=== PATIENT | male | born 1945 | race Caucasian/White ===

== ENCOUNTER 2017-02-12 12:53 | Inpatient (IN) | payer OTHER ==
[2017-02-12] MEDS ORDERED: Albuterol/Ipratropium NEB.SOL* Albuterol 2.5 MG/Ipratropium 0.5 MG 3 ML INH ONE (13:07)
[2017-02-12] MEDS ORDERED: NS 0.9% 1000 ML* 1,000 ML IV SCH (13:15)
[2017-02-12 13:28] LABS: Hematocrit 37 % (42-52); Hemoglobin 12.2 g/dl (14.0-18.0); Mean Corpuscular HGB Conc 33 g/dl (31-36); Mean Corpuscular Hemoglobin 28 pg (27-31); Mean Corpuscular Volume 85 fL (80-94); Mean Platelet Volume 8 um3 (7.4-10.4); Red Blood Count 4.35 10^6/ul (4.0-5.4); Red Cell Distribution Width 15 % (10.5-15); White Blood Count 19.8 10^3/ul (3.5-10.8)
[2017-02-12 13:30] LABS: Add Diff/Slide Review? Slide Review Added; Comments Flag Yes
[2017-02-12 13:42] LABS: ALT 26 U/L (7-52); AST 20 U/L (13-39); Albumin 3.3 g/dL (3.2-5.2); Alkaline Phosphatase 93 U/L (34-104); Anion Gap 10 mmol/L (2-11); BUN/Creatinine Ratio 31.7 (8-20); Blood Urea Nitrogen 59 mg/dL (6-24); C Reactive Protein 459.29 mg/L (< 5.00); CO2 Carbon Dioxide 25 mmol/L (22-32); Calcium 9.5 mg/dL (8.6-10.3); Chloride 97 mmol/L (101-111); Creatine Kinase 107 U/L (10-223); EGFR African American 46.3 (>60); Globulin 4.3 g/dL (2-4); Glucose 163 mg/dL (70-100); Lipase < 10 U/L (11.0-82.0); Magnesium 2.9 mg/dL (1.9-2.7); Potassium 4.5 mmol/L (3.5-5.0); Sodium 132 mmol/L (133-145); Total Protein 7.6 g/dL (6.4-8.9)
[2017-02-12] MEDS ORDERED: Azithromycin IV(*) 500 MG in NS 0.9% 250 ML* 250 ML IVPB ONE (13:43)
[2017-02-12] MEDS ORDERED: cefTRIAXone(*) 1 GM in NS 0.9% 50 ML* 50 ML IVPB ONE (13:43)
[2017-02-12 13:46] LABS: Troponin I 0.34 ng/mL (<0.04)
[2017-02-12] MEDS ORDERED: Aspirin Low Dose CHEW TAB* 81 MG PO ONE (13:46)
[2017-02-12] MEDS ORDERED: NS 0.9% 250 ML* 250 ML ONE (13:48)
[2017-02-12] MEDS ORDERED: Iodixanol* (CONTRAST) 320 MG/ML 100 ML SDV IV ONE (13:52)
[2017-02-12 14:25] LABS: TSH (Thyroid Stimulating Horm) 0.69 mcIU/mL (0.34-5.60)
[2017-02-12 14:31] LABS: Urine Bacteria Absent (Absent); Urine Bilirubin Negative (Negative); Urine Glucose Negative (Negative); Urine Nitrite Negative (Negative)
[2017-02-12] MEDS ORDERED: Albuterol/Ipratropium NEB.SOL* Albuterol 2.5 MG/Ipratropium 0.5 MG 3 ML INH PRN (14:47)
[2017-02-12] MEDS ORDERED: Acetaminophen TAB* 325 MG PO PRN (14:47)
[2017-02-12] MEDS ORDERED: Al Hydrox/Mg Hydrox/Simet LIQ* 30 ML UDC PO PRN (14:47)
--- NOTE | 2017-02-12 14:49 | RAD ---
INDICATION: Chest pain. Short of breath. Evaluate for pulmonary embolus. COMPARISON: Screening CT examination of the chest October 07, 2016; external chest x-ray February 12, 2017 TECHNIQUE: Axial source images were obtained from the thoracic inlet to the hemidiaphragms following administration of [address] angiographic technique was utilized. Coronal and sagittal reconstructed images were acquired. CHEST FINDINGS: Neck/thyroid: The visualized neck to include the thyroid appear normal. Chest wall: There are no acute abnormalities of the bony thorax or chest wall. There is no supraclavicular, infraclavicular, or axillary lymphadenopathy. Lungs : There is now significant left-sided atelectasis with volume loss and mild mediastinal shift to left. These findings are all new. The right lung is clear aside from mild gravity dependent atelectasis. Cardiomediastinal structures: There is no CT evidence of acute pulmonary embolic disease. The heart is normal in size. There is no pericardial effusion. There is no evidence of aortic aneurysm or dissection. There is is a mildly prominent right peritracheal lymph node measuring 1.1 cm in short axis. There are additional lymph nodes but none is enlarged by size criteria. The esophagus appears normal. Pleura : There is significant left subpleural fluid with multiple areas of loculation both posterolaterally and anteromedially extending to near the apex. Other: None. IMPRESSION: 1. INTERVAL DEVELOPMENT OF SIGNIFICANT CONSOLIDATION/ATELECTASIS LEFT LOWER LOBE. 2. NEW LOCULATED PLEURAL FLUID LEFT CHEST. 3. REFERRAL FOR BRONCHOSCOPY MAY BE INDICATED. A CHEST TUBE MAY BE REQUIRED TO AID IN LUNG REEXPANSION 4. NO CT EVIDENCE OF ACUTE PULMONARY EMBOLIC DISEASE.
[2017-02-12] MEDS: cefTRIAXone VIAL(*) 1,000 MG in NS 0.9% 50 ML* 50 ML IVPB SCH (15:10)
[2017-02-12] MEDS ORDERED: Dextrose 50% Syringe 50 ML* 25 GM/50 ML SYRINGE IV PUSH PRN (15:28)
[2017-02-12] MEDS: NS 0.9% 1000 ML* 1,000 ML IV ONE ×2 (15:31→15:56)
[2017-02-12] MEDS ORDERED: Perflutren Lipid Microsphere* 3 ML VIAL ONE (16:24)
--- NOTE | 2017-02-12 16:55 | ED ---
Deacon Peterson Rebecca, scribed for Donny Hamilton MD on 02/12/17 at 1318 . Shortness of Breath - HPI Summary HPI Summary: Pt is a 72 y/o M BIBA from his PCPs office who presents to ED c/o SOB characterized as dyspnea at rest. Pt reports he has not been feeling well for the last 2 weeks. Sx aggravated and alleviated by nothing, unchanged by respiratory Tx administered by EMS. Additionally c/o productive cough with the mucous being yellow. Denies fever, chills, edema, and abd pain. Recently returned from long travel. Does not use O2 at home and is not on blood thinners. Pt was sent to [facility] ED by his PCP after a CXR was done, showing PNA, per EMS. SHx current smoker. No PMHx CHF, AK. - History of Current Complaint Chief Complaint: EDShortnessOfBreath Time Seen by Provider: 02/12/17 12:54 Hx Obtained From: Patient Onset/Duration: Still Present Dyspnea At: Rest Aggrevating Factors: Nothing Alleviating Factors: Nothing Associated Signs & Symptoms: Cough (Productive) - Allergy/Home Medications Allergies/Adverse Reactions: Allergies Allergy/AdvReac Type Severity Reaction Status Date / Time Sulfa Antibiotics Allergy Unknown Unknown Verified 02/12/17 15:34 Reaction Details Home Medications: Home Medications Aspirin TAB* [Aspirin 325 MG TAB*] 325 mg PO DAILY 02/12/17 [History Confirmed 02/12/17] Atorvastatin* [Lipitor*] 10 mg PO DAILY 02/12/17 [History Confirmed 02/12/17] Cholecalciferol [Vitamin D3] 10,000 unit PO DAILY 02/12/17 [History Confirmed ] Lisinopril TAB* [Prinivil TAB*] 10 mg PO DAILY 02/12/17 [History Confirmed 02/12] Magnesium Oxide TAB* [MagOx 400 TAB*] 800 mg PO DAILY 02/12/17 [History Confirmed 02/12/17] Morphine Sulfate [Morphine Sulfate ER] 15 mg PO TID PRN MDD 30 mg 02/12/17 [ History Confirmed 02/12/17] Percy-3 Fatty Acids (Nf) [Fish Oil (NF)] 1,000 mg PO BID 02/12/17 [History Confirmed 02/12/17] Pramipexole TAB* [Mirapex TAB*] 0.125 mg PO BID 02/12/17 [History Confirmed ] metFORMIN* [Glucophage 500 MG TAB *] 500 mg PO BID 02/12/17 [History Confirmed 02/12/17] oxyCODONE TAB* [Roxycodone TAB 5 mg*] 15 mg PO Q8HR PRN MDD 45 mg 02/12/17 [ History Confirmed 02/12/17] PMH/Surg Hx/FS Hx/Imm Hx Endocrine/Hematology History: Reports: Hx Diabetes - TYPE II DIABETES Cardiovascular History: Denies: Hx Congestive Heart Failure, Hx Myocardial Infarction Respiratory History: Reports: Hx Sleep Apnea Musculoskeletal History: Reports: Hx Arthritis - KNEES Sensory History: Reports: Hx Cataracts, Hx Contacts or Glasses - GLASSES Opthamlomology History: Reports: Hx Cataracts, Hx Contacts or Glasses - GLASSES Psychiatric History: Reports: Hx Depression - Surgical History Surgery Procedure, Year, and Place: REPAIR RIGHT ANKLE FX-CMC. TONSILS REMOVED A CHILD Hx Anesthesia Reactions: No Infectious Disease History: Denies: Traveled Outside the [place] in Last 30 Days - Family History Known Family History: Positive: Other - [place] - Social History Alcohol Use: Daily Substance Use Type: Reports: None Smoking Status (MU): Heavy Every Day Tobacco Smoker Review of Systems Negative: Fever, Chills Positive: Shortness Of Breath - dyspnea at rest, Cough - productive Negative: Abdominal Pain Negative: Edema All Other Systems Reviewed And Are Negative: Yes Physical Exam - Summary Physical Exam Summary: General: Moderately ill-appearing, mild respiratory distress Skin: warm, color reflects adequate perfusion, dry Head: normal Eyes: EOMI, NAVEED ENT: normal Neck: supple, nontender Respiratory: breath sounds present, bilateral rhonchi Cardiovascular: RRR Abdomen: soft, nontender Bowel: present Musculoskeletal: strength/ROM intact, bilateral pedal edema Neurological: normal, sensory/motor intact, A&O x3 Psychological: affect/mood appropriate Triage Information Reviewed: Yes Vital Signs On Initial Exam: Initial Vitals Temp Pulse Resp BP Pulse Ox 97.9 F 81 18 175/90 92 02/12/17 12:58 02/12/17 12:58 02/12/17 12:58 02/12/17 12:58 02/12/17 12:58 Vital Signs Reviewed: Yes - [place] Coma Scale Coma Scale Total: 15 Diagnostics - Vital Signs Vital Signs Temp Pulse Resp BP Pulse Ox 02/12/17 12:58 97.9 F 81 18 175/90 92 - Laboratory Lab Results: Lab Results 02/12/17 02/12/17 02/12/17 Range/Units 13:10 13:10 13:10 WBC 19.8 H (3.5-10.8) 10^3/ul RBC 4.35 (4.0-5.4) 10^6/ul Hgb 12.2 L (14.0-18.0) g/dl Hct 37 L (42-52) % MCV 85 (80-94) fL MCH 28 (27-31) pg MCHC 33 (31-36) g/dl RDW 15 (10.5-15) % Plt Count 531 H (150-450) 10^3/ul MPV 8 (7.4-10.4) um3 Neut % (Auto) 86.2 H (38-83) % Lymph % (Auto) 5.1 L (25-47) % [place] % (Auto) 7.3 (1-9) % Eos % (Auto) 0.3 (0-6) % Baso % (Auto) 1.1 (0-2) % Absolute Neuts (auto) 17.1 H (1.5-7.7) 10^3/ul Absolute Lymphs (auto) 1.0 (1.0-4.8) 10^3/ul Absolute Monos (auto) 1.4 H (0-0.8) 10^3/ul Absolute Eos (auto) 0.1 (0-0.6) 10^3/ul Absolute Basos (auto) 0.2 (0-0.2) 10^3/ul Absolute Nucleated RBC 0.01 10^3/ul Nucleated RBC % 0 INR (Anticoag Therapy) 1.19 H (0.89-1.11) APTT 26.8 (26.0-36.3) seconds D-Dimer, Quantitative > 1050 H (Less Than 230) ng/mL Sodium 132 L (133-145) mmol/L Potassium 4.5 (3.5-5.0) mmol/L Chloride 97 L (101-111) mmol/L Carbon Dioxide 25 (22-32) mmol/L Anion Gap 10 (2-11) mmol/L BUN 59 H (6-24) mg/dL Creatinine 1.86 H (0.67-1.17) mg/dL Est GFR ( Amer) 46.3 (>60) Est GFR (Non-Af Amer) 36.0 (>60) BUN/Creatinine Ratio 31.7 H (8-20) Glucose 163 H (70-100) mg/dL Lactic Acid (0.5-2.0) mmol/L Calcium 9.5 (8.6-10.3) mg/dL Magnesium 2.9 H (1.9-2.7) mg/dL Total Bilirubin 0.50 (0.2-1.0) mg/dL AST 20 (13-39) U/L ALT 26 (7-52) U/L Alkaline Phosphatase 93 (34-104) U/L Total Creatine Kinase 107 (10-223) U/L CK-MB (CK-2) 8.5 H (0.6-6.3) ng/mL Troponin I 0.34 H* (<0.04) ng/mL C-Reactive Protein 459.29 H (< 5.00) mg/L B-Natriuretic Peptide ( - 100) pg/mL Total Protein 7.6 (6.4-8.9) g/dL Albumin 3.3 (3.2-5.2) g/dL Globulin 4.3 H (2-4) g/dL Albumin/Globulin Ratio 0.8 L (1-3) Lipase < 10 L (11.0-82.0) U/L TSH 0.69 (0.34-5.60) mcIU/mL Urine Color Urine Appearance Urine pH (5-9) Ur Specific Luther (1.010-1.030) Urine Protein (Negative) Urine Ketones (Negative) Urine Blood (Negative) Urine Nitrate (Negative) Urine Bilirubin (Negative) Urine Urobilinogen (Negative) Ur Leukocyte Esterase (Negative) Urine WBC (Auto) (Absent) Urine RBC (Auto) (Absent) Ur Squamous Epith Cells (Absent) Urine Bacteria (Absent) Urine Glucose (Negative) 02/12/17 02/12/17 02/12/17 Range/Units 13:10 13:10 14:00 WBC (3.5-10.8) 10^3/ul RBC (4.0-5.4) 10^6/ul Hgb (14.0-18.0) g/dl Hct (42-52) % MCV (80-94) fL MCH (27-31) pg MCHC (31-36) g/dl RDW (10.5-15) % Plt Count (150-450) 10^3/ul MPV (7.4-10.4) um3 Neut % (Auto) (38-83) % Lymph % (Auto) (25-47) % [place] % (Auto) (1-9) % Eos % (Auto) (0-6) % Baso % (Auto) (0-2) % Absolute Neuts (auto) (1.5-7.7) 10^3/ul Absolute Lymphs (auto) (1.0-4.8) 10^3/ul Absolute Monos (auto) (0-0.8) 10^3/ul Absolute Eos (auto) (0-0.6) 10^3/ul Absolute Basos (auto) (0-0.2) 10^3/ul Absolute Nucleated RBC 10^3/ul Nucleated RBC % INR (Anticoag Therapy) (0.89-1.11) APTT (26.0-36.3) seconds D-Dimer, Quantitative (Less Than 230) ng/mL Sodium (133-145) mmol/L Potassium (3.5-5.0) mmol/L Chloride (101-111) mmol/L Carbon Dioxide (22-32) mmol/L Anion Gap (2-11) mmol/L BUN (6-24) mg/dL Creatinine (0.67-1.17) mg/dL Est GFR ( Amer) (>60) Est GFR (Non-Af Amer) (>60) BUN/Creatinine Ratio (8-20) Glucose (70-100) mg/dL Lactic Acid 1.2 (0.5-2.0) mmol/L Calcium (8.6-10.3) mg/dL Magnesium (1.9-2.7) mg/dL Total Bilirubin (0.2-1.0) mg/dL AST (13-39) U/L ALT (7-52) U/L Alkaline Phosphatase (34-104) U/L Total Creatine Kinase (10-223) U/L CK-MB (CK-2) (0.6-6.3) ng/mL Troponin I (<0.04) ng/mL C-Reactive Protein (< 5.00) mg/L B-Natriuretic Peptide 412 H ( - 100) pg/mL Total Protein (6.4-8.9) g/dL Albumin (3.2-5.2) g/dL Globulin (2-4) g/dL Albumin/Globulin Ratio (1-3) Lipase (11.0-82.0) U/L TSH (0.34-5.60) mcIU/mL Urine Color Yellow Urine Appearance Clear Urine pH 5.0 (5-9) Ur Specific Luther 1.017 (1.010-1.030) Urine Protein 1+(30 mg/dl) H (Negative) Urine Ketones Negative (Negative) Urine Blood Negative (Negative) Urine Nitrate Negative (Negative) Urine Bilirubin Negative (Negative) Urine Urobilinogen Negative (Negative) Ur Leukocyte Esterase Negative (Negative) Urine WBC (Auto) Trace(0-5/hpf) (Absent) Urine RBC (Auto) Trace(0-2/hpf) (Absent) Ur Squamous Epith Cells Present H (Absent) Urine Bacteria Absent (Absent) Urine Glucose Negative (Negative) Result Diagrams: 02/12/17 13:10 02/12/17 13:10 Lab Statement: Any lab studies that have been ordered have been reviewed, and results considered in the medical decision making process. - CT Chest/Thorax CTA CT Interpretation: Positive (See Comments) - 1. INTERVAL DEVELOPMENT OF SIGNIFICANT CONSOLIDATION/ATELECTASIS LEFT LOWER LOBE. 2. NEW LOCULATED PLEURAL FLUID LEFT CHEST. 3. REFERRAL FOR BRONCHOSCOPY MAY BE INDICATED. A CHEST TUBE MAY BE REQUIRED TO AID IN LUNG REEXPANSION 4. NO CT EVIDENCE OF ACUTE PULMONARY EMBOLIC DISEASE. ED physician reviewed this radiology report and agrees. CT Interpretation Completed By: Radiologist - EKG 1324 Cardiac Rate: NL - 80 bpm EKG Rhythm: Sinus Rhythm Ectopy: None EKG Interpretation: Non-specific IVCD with LAD Re-Evaluation - Re-Evaluation First Eval Re-Evaluation Time: 13:48 Comment: Discussed plan to admit the pt. Course/Dx - Course Assessment/Plan: Pt is a 72 y/o M BIBA from his PCPs office who presents to ED c /o SOB characterized as dyspnea at rest. Pt reports he has not been feeling well for the last 2 weeks. Sx unchanged by respiratory Tx administered by EMS. Additionally c/o productive cough with the mucous being yellow. Denies fever, chills, edema, and abd pain. Recently returned from long travel. Does not use O2 at home and is not on blood thinners. Pt was sent to [facility] ED by his PCP after a CXR was done, showing PNA, per EMS. SHx current smoker. No PMHx CHF, AK. D- Dimer > 1050, CRP of 459.29, Troponin of 0.34, WBC of 19.8 H. Chest/thorax CTA reveals "1. INTERVAL DEVELOPMENT OF SIGNIFICANT CONSOLIDATION/ATELECTASIS LEFT LOWER LOBE. 2. NEW LOCULATED PLEURAL FLUID LEFT CHEST. 3. REFERRAL FOR BRONCHOSCOPY MAY BE INDICATED. A CHEST TUBE MAY BE REQUIRED TO AID IN. LUNG REEXPANSION. 4. NO CT EVIDENCE OF ACUTE PULMONARY EMBOLIC DISEASE." EKG reveals sinus rhythm with non-specific IVCD with LAD. In the ED course, the pt received ASA, Rocephin, Zithromax, Duoneb and fluids. Discussed care of pt with Dr. Iliana Faith, hospitalist, who accepts the pt for admission. Elevated BP noted and advised to f/u with PCP. ADMIT HOSPITALIST TO ICU - Diagnoses Provider Diagnoses: Pneumonia, Elevated troponin, Hypoxia - Physician Notifications Discussed Care of Patient With: Iliana Faith Time Discussed With Above Provider: 13:35 Instructed by Provider To: Other - Accepted the pt for admission. - Critical Care Time Critical Care Time: 30-74 min Discharge - Discharge Plan Condition: Guarded Disposition: ADMITTED TO [facility] documentation as recorded by the Deacon arthur Rebecca accurately reflects the service I personally performed and the decisions made by me, Donny Hamilton MD.
[2017-02-12] MEDS ORDERED: Lidocaine 1% INJ* 10 MG/ML 30 ML SDV ONE (17:19)
[2017-02-12] MEDS: oxyCODONE/Acetamin 5/325 MG* TAB PO PRN ×2 (18:14→23:19)
[2017-02-12] MEDS: Insulin LISPRO* 1 UNITS UNIT SUBCUT SCH ×2 (18:28→21:48)
--- NOTE | 2017-02-12 18:45 | RAD ---
HISTORY: Status post chest tube placement COMPARISONS: February 12, 2017 at 12:45 PM VIEWS:1: Single frontal portable view of the chest at 6:25 PM FINDINGS: LINES AND TUBES: There is been interval placement of left-sided chest tube. CARDIOMEDIASTINAL SILHOUETTE: The cardiomediastinal silhouette is stable. PLEURA: There is a moderate left pleural effusion, slightly decreased compared to the previous examination. LUNG PARENCHYMA: There is patchy alveolar opacification of the left mid and lower lung pascal ABDOMEN: The upper abdomen is clear. There is no subphrenic gas. BONES AND SOFT TISSUES: No bone or soft tissue abnormalities are noted. IMPRESSION: 1. LEFT PLEURAL EFFUSION WITH LEFT MID AND LOWER LUNG ATELECTASIS VERSUS CONSOLIDATION. 2. LEFT-SIDED CHEST TUBE
[2017-02-12] MEDS: Docusate CAP* 100 MG PO SCH (21:04)
[2017-02-12] MEDS: oxyCODONE TAB* 5 MG TAB PO PRN (21:04)
[2017-02-12] MEDS: Pramipexole TAB* 0.125 MG PO SCH (21:04)
--- NOTE | 2017-02-12 21:26 | HP ---
CC: Dr. Perdomo; Dr. Haines, Dr. Cordova; Dr. Crocker * HISTORY AND PHYSICAL: DATE OF ADMISSION: 02/12/17 PRIMARY CARE PROVIDER: Dr. Perdomo. CHIEF COMPLAINT: Shortness of breath, cough, and weakness. HISTORY OF PRESENT ILLNESS: Hosea Vasquez is a 72-year-old male with history of diabetes, hypertension, hyperlipidemia, obesity, who stated that he had been traveling to [place] and [place]. He flew in and out of [place] within the past several days. He stated that for the past 5 days, he has been having cough productive of yellow sputum and pain in the left axillary region that was pleuritic. When he was evaluated today in the ER, he was noted to be hypoxemic with oxygen saturation of 88% on room air. He had significant loculated left- sided pleural effusion. He is going to be admitted to the intensive care unit with a diagnosis of most likely empyema. PAST MEDICAL HISTORY: 1. Diabetes, type 2. 2. Obesity. 3. Hypertension. 4. Dyslipidemia. 5. Gastroesophageal reflux disease. 6. Chronic pain. 7. Obstructive sleep apnea. MEDICATIONS: At home, include: 1. Vitamin D3 10,000 units daily. 2. Lipitor 10 mg daily. 3. [place]-3 fatty acids 1000 mg b.i.d. 4. Oxycodone 15 mg on a p.r.n. basis up to 4 times a day. 5. Mag-Ox 800 mg daily. 6. Mirapex 0.125 mg b.i.d. 7. Lisinopril 10 mg daily. 8. Aspirin 325 mg daily. 9. Metformin 500 mg b.i.d. ALLERGIES: SULFA. FAMILY HISTORY: Father at the age of 59 secondary to accident. Mother due to colon cancer in her 60s. 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 He has history of smoking at least 50 pack year. He drinks alcohol rarely. His surrogate decision maker is his , Jacklyn. REVIEW OF SYSTEMS: Please see history of present illness. The patient denies any substernal chest pain or pressure. He localizes his pain in the left axillary region that is worse with change of position or deep breathing. He stated that his cough had been ongoing for 5 days. He also had intermittent fevers, but he did not measure his temperature per se. He has been constipated. His last bowel movement was 4 days ago. His appetite has been poor. All the remaining 14 systems were reviewed with the patient and were otherwise negative. PHYSICAL EXAMINATION GENERAL: The patient is a very pleasant 72-year-old male with a BMI of 48. The patient is in no acute distress. He is alert, awake, and oriented x3. VITAL SIGNS: Blood pressure of 156/72, heart rate of 79 and regular, respiratory rate 19, oxygen saturation % on 5 L oxygen via nasal cannula, temperature 97.9. HEENT: Head: Atraumatic, normocephalic. Eyes: Pupils equal, round, and reactive to light and accommodation. Oropharynx clear. Mucosa moist. NECK: Supple. No JVD, no bruits bilaterally. RESPIRATORY: Bibasilar rhonchi on evaluation with decreased breath sounds in the left axillary region. CARDIOVASCULAR: Regular rate and rhythm. No murmur. ABDOMEN: Very protuberant, tympanic to percussion, soft and nontender. Bowel sounds present in all 4 quadrants. EXTREMITIES: There is +1 pitting pedal edema bilaterally. Pulses +2 bilaterally. There is no clubbing or cyanosis. NEUROLOGIC: Speech clear. Cranial nerves II through XII grossly intact. Motor strength is 5/5 bilaterally. PSYCHIATRIC: The patient is pleasant, cooperative with evaluation. Oriented x3 with no evidence of anxiety or depression. SKIN: On evaluation of the skin, no ecchymotic areas or rashes noted. DIAGNOSTIC STUDIES/LAB DATA: Show a white blood cell count of 19.8, hemoglobin of 12.2, hematocrit of 37, and platelets of 531. INR of 1.19, PTT of 26.8. D-dimer above 1000. Sodium was 138, potassium of 4.5, chloride 97, carbon dioxide 95, BUN 59, creatinine 1.86. Liver function tests were unremarkable. The patient's troponin was 0.34, repeat troponin is 0.31. C- reactive protein is 459. Brain natriuretic peptide was 412. TSH of 0.69. Urinalysis grossly unremarkable apart from trace of protein. The patient's EKG showed intraventricular conduction delay with left anterior hemiblock and nonspecific ST changes in V1 to V6 with downsloping STs and reverse T waves. Comparing from an EKG from 2011, the T-wave inversion and downsloping STs are new. CT angiogram of the chest, impression: "Interval development of significant consolidation and atelectasis at the left lower lobe. New loculated pleural effusion, fluid left chest. Referral for bronchoscopy may be indicated. A chest tube may be required to aid in lung expansion. No CT evidence of acute pulmonary embolic disease." ASSESSMENT AND PLAN: 1. The patient likely has empyema in the left chest. He clearly has acute hypoxemic respiratory failure and acute renal failure due to the sepsis due to pneumonia. The patient is going to be continued with ceftriaxone and azithromycin. Urine legionella antigen and pneumococcal antigens are going to be obtained as well as sputum cultures. I have asked the pulmonology specialist , Dr. Crocker, to see the patient in consultation. I also asked Dr. Cordova from Surgery to aid in placement of chest tube. 2. In regards to acute renal failure, likely due to severe sepsis. The patient is going to be placed on intravenous hydration especially that he received intravenous contrast in the hospital for CT angiogram to rule out PE. I will follow up his creatinine in the morning. I will also stop his KRISTIN inhibitor. 3. For his diabetes, the patient's oral hypoglycemics are going to be held. The patient is going to be placed on insulin sliding scale. 4. In regards to hypertension, lisinopril is going to be held. The patient is actually mildly hypertensive. I will place him on low-dose beta cecy with p.r.n. parameters. 5. The patient has EKG changes and elevated troponins. Despite that, he complains of no chest pain that would suggest acute coronary syndrome. His troponins are actually lower now than at admission. It is possible that it is most likely demand ischemia. I will continue him on aspirin as well as atorvastatin. 6. For DVT prophylaxis, the patient is going to be placed on heparin subcutaneously. 7. In regards to the patient's code status, the patient's code status is full and his surrogate is his , Jacklyn. 8. The patient is going to be admitted to the intensive care unit. Overall, he appears very ill with sepsis, elevated C-reactive protein of over 400, as well as demand ischemia, and acute hypoxemic respiratory failure, and acute renal failure. We will follow with him closely. TIME SPENT: Approximately 66 minutes was spent on admission of this patient. More than half the time was spent [id number] with the patient. [id number]/[facility] #: [id number]
[2017-02-12] MEDS: Heparin VIAL(*) 5000 UNITS/ML VIAL (FIVE THOUSAND) SUBCUT SCH (22:08)
[2017-02-13] MEDS: Ondansetron INJ* 2 MG/ML VIAL IV PRN ×7 (00:06→23:22)
[2017-02-13] MEDS: oxyCODONE/Acetamin 5/325 MG* TAB PO PRN ×2 (05:02→10:16)
[2017-02-13] MEDS: Heparin VIAL(*) 5000 UNITS/ML VIAL (FIVE THOUSAND) SUBCUT SCH ×3 (06:30→22:53)
[2017-02-13] MEDS: Albuterol/Ipratropium NEB.SOL* Albuterol 2.5 MG/Ipratropium 0.5 MG 3 ML INH SCH ×4 (07:33→19:57)
--- NOTE | 2017-02-13 07:36 | ECHO ---
Patient: ROBBIE MITCHELL [facility] Rec#: [id number] : 1945 Date: 02/12/2017 Age: 72y Height: 180.34 cm / 71.0 in Weight: 156.04 kg / 343.9 lbs Sex: M BSA: 2.66 Room#: ICU-2 Admit Date#: 02/12/2017 Type: Inpatient Referring: Iliana Faith MD Reading: Edgar Oneill MD Product Safety Associate: Kamla Garcia RDCS Transthoracic Echocardiogram Indication: SOB BP: 156/72 HR: 80 Rhythm: NSR Findings History: MISAEL with CPAP, DMII, arthritis. Technical Comments: The study is technically difficult. The study is technically limited due to poor acoustic windows. The study is technically limited due to patient body habitus. Completed at 1717. Left Ventricle: The left ventricular chamber size is normal. There is normal left ventricular systolic function. The estimated ejection fraction is 55-60%. Left Atrium: The left atrium is mildly dilated. Right Ventricle: The right ventricle is not well visualized. Right Atrium: The right atrium is not well visualized. Aortic Valve: The aortic valve is trileaflet. The aortic valve leaflets are mildly thickened. There is a trace of aortic regurgitation. There is no evidence of aortic stenosis. Mitral Valve: The mitral valve leaflets are mildly thickened. There is a trace of mitral regurgitation. There is no evidence of mitral stenosis. Tricuspid Valve: The tricuspid valve structure is not well visualized. Unable to estimate the right ventricular systolic pressure. There is no tricuspid stenosis. Pulmonic Valve: The pulmonic valve structure is not well visualized. There is a trace pulmonic regurgitation. There is no pulmonic stenosis. Pericardium: There is no significant pericardial effusion. A pericardial fat pad is visualized. A left pleural effusion is present. Aorta: There is mild dilatation of the ascending aorta. The aortic arch is not well visualized. There is no dilation of the aortic root. Pulmonary Artery: The main pulmonary artery is not well visualized. Venous: The inferior vena cava is dilated. There is a greater than 50% respiratory change in the inferior vena cava dimension. Contrast: Definity was used to optimize study. 6 mL of diluted Definity was utilized. Intravenous contrast was used to enhance endocardial border definition. Conclusions The study is technically limited due to poor acoustic windows. The study is technically limited due to patient body habitus. Poor quality images for reliable assessment. LV function analysis aided by contrast. There is normal left ventricular systolic function. The estimated ejection fraction is 55-60%. No accurate assessment of right sided structures can be made due to poor quality imaging The left atrium is mildly dilated. There is a trace of aortic regurgitation. There is a trace of mitral regurgitation. There is a trace pulmonic regurgitation. There is mild dilatation of the ascending aorta. No reports of prior studies are offered for comparison Measurements Name Value Normal Range RVIDd (AP) 2D 4 cm (0.9 - 2.6) RVDdMajor (2D) 6 cm (2.2 - 4.4) RAd ISD 4CH 5.4 cm (3.4 - 4.9) RA (A4C)W 5.5 cm (2.9 - 4.6) IVSd (2D) 1.3 cm (0.6 - 1) LVPWd (2D) 1.3 cm (0.6 - 1) LVIDd (2D) 4.1 cm (3.6 - 5.4) LVIDs (2D) 3.4 cm - LV FS (2D) 18 % (25 - 45) Aortic Annulus 2.4 cm (1.4 - 2.6) Ao root diameter (2D) 3.1 cm (2.1 - 3.5) Ascending Ao 3.7 cm (2.1 - 3.4) LA dimension (AP) 2D 4.4 cm (2.3 - 3.8) LAd ISD 4CH 5.9 cm (2.9 - 5.3) LA ISD 4CH W 4.4 cm (2.5 - 4.5) Name Value Normal Range LA ESV SP 4CH (A/L) 63 ml - LA ESV SP 2CH (A/L) 103 ml - LA ESV BP (A/L) 87 ml - LA ESV BP (A/L) index 32.7 ml/m2 - LA ESV SP 4CH (MOD) 58 ml - LA ESV SP 2CH (MOD) 100 ml - Name Value Normal Range MV E-wave Vmax 0.68 m/sec - MV deceleration time 173.6 msec - MV A-wave Vmax 0.57 m/sec - MV E:A ratio 1.19 ratio - LV septal e' Vmax 0.08 m/sec - LV lateral e' Vmax 0.1 m/sec - LV E:e' septal ratio 8.5 ratio - LV E:e' lateral ratio 6.8 ratio - Name Value Normal Range AV Vmax 1.3 m/sec - AV VTI 24.83 cm - AV peak gradient 6.87 mmHg - AV mean gradient 4.16 mmHg - LVOT Vmax 1.1 m/sec - LVOT VTI 19.1 cm - LVOT peak gradient 4.68 mmHg - LVOT mean gradient 2.5 mmHg - Name Value Normal Range RAP 15 mmHg - IVC diameter 3.7 cm - Name Value Normal Range PV Vmax 0.81 m/sec - PV peak gradient 2.63 mmHg -
[2017-02-13 07:40] LABS: Body Fluid Appearance Bloody
[2017-02-13 07:49] LABS: Body Fluid WBC 595 /mcL
[2017-02-13 08:05] LABS: Body Fluid Total Cells Counted 100
[2017-02-13] MEDS: Insulin LISPRO* 1 UNITS UNIT SUBCUT SCH ×4 (08:23→21:41)
[2017-02-13] MEDS: oxyCODONE TAB* 5 MG TAB PO PRN (08:24)
[2017-02-13] MEDS: Magnesium Oxide TAB* 400 MG PO SCH (08:24)
[2017-02-13] MEDS: Aspirin TAB* 325 MG PO SCH (08:24)
[2017-02-13] MEDS: Atorvastatin* 10 MG TAB PO SCH (08:24)
[2017-02-13] MEDS: Docusate CAP* 100 MG PO SCH ×2 (08:26→21:41)
[2017-02-13] MEDS: Pramipexole TAB* 0.125 MG PO SCH ×2 (08:26→21:55)
--- NOTE | 2017-02-13 08:33 | RAD ---
INDICATION: Increased expiratory wheeze, diaphoresis. COMPARISON: Comparison is made with prior chest x-ray studies from February 12, 2017. TECHNIQUE: A portable view of the chest was obtained. FINDINGS: The heart appears mildly enlarged. The patient is status post placement of a chest tube on the left side and drainage of a large loculated pleural effusion. There is some residual fluid in density present laterally within the left hemithorax which is slightly decreased from the prior exam. The right lung appears clear. IMPRESSION: LOCULATED LEFT PLEURAL EFFUSION SLIGHTLY DECREASED FROM THE PRIOR EXAM, LEFT CHEST TUBE IN PLACE.
--- NOTE | 2017-02-13 08:37 | CONS ---
PULMONARY CONSULTATION REPORT: DATE OF CONSULT: 02/13/17 CONSULTATION REQUESTED BY: Iliana Faith MD REASON FOR CONSULT: Evaluation of loculated left pleural effusion. HISTORY OF PRESENT ILLNESS: The patient is a 72-year-old male, retired, former smoker with [id number] smoking history and occasional alcohol intake. The patient was brought into the emergency room for evaluation of worsening shortness of breath, cough, and generalized weakness. The patient has been traveling recently to [place] and [place]. He flew in and out of [place] within the past several days. He started having cough productive of yellow phlegm 5 days prior to the presentation. Symptoms have been gradually worsening. He also had pleuritic chest pain in the left axillary region. The patient also reported generalized weakness. The patient was noted to be hypoxemic with O2 sats at 88% on room air while in the emergency room. The patient had chest x-ray, which showed evidence of left pleural effusion and atelectasis. The patient subsequently underwent CT scan which was personally reviewed by me - patient noted to have large loculated left pleural effusion with mediastinal shift to the left and left lung atelectasis. The patient also noted to have prominent right paratracheal lymph node. Patient also with evidence of hyperinflation of right lung. The patient had low dose CT scan in September 2016, which was also personally reviewed by me - patient with evidence of hyperinflation with no suspicious nodules or masses. No endobronchial lesions were noted. No pleural effusion noted at that time. Patient subsequently was admitted to the intensive care unit, had chest tube placed. The patient has been having good output through chest tube which is serosanguineous this morning. The patient is currently on O2 supplementation at 5 L per minute. The patient had 144 mL output through the chest tube. The patient was seen and examined at bedside this morning. The patient reported mild discomfort on the left chest. The patient denies fevers or chills , significant dyspnea. Continues to have cough productive of yellow phlegm. He was diaphoretic when I saw him and also c/o nausea. He was complaining of during the night. He also c/o indigestion, heart burn, received Maalox. Obtained EKG, blood sugar, gave nebulizer treatment. PAST MEDICAL HISTORY: 1. Diabetes. 2. Obesity. 3. Obstructive sleep apnea. 4. Hypertension. 5. Dyslipidemia. 6. Gastroesophageal reflux disease. 7. Chronic pain. 8. COPD. MEDICATIONS: 1. Vitamin D3. 2. Lipitor. 3. Dunlo-3 fatty acids. 4. Oxycodone. 5. Mag-ox. 6. Mirapex. 7. Lisinopril. 8. Aspirin. 9. Metformin. ALLERGIES: SULFA. FAMILY HISTORY: Father at 59 from accident. Mother due to colon cancer in her 60s. 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 Occasional alcohol intake. REVIEW OF SYSTEMS: All 14 systems reviewed and as per HPI. PHYSICAL EXAM: The patient in bed, in no apparent distress, obese male. Vital Signs: Temperature 97.3, pulse 64 beats per minute, respiratory rate 17 per minute, O2 sat 95% on 5 L, blood pressure 154/69. HEENT: Pupils equal, reactive to light. Mucous membranes moist. Neck: Supple. No JVD. Respiratory: Coarse breath sounds bilaterally, decreased at the left base, scattered wheeze present. Cardiovascular: S1, S2 present. Regular. Abdomen: Soft. Bowel sounds present. Nontender, nondistended. Extremities: Normal range of motion. No cyanosis or clubbing. Neurologic: No focal deficits. Skin: No rash or ecchymosis. DIAGNOSTIC STUDIES/LAB DATA: WBC count elevated at 19.8, hemoglobin 12.2, hematocrit 37, platelet count 531,000. Sodium 132, potassium 4.5, chloride 97, bicarb 25, BUN 59, creatinine 1.6, lactic acid 1.2, CRP elevated at 459, BNP 412, troponins elevated at 0.34. TSH within normal limits. Negative legionella and strep pneumo antigen. Pleural fluid cultures showed 2+ gram-positive cocci. Cultures pending otherwise. CT of the chest as described above in HPI. EKG showed evidence of sinus rhythm with no acute ST-T wave changes. IMPRESSION/RECOMMENDATIONS: 72-year-old male, former smoker, admitted with loculated left pleural effusion, productive cough, shortness of breath and generalized weakness concerning for possible empyema. The patient had chest tube placement yesterday by Surgery. The patient with 250 cc of output through the chest tube. Will repeat chest x-ray this morning. The patient might be candidate for thrombolytics if the patient did not have enough output through the chest tube. Will decide after rpt CT chest. EKG unchanged from admission, prolonged QT, will need to avoid drugs that could affect QT interval. Pt with significant wheeze on auscultation, receiving bronchodilators. Will repeat blood cultures, Body fluid cx and cytology pending Continue with ceftriaxone and azithromycin. Continue with bronchodilators. Chest tube care. Thank you for allowing me to participate in the care of your patient. Will follow up with you. [id number]/[facility] #: [id number] SARAH
[2017-02-13 08:38] LABS: BUN/Creatinine Ratio 34.8 (8-20); Calcium 9.2 mg/dL (8.6-10.3); EGFR African American 80.6 (>60); EGFR Non-African American 62.7 (>60); Potassium 4.6 mmol/L (3.5-5.0)
[2017-02-13 08:39] LABS: Comments Flag Yes; Hematocrit 40 % (42-52); Hemoglobin 13.2 g/dl (14.0-18.0); Mean Corpuscular HGB Conc 33 g/dl (31-36); Mean Corpuscular Hemoglobin 29 pg (27-31); Mean Corpuscular Volume 87 fL (80-94); Red Blood Count 4.58 10^6/ul (4.0-5.4); Red Cell Distribution Width 15 % (10.5-15)
[2017-02-13 08:40] LABS: Add Diff/Slide Review? Manual Diff Added
[2017-02-13] MEDS ORDERED: Atorvastatin* 40 MG TAB PO SCH (09:00)
[2017-02-13 09:54] LABS: Eosinophils % 1 % (0-6); Immature Granulocytes 1 % (0-9); Myelocytes % 1 % (0-1); Neutrophil % 89 % (38-83)
[2017-02-13 09:55] LABS: RBC Morphology Normal (Normal)
[2017-02-13 09:57] LABS: Mean Platelet Volume 8 um3 (7.4-10.4); White Blood Count 23.5 10^3/ul (3.5-10.8)
[2017-02-13] MEDS: fentaNYL* 50 MCG/ML 2 ML VIAL (100 MCG VIAL) IV SLOW PU PRN ×5 (11:26→21:37)
[2017-02-13] MEDS: Al Hydrox/Mg Hydrox/Simet LIQ* 30 ML UDC PO PRN ×3 (12:15→23:26)
--- NOTE | 2017-02-13 12:18 | PN ---
Critical Care Services: 72 yo male admitted yesterday with large. loculated left pleural effusion and atelectasis of underlying lung given presumptive Dx of CAP with parapneumonic effusion. Chest tube placed and drained about 250 mls of bloody fluid overnight. Complaining of nausea and heartburn today. Vital Signs: Temp Pulse Resp BP SpO2 FiO2 96.1 F 65 15 157/77 94 Physical Exam: Gen:Apprehensive Lungs:coarse rhonchi left lung. Occasional wheeze in both lungs. Abdomen: Distended but nontender. Bowel sounds +. Extremities:Cool and diaphoretic. Fluid Balance (Past 24 Hours): 02/13/17 06:59 Intake Total 1020 Output Total 1474 Balance -454 Weight 351 lb Intake: IV Fluids 250 Oral 770 Output: Chest Tube #1 224 Urine 1250 Labs: 02/12/17 02/12/17 15:02 18:00 Troponin I 0.31 H* Fluid Source Pleural fluid Fluid Volume 3 Fluid Color Red Fluid Appearance Bloody Fluid WBC 595 Fluid RBC 64846 Fluid Tot Cell Count 100 Fluid Neutrophils 97 Fluid Lymphocytes 2 Fluid Monocytes 1 Fluid Nucleated RBCs 2 Fluid Other Cells 14 Fluid Cell Count Rvw By Fluid Comment 02/12/17 02/13/17 21:23 08:02 Sodium 134 Potassium 4.6 Chloride 99 L Carbon Dioxide 28 Anion Gap 7 BUN 40 H Creatinine 1.15 Est GFR ( Amer) 80.6 Est GFR (Non-Af Amer) 62.7 BUN/Creatinine Ratio 34.8 H Glucose 179 H POC Glucose (mg/dL) Calcium 9.2 Troponin I 0.25 H 02/13/17 08:02 WBC 23.5 RBC 4.58 Hgb 13.2 L Hct 40 L MCV 87 MCH 29 MCHC 33 RDW 15 Plt Count 400 MPV 8 Immature Gran % (Auto) 1 Neut % (Auto) 89.2 H Lymph % (Auto) 4.8 L Vigo % (Auto) 5.6 Eos % (Auto) 0.3 Baso % (Auto) 0.1 Absolute Neuts (auto) 20.9 H Absolute Lymphs (auto) 1.1 Absolute Monos (auto) 1.3 H Absolute Eos (auto) 0.1 Absolute Basos (auto) 0 Absolute Nucleated RBC 0.04 Neutrophils % 89 H Lymphocytes % 4 L Monocytes % 5 Eosinophils % 1 Myelocytes % 1 Nucleated RBC % 0.2 Normal RBC Morphology Normal Sodium Potassium Chloride Carbon Dioxide Anion Gap BUN Creatinine Est GFR ( Amer) Est GFR (Non-Af Amer) BUN/Creatinine Ratio Glucose POC Glucose (mg/dL) Calcium Troponin I Fluid Source Fluid Volume Fluid Color Fluid Appearance Fluid WBC Fluid RBC Fluid Tot Cell Count Fluid Neutrophils Fluid Lymphocytes Fluid Monocytes Fluid Nucleated RBCs Fluid Other Cells Fluid Cell Count Rvw By Fluid Comment Studies: CXR: some clearing of effusion on left. EKG: NSR without acute ST or T wave changes. Pleural fluid is exudative by cell counts. Gram stain shows no organisms. Cytology pending. Nutrition: Oral diet Impression: Large, loculated pleural effusion - DDx is complicated parapneumonic effusion vs neoplastic effusion (patient is a heavy smoker). Plan: 1. Continue chest tube drainage. 2. In light of worsening leukocytosis, I have consulted infectious disease for recs about empiric antibiotic coverage 2. Bronchoscopy if no evidence of infection. Prognosis very guarded in this case. Critical Care Time: 45 minutes (not including time with and daughter).
[2017-02-13] MEDS: Famotidine IV* 10 MG/ML 2 ML (20 mg) IV SCH (14:08)
[2017-02-13] MEDS ORDERED: Azithromycin IV(*) 500 MG in NS 0.9% 250 ML* 250 ML IVPB SCH (15:00)
[2017-02-13] MEDS: cefTRIAXone VIAL(*) 1,000 MG in NS 0.9% 50 ML* 50 ML IVPB SCH (15:08)
[2017-02-13] MEDS: Clindamycin 600 MG IVPREMIX(* 600 MG/50 ML SDV IV SCH (18:09)
--- NOTE | 2017-02-13 22:53 | CONS ---
CONSULTATION REPORT: DATE OF CONSULTATION: 02/13/17 REQUESTING PHYSICIAN: Dr. Ricks. CONSULTING SERVICE: Infectious Disease. REASON FOR CONSULTATION: Empyema. IMPRESSION: 1. Left chest empyema, often gram positive including strep and anaerobic strep from mouth kisha, oc casional gram negative or staph. He has had a sputum Gram stain from the pleural fluid that showed 4+ polys, no organisms. The culture is pending. He is hemodynamically stable and afebrile. 2. Morbid obesity. 3. Diabetes. 4. Allergy to SULFA. RECOMMENDATIONS: 1. Continue ceftriaxone, but we will increase to 2 g a day and add clindamycin 600 mg IV every 8 ho urs. His culture is pending. If it is Staph aureus, it should grow in the specimen. If it is stre p, it may not. 2. Chest tube management per Surgery and Dr. Crocker and Dr. Ricks. If not making progress and there are significant undrained collections that persist given the multiloculations, he may need a VATS procedure. HISTORY OF PRESENT ILLNESS: This is a 72-year-old man with obesity and diabetes, admitted with ____ __ and cough. He had progression of productive cough over a few days before coming to the hospital. He did have occasional chills. No rigors or fever. His appetite was decreased. He had some left axillary and chest pain, and came to the ER on 02/12/17. A CT of the chest showed atelectasis of t he left lower lobe and loculated pleural fluid in the left chest, right paratracheal lymph node. I r eviewed the CT scan, there is extensive loculation and a large left chest pleural effusion. He had a chest tube placed that has drained a few 100 cc's of serous fluid. White count was 19 yesterday, it is 23 today. C-reactive protein is 460 on admission. He has never had an infection like this in the past and no history of tuberculosis. PAST MEDICAL HISTORY: 1. Morbid obesity. 2. Insulin-dependent diabetes. 3. Hypertension. 4. Hyperlipidemia. 5. Gastroesophageal reflux disease. 6. Chronic pain. 7. Obstructive sleep apnea. MEDICATIONS: 1. Albuterol. 2. Aspirin. 3. Lipitor. 4. Heparin subcutaneous injection. 5. Famotidine. 6. Ceftriaxone 1 g daily. 7. Azithromycin 500 mg daily. ALLERGIES: SULFA, he is told by his mom not to take it, does not know if he ever had a reaction. FAMILY HISTORY: No tuberculosis. Father at age 59 due to accident. Mother due to colon cancer in her 60s. SOCIAL HISTORY: Lives in [place]. Recent travel to [place] and [place]. REVIEW OF SYSTEMS: All negative to a full review of systems except as noted above. PHYSICAL EXAM: Vital Signs: Temperature 36, heart rate is 60, respiratory rate 14, blood pressure 170/80, and oxygen saturation 95% on 5 L. In general, he is awake, appears uncomfortable, not diaph oretic, not in distress. HEENT: There is no conjunctival hemorrhage. Oropharynx is without lesion s. Neurologic: He is awake, oriented, follows commands. Moves all his extremities. Neck is suppl e without nuchal rigidity. Lymph Nodes: There is no cervical, supraclavicular, inguinal, axillary, or epitrochlear lymphadenopathy. Heart has regular rate and rhythm without murmurs, rubs, or pino ps. Lungs have significant decreased breath sounds in the left lung field. There is no wheeze or r aleshia. Chest: There is a left chest tube without crepitus or erythema. Abdomen is soft, nontender. There are decreased bowel sounds, though they are present. There is no rebound. Skin: There is no rash or splinter hemorrhages. Musculoskeletal: There is no spine tenderness to palpation. No jude nt synovitis. LABORATORY DATA: Creatinine 1.1. Troponin 0.12, down from 0.3 on admission. White blood cell count 23, hemoglobin 13, platelets 400,000. Urinalysis, no blood or nitrites. Pleural fluid analysis sh owed 600 white cells, 97% neutrophils. Blood culture is negative 24 hours. Pneumococcal antigen and Legionella antigen is negative. Please see impressions and recommendations outlined above, which I have discussed with Dr. Ricks. Thanks for asking me to see Mr. Vasquez in consultation. [id number]/[facility] #: [id number]
[2017-02-14] MEDS: Albuterol/Ipratropium NEB.SOL* Albuterol 2.5 MG/Ipratropium 0.5 MG 3 ML INH SCH ×6 (00:27→19:48)
[2017-02-14] MEDS: fentaNYL* 50 MCG/ML 2 ML VIAL (100 MCG VIAL) IV SLOW PU PRN ×6 (00:59→20:39)
[2017-02-14] MEDS: Clindamycin 600 MG IVPREMIX(* 600 MG/50 ML SDV IV SCH ×3 (01:02→17:15)
--- NOTE | 2017-02-14 02:56 | OP ---
CC: Dr. Crocker * DATE OF OPERATION: 02/12/17 - ROOM #351 DATE OF : 47 SURGEON: Royer Cordova MD ANESTHESIA: 1% lidocaine plain, local. PRE-OP DIAGNOSIS: Loculated left pleural effusion. POST-OP DIAGNOSIS: Loculated left pleural effusion. OPERATIVE PROCEDURE: Left tube thoracostomy. ESTIMATED BLOOD LOSS: 10 mL. SPECIMEN: Pleural fluid. DRAIN: 28-Iranian chest tube. COMPLICATIONS: None. INDICATION: This 72-year-old gentleman with a history of smoking with recent cough and progressive shortness of breath, which led to emergency room evaluation and findings of a loculated left pleural effusion on CT scan. Hospitalist admitted the patient and requested chest tube placement. The nature of the procedure, indication, risks, benefits and alternatives were discussed with the patient and as well as the option of treatment. The patient had an opportunity to ask questions and all questions were answered. Risks were explained including not to limited to bleeding, infection, pain, scarring, tube malfunction, or dislodgement and line injury. The patient also understands that if the tube thoracostomy is not successful, additional procedures including surgery may be needed. He did agree to proceed. DESCRIPTION OF PROCEDURE: The patient was positioned semi-Crouch on the ICU bed. The left chest was prepped and draped in usual sterile fashion. A time-out was formed. Local anesthetic was infiltrated at the 6th or 7th interspace and then a 2 inch incision was created. Due to the patient's obesity, a large Deisi clamp was used to enter the pleural cavity at which point serosanguineous clear fluid was returned. A finger was placed within the wound and subsequently , a 28-Iranian chest tube placed posteriorly and superiorly. The tube had been cut with additional side holes, the last at 8 cm. The tube was secured to the chest wall with the Velcro tape and 0 silk sutures at 2 points. The tube was connected to Pleur-evac. There was approximately 300 to 400 mL fluid that drained into the patient's bed prior to the tube being placed. Xeroform dressings and 4 x 4 gauze with tape were applied. There was no evidence of air leak and the patient tolerated the procedure well. [id number]/[facility] #: [id number] [facility]
[2017-02-14] MEDS: Ondansetron INJ* 2 MG/ML VIAL IV PRN ×5 (03:30→17:14)
[2017-02-14] MEDS: NS 0.9% 1000 ML* 1,000 ML IV SCH ×3 (04:16→23:20)
[2017-02-14] MEDS: Heparin VIAL(*) 5000 UNITS/ML VIAL (FIVE THOUSAND) SUBCUT SCH ×3 (05:48→21:36)
[2017-02-14 06:30] LABS: Hematocrit 34 % (42-52); Mean Corpuscular HGB Conc 33 g/dl (31-36); Mean Corpuscular Hemoglobin 28 pg (27-31); Mean Corpuscular Volume 86 fL (80-94); Mean Platelet Volume 7 um3 (7.4-10.4); Red Blood Count 3.95 10^6/ul (4.0-5.4); Red Cell Distribution Width 15 % (10.5-15)
[2017-02-14] MEDS: Insulin LISPRO* 1 UNITS UNIT SUBCUT SCH ×4 (07:42→21:35)
--- NOTE | 2017-02-14 08:04 | RAD ---
HISTORY: Pneumonia, empyema COMPARISONS: February 13, 2017 VIEWS:1: Single frontal portable view of the chest at 6:20 AM FINDINGS: LINES AND TUBES: A right-sided PICC line is noted with the tip overlying the cavoatrial junction. A left-sided chest tube is noted. CARDIOMEDIASTINAL SILHOUETTE: The cardiomediastinal silhouette is stable. PLEURA: There is small left pleural effusion, somewhat decreased from the previous examination. LUNG PARENCHYMA: There is persistent patchy alveolar opacification of the left mid and lower lung pascal ABDOMEN: The upper abdomen is clear. There is no subphrenic gas. BONES AND SOFT TISSUES: No bone or soft tissue abnormalities are noted. IMPRESSION: 1. LINES AND TUBES ABOVE. 2. SMALL LEFT PLEURAL EFFUSION. 3. PERSISTENT ATELECTASIS VERSUS CONSOLIDATION OF THE LEFT MID AND LOWER LUNG
--- NOTE | 2017-02-14 09:01 | RAD ---
HISTORY: Follow-up loculated pleural effusion COMPARISONS: February 12, 2017 TECHNIQUE: Multiple contiguous axial CT scans of the chest were obtained without intravenous contrast. Coronal and sagittal multiplanar reformations are also submitted for review. FINDINGS: The study is limited by the lack of intravenous contrast. This limits evaluation of the solid organs and vasculature. NECK AND THYROID: The lower neck and thyroid are unremarkable. CHEST WALL: There is no lower cervical, axillary, or supraclavicular lymphadenopathy by size criteria. HEART AND PERICARDIUM: The heart is unremarkable. AORTA AND PULMONARY VASCULATURE: There is calcification of the thoracic aorta. The pulmonary vasculature is unremarkable. MEDIASTINUM: There is no mediastinal lymphadenopathy by size criteria. CHIRAG: There is no hilar lymphadenopathy by size criteria. AIRWAY AND ESOPHAGUS: The airway is unremarkable, without endobronchial filling defect. The esophagus is grossly normal. LUNG PARENCHYMA: There is compressive atelectasis of the left lower lobe PLEURA: Again noted is a loculated pleural effusion, including along the mediastinal pleura. This is decreased in size compared to the February 12, 2017 examination. There has been interval placement of left-sided chest tube. There is trace right pleural effusion. UPPER ABDOMEN: The upper abdomen is unremarkable. BONES AND SOFT TISSUES: Degenerative changes are noted of the spine OTHER: A right-sided PICC line is noted. The tip is at the cavoatrial junction. IMPRESSION: 1. PERSISTENT BUT DECREASING LOCULATED LEFT PLEURAL EFFUSION. 2. PERSISTENT BUT DECREASING LEFT BASILAR COMPRESSIVE ATELECTASIS
[2017-02-14] MEDS: Magnesium Oxide TAB* 400 MG PO SCH (09:55)
[2017-02-14] MEDS: Docusate CAP* 100 MG PO SCH ×2 (09:55→21:06)
[2017-02-14] MEDS: Atorvastatin* 10 MG TAB PO SCH (09:55)
[2017-02-14] MEDS: Pramipexole TAB* 0.125 MG PO SCH ×2 (09:55→21:06)
[2017-02-14] MEDS: Aspirin TAB* 325 MG PO SCH (09:55)
--- NOTE | 2017-02-14 10:14 | PN ---
Progress Note - Progress Note Date of Service: 02/14/17 SOAP: Subjective: Complaining of generalized pain No SOB Still with productive cough Objective: Temp Pulse Resp BP Pulse Ox 97.1 F 68 18 196/80 97 02/14/17 07:42 02/14/17 09:32 02/14/17 09:32 02/14/17 09:03 02/14/17 09:32 Intake & Output 02/12/17 02/13/17 02/14/17 02/15/17 06:59 06:59 06:59 06:59 Intake Total 1170 1837.1 Output Total 1474 315 Balance -304 1522.1 Weight 351 lb 8 oz 352 lb 11.834 oz Intake: IV Fluids 400 72.1 NS 72.1 IVPB 225 NS 225 Oral 770 1540 Output: Chest Tube #1 224 15 Urine 1250 300 PEX: Comfortable Left chest tube in good position Decreased breath sounds at left base Pleurovac with minimal yellow serous fluid drainage-no air leak CT and CXR reviewed--decrease in amount of left chest fluid with continues atelectasis and probable loculated posterior fluid, remote from chest tube position. Pleural fluid cultures with no growth so far. Assessment: Left pleural effusion s/p left chest tube insertion--minimal output, etiology not clear. CT as above Plan: Continue IV anbx and chest tube drainage Pulmonary toilet Will defer to Dr. Le if lytic therapy indicated, also reviewed with Dr. Ricks and he felt best to continue present care. ?? separate image guided drainage of posterior collection--chest tube does not appear to be in this location.
[2017-02-14] MEDS ORDERED: cloNIDine TAB* 0.1 MG PO SCH (11:00)
[2017-02-14] MEDS ORDERED: Promethazine INJ(RESTRICTED)* 25 MG/ML 1 ML VIAL IM PRN (11:20)
[2017-02-14] MEDS ORDERED: cloNIDine 0.1 MG PATCH* 0.1 MG/24 HR 7 DAY PATCH TRANSDERM SCH (12:00)
[2017-02-14] MEDS: Famotidine IV* 10 MG/ML 2 ML (20 mg) IV SCH (14:11)
[2017-02-14] MEDS ORDERED: LORazepam INJ* 2 MG/ML 1 ML VIAL IV PUSH PRN (14:15)
[2017-02-14 15:11] LABS: BUN/Creatinine Ratio 33.8 (8-20); Calcium 7.4 mg/dL (8.6-10.3); EGFR African American 147.8 (>60); Potassium 3.8 mmol/L (3.5-5.0)
[2017-02-14] MEDS: LORazepam INJ* 2 MG/ML 1 ML VIAL IV PUSH PRN ×2 (17:14→21:36)
[2017-02-14 17:57] LABS: Total Protein, BF 4.7 g/dL
--- NOTE | 2017-02-14 18:24 | PN ---
Critical Care Services: Patient continues with nausea and vomiting refractory to usual antiemetic Rx. However, diaphoresis has subsided. Chest tube drained only 100 cc overnight, and repeat CT scan shows posterior collection of fluid beyond reach of chest tube. Left lung partially re-expanded. Vital Signs: Temp Pulse Resp BP SpO2 FiO2 98.4 F 69 26 181/79 98 Physical Exam: Gen:Anxious Lungs: mild wheezing (expiratory) bilaterally. Chest tube in left hemithorax. Cardiac: No murmurs. Abdomen: Extremities: No cyanosis or edema. No diaphoresis Fluid Balance (Past 24 Hours): 02/14/17 06:59 Intake Total 1837.1 Output Total 315 Balance +1522.1 Weight 352 lb Intake: IV Fluids 72.1 NS 72.1 IVPB 225 NS 225 Oral 1540 Output: Chest Tube #1 15 Urine 300 Emesis Other: Date of Last Bowel Movement # Voids Labs: Laboratory Results - last 24 hr 02/14/17 02/14/17 05:45 07:22 WBC 14.0 H RBC 3.95 L Hgb 11.0 L Hct 34 L MCV 86 MCH 28 MCHC 33 RDW 15 Plt Count 438 POC Glucose (mg/dL) 242 H 02/14/17 02/14/17 14:40 16:43 Sodium 137 Potassium 3.8 Chloride 107 Carbon Dioxide 26 BUN 23 Creatinine 0.68 Glucose 148 POC Glucose (mg/dL) 181 Studies: CT of chest: results as mentioned above. Nutrition: Oral diet Impression: 1. Loculated parapneumonic effusion - no pathogen isolated, and no signs of progressive sepsis. Also, not much fluid has been drained over past 24 hrs. 2. Probable opioid withdrawal as a cause of nausea, vomiting, and diaphoresis. Plan: 1. Consider lytic Rx vs second chest tube for further drainage of the loculated effusion. 2. ? D/C current chest tube 3. Use low dose opioids to alleviate opioid withdrawal. Critical Care Time: 45 minutes.
[2017-02-14] MEDS ORDERED: cloNIDine 0.2 MG PATCH* 0.2 MG/24 HR 7 DAY PATCH TRANSDERM SCH (23:00)
[2017-02-15] MEDS: Albuterol/Ipratropium NEB.SOL* Albuterol 2.5 MG/Ipratropium 0.5 MG 3 ML INH SCH ×6 (00:17→20:17)
[2017-02-15] MEDS: LORazepam INJ* 2 MG/ML 1 ML VIAL IV PUSH PRN ×4 (00:36→20:56)
[2017-02-15] MEDS: Clindamycin 600 MG IVPREMIX(* 600 MG/50 ML SDV IV SCH ×3 (01:39→18:46)
[2017-02-15] MEDS: fentaNYL* 50 MCG/ML 2 ML VIAL (100 MCG VIAL) IV SLOW PU PRN ×5 (02:03→23:39)
[2017-02-15] MEDS: Ondansetron INJ* 2 MG/ML VIAL IV PRN ×4 (03:16→19:04)
[2017-02-15] MEDS: Heparin VIAL(*) 5000 UNITS/ML VIAL (FIVE THOUSAND) SUBCUT SCH ×3 (05:34→22:19)
[2017-02-15 05:55] LABS: Hematocrit 34 % (42-52); Mean Corpuscular HGB Conc 33 g/dl (31-36); Mean Corpuscular Hemoglobin 28 pg (27-31); Mean Corpuscular Volume 86 fL (80-94); Mean Platelet Volume 7 um3 (7.4-10.4); Red Cell Distribution Width 15 % (10.5-15); White Blood Count 13.2 10^3/ul (3.5-10.8)
[2017-02-15 06:14] LABS: BUN/Creatinine Ratio 30.9 (8-20); Calcium 8.5 mg/dL (8.6-10.3); EGFR African American 120.8 (>60); EGFR Non-African American 93.9 (>60); Potassium 4.4 mmol/L (3.5-5.0)
[2017-02-15] MEDS: NS 0.9% 1000 ML* 1,000 ML IV SCH (08:13)
[2017-02-15] MEDS: Insulin LISPRO* 1 UNITS UNIT SUBCUT SCH ×4 (08:51→20:57)
[2017-02-15] MEDS: Atorvastatin* 10 MG TAB PO SCH (09:20)
[2017-02-15] MEDS: Magnesium Oxide TAB* 400 MG PO SCH (09:20)
[2017-02-15] MEDS: Pramipexole TAB* 0.125 MG PO SCH ×2 (09:20→20:56)
[2017-02-15] MEDS: Docusate CAP* 100 MG PO SCH ×2 (09:20→20:56)
[2017-02-15] MEDS: Aspirin TAB* 325 MG PO SCH (09:20)
[2017-02-15] MEDS ORDERED: CMC:Methylnaltrexone SQ (NF) 12 MG/0.6 ML VIAL SUBCUT ONE (09:30)
--- NOTE | 2017-02-15 09:41 | PN ---
Critical Care Services: Had an uneventful evening but still complains of nausea - did have one episode of vomiting around 3:00AM - otherwise doing OK - chest tube only drained 85cc over last 48 hrs, and all cultures (pleural fluid, blood, sputum) are negative. No BM since admission. Vital Signs: Temp Pulse Resp BP SpO2 FiO2 98.6 F 74 26 182/90 91 Physical Exam: Gen: Seems uncomfortable, although denies pain. Lungs:Coarse rhonchi. No crackles or wheezes. Abdomen: ? abdominal distention. No bowel sounds. No tenderness Extremities: No cyanosis. 1+edema LEs Fluid Balance (Past 24 Hours): 02/15/17 06:59 Intake Total 3704 Output Total ? Balance ? Weight 349 lb Intake: IV Fluids 2717 NS 2717 IVPB 287 NS 287 Oral 700 Output: Chest Tube #1 70 Urine 200 Emesis 400 Other: Date of Last Bowel 02/09/17 Movement # Voids 0 NOTE: Patient had 2 episodes of urinary incontinence and urine volume was not measurable. Labs: 02/15/17 05:40 Sodium 136 Potassium 4.4 Chloride 103 Carbon Dioxide 28 Anion Gap 5 BUN 25 H Creatinine 0.81 Glucose 162 H Calcium 8.5 L 02/15/17 02/15/17 05:40 08:27 WBC 13.2 Hgb 11.0 L Hct 34 L RDW 15 Plt Count 425 POC Glucose (mg/dL) 163 H NOTE: Leukocytosis is resolving. Studies: None today Nutrition: Oral diet (intake poor). Impression: 1. Chest tube draininge minimal, but there remains a significant pleural effusion (loculated). Options at this point are a) intrapleural thrombolytic agent, b) second chest tube, or c) remove chest tube and do nothing further ( since fluid is not infected) 2. No evidence for a treatable infection in the chest. 2. Patient may have opioid-associated bowel hypomotility (or ileus) as a cause of intractable nausea and vomiting. Patient is also 'histrionic", and this is certainly adding to his symptomatology. Plan: 1. Discuss options regarding the pleural effusion with surgery. 2. Bronchoscopy will be important in this case. 3. I will try methylnaltrexone (a GI-specific opioid antagonist) to promote bowel motility. 4. Will also cut back on opoiod administration.
[2017-02-15] MEDS: Al Hydrox/Mg Hydrox/Simet LIQ* 30 ML UDC PO PRN ×2 (10:12→23:44)
--- NOTE | 2017-02-15 10:58 | PN ---
Progress Note - Progress Note Date of Service: 02/15/17 SOAP: Subjective: No SOB Without complaint Objective: Temp Pulse Resp BP Pulse Ox 98.6 F 80 25 182/95 93 02/15/17 08:00 02/15/17 10:30 02/15/17 10:30 02/15/17 10:30 02/15/17 10:30 Chest tube output about 100cc/24 hours No leak Assessment: Left pleural effusion s/p chest tube insertion Cultures of fluid negative so far. Plan: Continue chest tube Will discuss with Pulm/Thoracic regarding lytics? Percutaneous drainage ? Tube removal? tomorrow Discussed with Dr. Ricks and pt's daughter.
[2017-02-15] MEDS: Famotidine IV* 10 MG/ML 2 ML (20 mg) IV SCH (15:59)
[2017-02-16] MEDS: Albuterol/Ipratropium NEB.SOL* Albuterol 2.5 MG/Ipratropium 0.5 MG 3 ML INH SCH ×5 (00:18→20:22)
[2017-02-16] MEDS: Clindamycin 600 MG IVPREMIX(* 600 MG/50 ML SDV IV SCH ×3 (00:38→17:11)
[2017-02-16] MEDS: fentaNYL* 50 MCG/ML 2 ML VIAL (100 MCG VIAL) IV SLOW PU PRN ×3 (04:22→12:33)
[2017-02-16] MEDS: NS 0.9% 1000 ML* 1,000 ML IV SCH ×2 (04:24→14:31)
[2017-02-16] MEDS: Al Hydrox/Mg Hydrox/Simet LIQ* 30 ML UDC PO PRN (04:57)
[2017-02-16] MEDS: LORazepam INJ* 2 MG/ML 1 ML VIAL IV PUSH PRN ×2 (05:12→08:37)
[2017-02-16] MEDS: Heparin VIAL(*) 5000 UNITS/ML VIAL (FIVE THOUSAND) SUBCUT SCH ×3 (05:12→22:31)
[2017-02-16 05:13] LABS: Hematocrit 34 % (42-52); Mean Corpuscular HGB Conc 33 g/dl (31-36); Mean Corpuscular Hemoglobin 28 pg (27-31); Mean Corpuscular Volume 85 fL (80-94); Mean Platelet Volume 7 um3 (7.4-10.4); Red Blood Count 3.93 10^6/ul (4.0-5.4); Red Cell Distribution Width 15 % (10.5-15)
[2017-02-16] MEDS: Ondansetron INJ* 2 MG/ML VIAL IV PRN (08:35)
[2017-02-16] MEDS: Insulin LISPRO* 1 UNITS UNIT SUBCUT SCH ×4 (08:39→22:28)
[2017-02-16] MEDS: Magnesium Oxide TAB* 400 MG PO SCH (08:40)
[2017-02-16] MEDS: Atorvastatin* 10 MG TAB PO SCH (08:41)
[2017-02-16] MEDS: Aspirin TAB* 325 MG PO SCH (08:41)
[2017-02-16] MEDS: Docusate CAP* 100 MG PO SCH (08:41)
[2017-02-16] MEDS: Pramipexole TAB* 0.125 MG PO SCH ×2 (08:43→22:30)
[2017-02-16] MEDS: Famotidine IV* 10 MG/ML 2 ML (20 mg) IV SCH (14:31)
--- NOTE | 2017-02-16 15:17 | PN ---
Progress Note - Progress Note Date of Service: 02/16/17 Note: C/O weakness, denies pain. Appetite decreased. No nausea.
--- NOTE | 2017-02-16 15:23 | PN ---
Subjective Date of Service: 02/16/17 Interval History: C/O weakness, denies pain. Appetite decreased. No nausea. Objective Active Medications: Al Hydrox/Mg Hydrox/Simethicone (Maalox Plus*) 30 ml PO Q4H PRN PRN Reason: HEARTBURN Last Admin: 02/16/17 04:57 Dose: 30 ml Albuterol/Ipratropium (Duoneb (Albuterol 2.5 Mg/Ipratropium 0.5 Mg)) 1 neb INH Q6H PRN PRN Reason: sob/wheexing Albuterol/Ipratropium (Duoneb (Albuterol 2.5 Mg/Ipratropium 0.5 Mg)) 1 neb INH [id number] AWAKE [facility] Last Admin: 02/16/17 13:12 Dose: 1 neb Aspirin (Aspirin Tab*) 325 mg PO DAILY [facility] Last Admin: 02/16/17 08:41 Dose: 325 mg Atorvastatin Calcium (Lipitor*) 10 mg PO DAILY [facility] Last Admin: 02/16/17 08:41 Dose: 10 mg Clonidine HCl ([id number]-Rer-1 0.1 Mg Patch*) 0.1 mg TRANSDERM Q7D [facility] Dextrose (D50w Syringe 50 Ml*) 12.5 gm IV PUSH .FOR FS < 60 - SS PRN PRN Reason: FS < 60 Fentanyl Citrate (Fentanyl*) 25 mcg IV SLOW PU Q4H PRN PRN Reason: PAIN Last Admin: 02/16/17 12:33 Dose: 25 mcg Heparin Sodium (Porcine) (Heparin Vial(*)) 5,000 units SUBCUT Q8HR [facility] Last Admin: 02/16/17 14:31 Dose: 5,000 units Heparin Sodium (Porcine) (Heparin Flush Picc/Ml/Cvc(*)) 0 ml FLUSH 0600,1800 [facility] Last Admin: 02/16/17 04:31 Dose: 1 ml Ceftriaxone Sodium 2 gm/ (Sodium Chloride) 100 mls @ 200 mls/hr IVPB Q24H [facility] Last Admin: 02/15/17 20:57 Dose: 200 mls/hr Clindamycin HCl/Dextrose (Cleocin 600 Mg Ivpremix(*) Sdv) 600 mg in 50 mls @ 100 mls/hr IV Q8H [facility] Last Admin: 02/16/17 08:43 Dose: 100 mls/hr Sodium Chloride (Ns 0.9% 1000 Ml*) 1,000 mls @ 40 mls/hr IV PER RATE [facility] Insulin Human Lispro (Humalog*) 0 units SUBCUT ACHS [facility] PRN Reason: Protocol Last Admin: 02/16/17 12:33 Dose: 2 units Lisinopril (Prinivil Tab*) 10 mg PO DAILY [facility] Magnesium Oxide (Magox 400 Tab*) 800 mg PO DAILY [facility] Last Admin: 02/16/17 08:40 Dose: 800 mg Ondansetron HCl (Zofran Inj*) 4 mg IV Q2H PRN PRN Reason: NAUSEA Last Admin: 02/16/17 08:35 Dose: 4 mg Pramipexole Dihydrochloride (Mirapex Tab*) 0.125 mg PO BID [facility] Last Admin: 02/16/17 08:43 Dose: 0.125 mg Promethazine HCl (Phenergan Inj(Restricted)*) 25 mg IM Q6H PRN PRN Reason: NAUSEA/VOMITING Last Admin: 02/14/17 11:41 Dose: 25 mg Vital Signs 02/15/17 02/15/17 02/15/17 16:40 18:46 20:00 Temperature Pulse Rate 68 73 Respiratory 16 22 Rate Blood Pressure (mmHg) O2 Sat by Pulse 94 98 Oximetry 02/15/17 02/15/17 02/15/17 20:15 20:45 20:56 Temperature 98.4 F Pulse Rate 76 Respiratory 20 20 18 Rate Blood Pressure 170/73 (mmHg) O2 Sat by Pulse 95 Oximetry 02/15/17 02/15/17 02/15/17 21:56 23:22 23:39 Temperature 98.3 F Pulse Rate 74 Respiratory 20 20 22 Rate Blood Pressure 160/68 (mmHg) O2 Sat by Pulse 92 Oximetry 02/16/17 02/16/17 02/16/17 00:39 03:26 04:22 Temperature 97.6 F Pulse Rate 77 Respiratory 20 26 18 Rate Blood Pressure 157/69 (mmHg) O2 Sat by Pulse 97 Oximetry 02/16/17 02/16/17 02/16/17 04:25 05:12 05:22 Temperature Pulse Rate 70 Respiratory 20 24 18 Rate Blood Pressure (mmHg) O2 Sat by Pulse 97 Oximetry 02/16/17 02/16/17 02/16/17 06:12 07:27 07:37 Temperature 99.1 F Pulse Rate 80 72 Respiratory 22 16 16 Rate Blood Pressure 198/68 (mmHg) O2 Sat by Pulse 97 95 Oximetry 02/16/17 02/16/17 02/16/17 08:00 08:32 08:37 Temperature Pulse Rate Respiratory 22 22 22 Rate Blood Pressure (mmHg) O2 Sat by Pulse Oximetry 02/16/17 02/16/17 02/16/17 09:30 12:33 13:27 Temperature Pulse Rate 75 Respiratory 20 20 17 Rate Blood Pressure (mmHg) O2 Sat by Pulse 97 Oximetry 02/16/17 13:31 Temperature Pulse Rate Respiratory 20 Rate Blood Pressure (mmHg) O2 Sat by Pulse Oximetry Oxygen Devices in Use Now: CPAP/BiPAP Appearance: Alert, supine in bed, his own nasal CPAP in place. Appears weak. Neutral affect. Looks comfortable. Neck: NL Appearance and Movements; NL JVP, No Thyroid Enlargement, Masses Respiratory: Symmetrical Chest Expansion and Respiratory Effort, Clear to Auscultation, Clear to Percussion Cardiovascular: NL Sounds; No Murmurs; No JVD, RRR, No Edema, - Extremities: No Edema, No Clubbing, Cyanosis, - Skin: No Rash or Ulcers, No Nodules or Sclerosis, - Neurological: Alert and Oriented x 3, NL Sensation - Somewhat lethargic. No tremor. Oriented. Result Diagrams: 02/16/17 04:37 02/15/17 05:40 Additional Lab and Data: Lab Results 02/12/17 02/12/17 02/12/17 Range/Units 13:10 13:10 13:10 WBC 19.8 H (3.5-10.8) 10^3/ul RBC 4.35 (4.0-5.4) 10^6/ul Hgb 12.2 L (14.0-18.0) g/dl Hct 37 L (42-52) % MCV 85 (80-94) fL MCH 28 (27-31) pg MCHC 33 (31-36) g/dl RDW 15 (10.5-15) % Plt Count 531 H (150-450) 10^3/ul MPV 8 (7.4-10.4) um3 Neut % (Auto) 86.2 H (38-83) % Lymph % (Auto) 5.1 L (25-47) % [place] % (Auto) 7.3 (1-9) % Eos % (Auto) 0.3 (0-6) % Baso % (Auto) 1.1 (0-2) % Absolute Neuts (auto) 17.1 H (1.5-7.7) 10^3/ul Absolute Lymphs (auto) 1.0 (1.0-4.8) 10^3/ul Absolute Monos (auto) 1.4 H (0-0.8) 10^3/ul Absolute Eos (auto) 0.1 (0-0.6) 10^3/ul Absolute Basos (auto) 0.2 (0-0.2) 10^3/ul Absolute Nucleated RBC 0.01 10^3/ul Nucleated RBC % 0 INR (Anticoag Therapy) 1.19 H (0.89-1.11) APTT 26.8 (26.0-36.3) seconds D-Dimer, Quantitative > 1050 H (Less Than 230) ng/mL Sodium 132 L (133-145) mmol/L Potassium 4.5 (3.5-5.0) mmol/L Chloride 97 L (101-111) mmol/L Carbon Dioxide 25 (22-32) mmol/L Anion Gap 10 (2-11) mmol/L BUN 59 H (6-24) mg/dL Creatinine 1.86 H (0.67-1.17) mg/dL Est GFR ( Amer) 46.3 (>60) Est GFR (Non-Af Amer) 36.0 (>60) BUN/Creatinine Ratio 31.7 H (8-20) Glucose 163 H (70-100) mg/dL Lactic Acid (0.5-2.0) mmol/L Calcium 9.5 (8.6-10.3) mg/dL Magnesium 2.9 H (1.9-2.7) mg/dL Total Bilirubin 0.50 (0.2-1.0) mg/dL AST 20 (13-39) U/L ALT 26 (7-52) U/L Alkaline Phosphatase 93 (34-104) U/L Total Creatine Kinase 107 (10-223) U/L CK-MB (CK-2) 8.5 H (0.6-6.3) ng/mL Troponin I 0.34 H* (<0.04) ng/mL C-Reactive Protein 459.29 H (< 5.00) mg/L B-Natriuretic Peptide ( - 100) pg/mL Total Protein 7.6 (6.4-8.9) g/dL Albumin 3.3 (3.2-5.2) g/dL Globulin 4.3 H (2-4) g/dL Albumin/Globulin Ratio 0.8 L (1-3) Lipase < 10 L (11.0-82.0) U/L TSH 0.69 (0.34-5.60) mcIU/mL Urine Color Urine Appearance Urine pH (5-9) Ur Specific [place] (1.010-1.030) Urine Protein (Negative) Urine Ketones (Negative) Urine Blood (Negative) Urine Nitrate (Negative) Urine Bilirubin (Negative) Urine Urobilinogen (Negative) Ur Leukocyte Esterase (Negative) Urine WBC (Auto) (Absent) Urine RBC (Auto) (Absent) Ur Squamous Epith Cells (Absent) Urine Bacteria (Absent) Urine Glucose (Negative) 02/12/17 02/12/17 02/12/17 Range/Units 13:10 13:10 14:00 WBC (3.5-10.8) 10^3/ul RBC (4.0-5.4) 10^6/ul Hgb (14.0-18.0) g/dl Hct (42-52) % MCV (80-94) fL MCH (27-31) pg MCHC (31-36) g/dl RDW (10.5-15) % Plt Count (150-450) 10^3/ul MPV (7.4-10.4) um3 Neut % (Auto) (38-83) % Lymph % (Auto) (25-47) % [place] % (Auto) (1-9) % Eos % (Auto) (0-6) % Baso % (Auto) (0-2) % Absolute Neuts (auto) (1.5-7.7) 10^3/ul Absolute Lymphs (auto) (1.0-4.8) 10^3/ul Absolute Monos (auto) (0-0.8) 10^3/ul Absolute Eos (auto) (0-0.6) 10^3/ul Absolute Basos (auto) (0-0.2) 10^3/ul Absolute Nucleated RBC 10^3/ul Nucleated RBC % INR (Anticoag Therapy) (0.89-1.11) APTT (26.0-36.3) seconds D-Dimer, Quantitative (Less Than 230) ng/mL Sodium (133-145) mmol/L Potassium (3.5-5.0) mmol/L Chloride (101-111) mmol/L Carbon Dioxide (22-32) mmol/L Anion Gap (2-11) mmol/L BUN (6-24) mg/dL Creatinine (0.67-1.17) mg/dL Est GFR ( Amer) (>60) Est GFR (Non-Af Amer) (>60) BUN/Creatinine Ratio (8-20) Glucose (70-100) mg/dL Lactic Acid 1.2 (0.5-2.0) mmol/L Calcium (8.6-10.3) mg/dL Magnesium (1.9-2.7) mg/dL Total Bilirubin (0.2-1.0) mg/dL AST (13-39) U/L ALT (7-52) U/L Alkaline Phosphatase (34-104) U/L Total Creatine Kinase (10-223) U/L CK-MB (CK-2) (0.6-6.3) ng/mL Troponin I (<0.04) ng/mL C-Reactive Protein (< 5.00) mg/L B-Natriuretic Peptide 412 H ( - 100) pg/mL Total Protein (6.4-8.9) g/dL Albumin (3.2-5.2) g/dL Globulin (2-4) g/dL Albumin/Globulin Ratio (1-3) Lipase (11.0-82.0) U/L TSH (0.34-5.60) mcIU/mL Urine Color Yellow Urine Appearance Clear Urine pH 5.0 (5-9) Ur Specific [place] 1.017 (1.010-1.030) Urine Protein 1+(30 mg/dl) H (Negative) Urine Ketones Negative (Negative) Urine Blood Negative (Negative) Urine Nitrate Negative (Negative) Urine Bilirubin Negative (Negative) Urine Urobilinogen Negative (Negative) Ur Leukocyte Esterase Negative (Negative) Urine WBC (Auto) Trace(0-5/hpf) (Absent) Urine RBC (Auto) Trace(0-2/hpf) (Absent) Ur Squamous Epith Cells Present H (Absent) Urine Bacteria Absent (Absent) Urine Glucose Negative (Negative) Microbiology and Other Data: Microbiology 02/12/17 14:44 Aerobic Blood Culture - Preliminary Blood Venous No Growth Day 4 Anaerobic Blood Culture - Preliminary No Growth Day 4 Blood Culture - Final 02/12/17 18:00 Gram Stain - Final Pleural Fluid Body Fluid Culture - Preliminary No Growth Day 3 02/13/17 08:11 Aerobic Blood Culture - Preliminary Blood Venous No Growth Day 3 Anaerobic Blood Culture - Preliminary No Growth Day 3 Blood Culture - Final 02/13/17 08:02 Aerobic Blood Culture - Preliminary Blood Venous No Growth Day 3 Anaerobic Blood Culture - Preliminary No Growth Day 3 Blood Culture - Final 02/12/17 20:13 Gram Stain - Final Sputum Sputum Culture - Final Normal Tita 02/12/17 15:30 Nasal Screen MRSA (PCR)(AMAYA) - Final Nasal Mrsa Negative 02/12/17 16:59 Legionella Urinary Antigen - Final Urine Negative Legionella Streptococcus pneumoniae Ag Screen - Final Negative S. pneumo Antigen Assess/Plan/Problems-Billing Assessment: - Patient Problems (1) Pleural effusion Current Visit: Yes Status: Acute Code(s): J90 - PLEURAL EFFUSION, NOT ELSEWHERE CLASSIFIED SNOMED Code(s): 64413833 Comment: Neg cytology, only 595 WBC's. Note CRP >400. C&S neg. Continue ceftriaxone and clindamycin. ID and pulmonology consults pending. Message left for Dr. Cordova to call me back regarding management of pleural effusion. (2) Diabetes Current Visit: Yes Status: Acute Code(s): E11.9 - TYPE 2 DIABETES MELLITUS WITHOUT COMPLICATIONS SNOMED Code(s): 90425617 Comment: Continue to hold metformin. FS mostly under 200 with small amounts of Lispro coverage. Add Lantus 15 U daily, increase coverage schedule. (3) HTN (hypertension) Current Visit: Yes Status: Acute Code(s): I10 - ESSENTIAL (PRIMARY) HYPERTENSION SNOMED Code(s): 41042101 Comment: Resume lisinopril, taper off clonidine patch. The latter could be sedating. (4) Morbid obesity Current Visit: Yes Status: Acute Code(s): E66.01 - MORBID (SEVERE) OBESITY DUE TO EXCESS CALORIES SNOMED Code(s): 144529424 Comment: BMI 48.7 (5) Chronic pain Current Visit: Yes Status: Acute Code(s): G89.29 - OTHER CHRONIC PAIN SNOMED Code(s): 33598413 Comment: Both patient and family expressed concern about over-use of opiates for his chronic pain. oxycodone/APAP 5/325 1 q 4 hr PRN ordered.
[2017-02-16] MEDS: Lisinopril TAB* 10 MG PO SCH (15:25)
[2017-02-16] MEDS ORDERED: cloNIDine 0.1 MG PATCH* 0.1 MG/24 HR 7 DAY PATCH TRANSDERM SCH (16:00)
--- NOTE | 2017-02-16 16:16 | PN ---
Progress Note - Progress Note Date of Service: 02/16/17 - pulm f/u note Note: Pt seen and examined at bedside. Pt reports episodes of nausea and feeling very tired and exhausted. He felt anxious last night and requested his son to stay with him. FiO2 requirements have improved. Active Medications Generic Name Dose Route Start Last Admin Trade Name Freq PRN Reason Stop Dose Admin Al Hydrox/Mg Hydrox/Simethicone 30 ml 02/13/17 12:07 02/16/17 04:57 Maalox Plus* PO 30 ml Q4H PRN Administration HEARTBURN Albuterol/Ipratropium 1 neb 02/12/17 14:47 Duoneb (Albuterol 2.5 Mg/Ipratropium 0.5 Mg) INH Q6H PRN sob/wheexing Albuterol/Ipratropium 1 neb 02/16/17 13:00 02/16/17 13:12 Duoneb (Albuterol 2.5 Mg/Ipratropium 0.5 Mg) INH 1 neb [id number] AWAKE [facility] Administration Aspirin 325 mg 02/13/17 09:00 02/16/17 08:41 Aspirin Tab* PO 325 mg DAILY [facility] Administration Atorvastatin Calcium 10 mg 02/13/17 09:00 02/16/17 08:41 Lipitor* PO 10 mg DAILY [facility] Administration Clonidine HCl 0.1 mg 02/16/17 16:00 [id number] 0.1 Mg Patch* TRANSDERM Q7D [facility] Dextrose 12.5 gm 02/12/17 15:28 D50w Syringe 50 Ml* IV PUSH .FOR FS < 60 - SS PRN FS < 60 Heparin Sodium (Porcine) 5,000 units 02/12/17 22:00 02/16/17 14:31 Heparin Vial(*) SUBCUT 5,000 units Q8HR [facility] Administration Heparin Sodium (Porcine) 0 ml 02/13/17 18:00 02/16/17 04:31 Heparin Flush Picc/Ml/Cvc(*) FLUSH 1 ml 0600,1800 [facility] Administration Ceftriaxone Sodium 2 gm/ 100 mls @ 200 mls/hr 02/13/17 21:00 02/15/17 20:57 Sodium Chloride IVPB 200 mls/hr Q24H [facility] Administration Clindamycin HCl/Dextrose 600 mg in 50 mls @ 100 mls/hr 02/13/17 17:00 08:43 Cleocin 600 Mg Ivpremix(*) Sdv IV 100 mls/hr Q8H [facility] Administration Sodium Chloride 1,000 mls @ 40 mls/hr 02/16/17 15:10 Ns 0.9% 1000 Ml* IV PER RATE [facility] Insulin Glargine 15 units 02/16/17 16:00 Lantus(*) SUBCUT Q24H [facility] Insulin Human Lispro 0 units 02/16/17 15:22 Humalog* SUBCUT ACHS [facility] Protocol Lisinopril 10 mg 02/16/17 15:00 02/16/17 15:25 Prinivil Tab* PO 10 mg DAILY [facility] Administration Magnesium Oxide 800 mg 02/13/17 09:00 02/16/17 08:40 Magox 400 Tab* PO 800 mg DAILY [facility] Administration Ondansetron HCl 4 mg 02/13/17 10:51 02/16/17 08:35 Zofran Inj* IV 4 mg Q2H PRN Administration NAUSEA Oxycodone/Acetaminophen 1 tab 02/16/17 15:19 Percocet 5/325 Tab* PO Q4H PRN PAIN Pramipexole Dihydrochloride 0.125 mg 02/12/17 21:00 02/16/17 08:43 Mirapex Tab* PO 0.125 mg BID [facility] Administration Promethazine HCl 25 mg 02/14/17 11:20 02/14/17 11:41 Phenergan Inj(Restricted)* IM 25 mg Q6H PRN Administration NAUSEA/VOMITING Vital Signs Temp Pulse Resp BP Pulse Ox 99.1 F 75 20 198/68 97 02/16/17 07:37 02/16/17 13:27 02/16/17 13:31 02/16/17 07:37 02/16/17 13:27 O/E: Morbidly obese male in NAD, sitting up in recliner HEENT: PERRLA, No JVD, MP-4 Lungs: Diminished air entry at bases, wheeze + b/l CVS: S1, S2+ Abd: Obese, BS+ Ext: Trace edema Neuro: No focal defecits Laboratory Results - last 24 hr 02/15/17 02/15/17 02/16/17 17:42 20:45 04:37 WBC 14.0 H RBC 3.93 L Hgb 11.0 L Hct 34 L MCV 85 MCH 28 MCHC 33 RDW 15 Plt Count 392 MPV 7 L POC Glucose (mg/dL) 171 H 198 H 02/16/17 02/16/17 07:37 12:05 WBC RBC Hgb Hct MCV MCH MCHC RDW Plt Count MPV POC Glucose (mg/dL) [address] chest 02/14/17- Improvement in left effusion, no significant mediastinal shift , less atlectasis of left lung I/R: 72 y o morbidly obese m, former smoker with loculated lt effusion, leucocytosis, elevated CRP concerning for infectious etiology Pleural fluid cx negative, exudative effusion as per available criteria Cytology negative for malignancy, acute and chronic inflammation present On broad spectrum abx Rpt CT chest slight improvement in effusion still has loculated fluid VATS guided fibrinolysis would be helpful Awaiting sx f/u Will try tPA and darnase while awaiting definitive management Ordered 10mg tPA and 5 mg darnase to be administered into chest tube, chest tube clamped for 1 hr and open to drain to gravity Will start tomorrow, will discuss with Dr Olson who is back tomorrow D/W Dr Kelly
[2017-02-16] MEDS: oxyCODONE/Acetamin 5/325 MG* TAB PO PRN ×2 (16:49→22:29)
[2017-02-16] MEDS: Insulin GLARGINE(*) 1 UNITS UNIT SUBCUT SCH (17:11)
[2017-02-17] MEDS: Clindamycin 600 MG IVPREMIX(* 600 MG/50 ML SDV IV SCH ×3 (01:07→16:32)
[2017-02-17] MEDS: Albuterol/Ipratropium NEB.SOL* Albuterol 2.5 MG/Ipratropium 0.5 MG 3 ML INH SCH ×4 (01:28→19:55)
[2017-02-17] MEDS: oxyCODONE/Acetamin 5/325 MG* TAB PO PRN ×5 (03:00→23:11)
[2017-02-17] MEDS: Heparin VIAL(*) 5000 UNITS/ML VIAL (FIVE THOUSAND) SUBCUT SCH ×3 (06:03→21:05)
[2017-02-17] MEDS: NS 0.9% 1000 ML* 1,000 ML IV SCH (06:22)
[2017-02-17 06:44] LABS: Hematocrit 35 % (42-52); Hemoglobin 11.6 g/dl (14.0-18.0); Mean Corpuscular HGB Conc 33 g/dl (31-36); Mean Corpuscular Hemoglobin 28 pg (27-31); Mean Corpuscular Volume 86 fL (80-94); Mean Platelet Volume 7 um3 (7.4-10.4); Red Blood Count 4.13 10^6/ul (4.0-5.4); Red Cell Distribution Width 15 % (10.5-15); White Blood Count 17.1 10^3/ul (3.5-10.8)
[2017-02-17] MEDS: Lisinopril TAB* 10 MG PO SCH (08:14)
[2017-02-17] MEDS: Pramipexole TAB* 0.125 MG PO SCH ×2 (08:14→21:04)
[2017-02-17] MEDS: Magnesium Oxide TAB* 400 MG PO SCH (08:14)
[2017-02-17] MEDS: Aspirin TAB* 325 MG PO SCH (08:14)
[2017-02-17] MEDS: Atorvastatin* 10 MG TAB PO SCH (08:14)
--- NOTE | 2017-02-17 09:20 | PN ---
Progress Note - Progress Note Date of Service: 02/17/17 SOAP: Subjective:Loculated left pleural effusion reports increased coughing,feels weak [] Objective:morbidly obese male sitting in recliner lungs:decreased bs at bases,wheezes throughout Chest tube at 490ml,clear yellow drainage Vital Signs - 24 hr 02/16/17 02/16/17 02/16/17 09:30 12:33 13:27 Temperature Pulse Rate 75 Respiratory 20 20 17 Rate Blood Pressure (mmHg) O2 Sat by Pulse 97 Oximetry 02/16/17 02/16/17 02/16/17 13:31 15:51 16:49 Temperature 98.6 F Pulse Rate 76 Respiratory 20 22 20 Rate Blood Pressure 168/82 (mmHg) O2 Sat by Pulse 97 Oximetry 02/16/17 02/16/17 02/16/17 18:49 20:08 20:37 Temperature 98.4 F Pulse Rate 67 Respiratory 18 25 25 Rate Blood Pressure 159/60 (mmHg) O2 Sat by Pulse 97 Oximetry 02/16/17 02/16/17 02/16/17 21:00 22:29 23:40 Temperature 98.3 F Pulse Rate 73 Respiratory 24 24 20 Rate Blood Pressure 167/68 (mmHg) O2 Sat by Pulse 100 Oximetry 02/17/17 02/17/17 02/17/17 00:29 03:00 03:19 Temperature 98.4 F Pulse Rate 69 Respiratory 22 24 18 Rate Blood Pressure 158/66 (mmHg) O2 Sat by Pulse 95 Oximetry 02/17/17 02/17/17 02/17/17 05:00 08:00 08:15 Temperature Pulse Rate Respiratory 20 16 18 Rate Blood Pressure (mmHg) O2 Sat by Pulse Oximetry 02/17/17 02/17/17 08:20 08:32 Temperature 98.6 F Pulse Rate 70 71 Respiratory 20 16 Rate Blood Pressure 179/80 (mmHg) O2 Sat by Pulse 93 94 Oximetry [] Assessment:CT chest reviewed by Dr Olson this morning,agrees with fibrinolytics via chest tube bid for 2 days [] Plan:I met with ,his son Corona and his daughter and explained the instillation of the fibrinolytics bid for the next two days starting today and then repeat CT of chest morning to assess if VATS needed;they are in agreement with the plan. []
[2017-02-17] MEDS: Insulin LISPRO* 1 UNITS UNIT SUBCUT SCH ×4 (09:22→21:05)
[2017-02-17] MEDS: Alteplase (CATHFLO)* 10 MG in NS 0.9% 50 ML* 40 ML INTRAPLEUR SCH ×3 (10:30→23:01)
[2017-02-17] MEDS: DORNASE ALFA 1 mg/ml(NF) 5 MG in NS 0.9% 50 ML* 45 ML INTRAPLEUR SCH ×3 (10:30→23:01)
--- NOTE | 2017-02-17 11:44 | PN ---
Progress Note - Progress Note Date of Service: 02/17/17 Note: Surgery Progress: Dornase/Alteplase injected per chest tube per protocol w/ patient in lateral decubitus position. Well tolerated. Will leave clamped for 2 hrs and plan repeat this pm.
[2017-02-17] MEDS: Lisinopril TAB* 10 MG PO ONE ×2 (12:03→12:36)
--- NOTE | 2017-02-17 12:41 | PN ---
Subjective Date of Service: 02/17/17 Interval History: Feels a little better today. Some whole-body pain. Appetite fair. Occ cough. No new c/o. Objective Active Medications: Al Hydrox/Mg Hydrox/Simethicone (Maalox Plus*) 30 ml PO Q4H PRN PRN Reason: HEARTBURN Last Admin: 02/16/17 04:57 Dose: 30 ml Albuterol/Ipratropium (Duoneb (Albuterol 2.5 Mg/Ipratropium 0.5 Mg)) 1 neb INH Q6H PRN PRN Reason: sob/wheexing Albuterol/Ipratropium (Duoneb (Albuterol 2.5 Mg/Ipratropium 0.5 Mg)) 1 neb INH [id number] AWAKE [facility] Last Admin: 02/17/17 08:23 Dose: 1 neb Aspirin (Aspirin Tab*) 325 mg PO DAILY [facility] Last Admin: 02/17/17 08:14 Dose: 325 mg Atorvastatin Calcium (Lipitor*) 10 mg PO DAILY [facility] Last Admin: 02/17/17 08:14 Dose: 10 mg Clonidine HCl (Fkvdluod-Fmt-2 0.1 Mg Patch*) 0.1 mg TRANSDERM Q7D [facility] Last Admin: 02/16/17 16:49 Dose: 1 patch Dextrose (D50w Syringe 50 Ml*) 12.5 gm IV PUSH .FOR FS < 60 - SS PRN PRN Reason: FS < 60 Heparin Sodium (Porcine) (Heparin Vial(*)) 5,000 units SUBCUT Q8HR [facility] Last Admin: 02/17/17 06:03 Dose: 5,000 units Heparin Sodium (Porcine) (Heparin Flush Picc/Ml/Cvc(*)) 0 ml FLUSH 0600,1800 [facility] Last Admin: 02/17/17 08:45 Dose: Not Given Ceftriaxone Sodium 2 gm/ (Sodium Chloride) 100 mls @ 200 mls/hr IVPB Q24H [facility] Last Admin: 02/16/17 22:18 Dose: 200 mls/hr Clindamycin HCl/Dextrose (Cleocin 600 Mg Ivpremix(*) Sdv) 600 mg in 50 mls @ 100 mls/hr IV Q8H [facility] Last Admin: 02/17/17 08:17 Dose: 100 mls/hr Sodium Chloride (Ns 0.9% 1000 Ml*) 1,000 mls @ 40 mls/hr IV PER RATE [facility] Last Admin: 02/17/17 06:22 Dose: 40 mls/hr Dornase Samson 5 mg/ Sodium (Chloride) 50 mls @ 0 mls/hr INTRAPLEUR BID [facility] PRN Reason: As Directed Stop: 02/19/17 21:01 Last Admin: 02/17/17 10:30 Dose: 999 mls/hr Alteplase, Recombinant 10 mg/ (Sodium Chloride) 50 mls @ 0 mls/hr INTRAPLEUR BID [facility] PRN Reason: As Directed Stop: 02/19/17 21:01 Last Admin: 02/17/17 10:30 Dose: 999 mls/hr Insulin Glargine (Lantus(*)) 15 units SUBCUT Q24H [facility] Last Admin: 02/16/17 17:11 Dose: 15 ml Insulin Human Lispro (Humalog*) 0 units SUBCUT ACHS [facility] PRN Reason: Protocol Last Admin: 02/17/17 12:02 Dose: 3 ml Lisinopril (Prinivil Tab*) 20 mg PO DAILY [facility] Magnesium Oxide (Magox 400 Tab*) 800 mg PO DAILY [facility] Last Admin: 02/17/17 08:14 Dose: 800 mg Ondansetron HCl (Zofran Inj*) 4 mg IV Q2H PRN PRN Reason: NAUSEA Last Admin: 02/16/17 08:35 Dose: 4 mg Oxycodone/Acetaminophen (Percocet 5/325 Tab*) 1 tab PO Q4H PRN PRN Reason: PAIN Last Admin: 02/17/17 08:15 Dose: 1 tab Pramipexole Dihydrochloride (Mirapex Tab*) 0.125 mg PO BID [facility] Last Admin: 02/17/17 08:14 Dose: 0.125 mg Promethazine HCl (Phenergan Inj(Restricted)*) 25 mg IM Q6H PRN PRN Reason: NAUSEA/VOMITING Last Admin: 02/14/17 11:41 Dose: 25 mg Vital Signs 02/16/17 02/16/17 02/16/17 13:27 13:31 15:51 Temperature 98.6 F Pulse Rate 75 76 Respiratory 17 20 22 Rate Blood Pressure 168/82 (mmHg) O2 Sat by Pulse 97 97 Oximetry 02/16/17 02/16/17 02/16/17 16:49 18:49 20:08 Temperature 98.4 F Pulse Rate 67 Respiratory 20 18 25 Rate Blood Pressure 159/60 (mmHg) O2 Sat by Pulse 97 Oximetry 02/16/17 02/16/17 02/16/17 20:37 21:00 22:29 Temperature Pulse Rate Respiratory 25 24 24 Rate Blood Pressure (mmHg) O2 Sat by Pulse Oximetry 02/16/17 02/17/17 02/17/17 23:40 00:29 03:00 Temperature 98.3 F Pulse Rate 73 Respiratory 20 22 24 Rate Blood Pressure 167/68 (mmHg) O2 Sat by Pulse 100 Oximetry 02/17/17 02/17/17 02/17/17 03:19 05:00 08:00 Temperature 98.4 F Pulse Rate 69 Respiratory 18 20 16 Rate Blood Pressure 158/66 (mmHg) O2 Sat by Pulse 95 Oximetry 02/17/17 02/17/17 02/17/17 08:15 08:20 08:32 Temperature 98.6 F Pulse Rate 70 71 Respiratory 18 20 16 Rate Blood Pressure 179/80 (mmHg) O2 Sat by Pulse 93 94 Oximetry 02/17/17 02/17/17 10:15 11:07 Temperature 98.9 F Pulse Rate 71 Respiratory 16 18 Rate Blood Pressure 193/75 (mmHg) O2 Sat by Pulse 94 Oximetry Oxygen Devices in Use Now: Nasal Cannula Appearance: Alert, in a chair. Looks tired, otherwise comfortable. Eyes: No Scleral Icterus Neck: NL Appearance and Movements; NL JVP, No Thyroid Enlargement, Masses Respiratory: Symmetrical Chest Expansion and Respiratory Effort, - - diminished BS L base Cardiovascular: NL Sounds; No Murmurs; No JVD, RRR, No Edema, - Extremities: No Clubbing, Cyanosis, - - Tr edema BL Skin: No Rash or Ulcers, No Nodules or Sclerosis, - Neurological: Alert and Oriented x 3, NL Sensation Result Diagrams: 02/17/17 06:03 02/15/17 05:40 Additional Lab and Data: Lab Results 02/12/17 02/12/17 02/12/17 Range/Units 13:10 13:10 13:10 WBC 19.8 H (3.5-10.8) 10^3/ul RBC 4.35 (4.0-5.4) 10^6/ul Hgb 12.2 L (14.0-18.0) g/dl Hct 37 L (42-52) % MCV 85 (80-94) fL MCH 28 (27-31) pg MCHC 33 (31-36) g/dl RDW 15 (10.5-15) % Plt Count 531 H (150-450) 10^3/ul MPV 8 (7.4-10.4) um3 Neut % (Auto) 86.2 H (38-83) % Lymph % (Auto) 5.1 L (25-47) % [place] % (Auto) 7.3 (1-9) % Eos % (Auto) 0.3 (0-6) % Baso % (Auto) 1.1 (0-2) % Absolute Neuts (auto) 17.1 H (1.5-7.7) 10^3/ul Absolute Lymphs (auto) 1.0 (1.0-4.8) 10^3/ul Absolute Monos (auto) 1.4 H (0-0.8) 10^3/ul Absolute Eos (auto) 0.1 (0-0.6) 10^3/ul Absolute Basos (auto) 0.2 (0-0.2) 10^3/ul Absolute Nucleated RBC 0.01 10^3/ul Nucleated RBC % 0 INR (Anticoag Therapy) 1.19 H (0.89-1.11) APTT 26.8 (26.0-36.3) seconds D-Dimer, Quantitative > 1050 H (Less Than 230) ng/mL Sodium 132 L (133-145) mmol/L Potassium 4.5 (3.5-5.0) mmol/L Chloride 97 L (101-111) mmol/L Carbon Dioxide 25 (22-32) mmol/L Anion Gap 10 (2-11) mmol/L BUN 59 H (6-24) mg/dL Creatinine 1.86 H (0.67-1.17) mg/dL Est GFR ( Amer) 46.3 (>60) Est GFR (Non-Af Amer) 36.0 (>60) BUN/Creatinine Ratio 31.7 H (8-20) Glucose 163 H (70-100) mg/dL Lactic Acid (0.5-2.0) mmol/L Calcium 9.5 (8.6-10.3) mg/dL Magnesium 2.9 H (1.9-2.7) mg/dL Total Bilirubin 0.50 (0.2-1.0) mg/dL AST 20 (13-39) U/L ALT 26 (7-52) U/L Alkaline Phosphatase 93 (34-104) U/L Total Creatine Kinase 107 (10-223) U/L CK-MB (CK-2) 8.5 H (0.6-6.3) ng/mL Troponin I 0.34 H* (<0.04) ng/mL C-Reactive Protein 459.29 H (< 5.00) mg/L B-Natriuretic Peptide ( - 100) pg/mL Total Protein 7.6 (6.4-8.9) g/dL Albumin 3.3 (3.2-5.2) g/dL Globulin 4.3 H (2-4) g/dL Albumin/Globulin Ratio 0.8 L (1-3) Lipase < 10 L (11.0-82.0) U/L TSH 0.69 (0.34-5.60) mcIU/mL Urine Color Urine Appearance Urine pH (5-9) Ur Specific [place] (1.010-1.030) Urine Protein (Negative) Urine Ketones (Negative) Urine Blood (Negative) Urine Nitrate (Negative) Urine Bilirubin (Negative) Urine Urobilinogen (Negative) Ur Leukocyte Esterase (Negative) Urine WBC (Auto) (Absent) Urine RBC (Auto) (Absent) Ur Squamous Epith Cells (Absent) Urine Bacteria (Absent) Urine Glucose (Negative) 02/12/17 02/12/17 02/12/17 Range/Units 13:10 13:10 14:00 WBC (3.5-10.8) 10^3/ul RBC (4.0-5.4) 10^6/ul Hgb (14.0-18.0) g/dl Hct (42-52) % MCV (80-94) fL MCH (27-31) pg MCHC (31-36) g/dl RDW (10.5-15) % Plt Count (150-450) 10^3/ul MPV (7.4-10.4) um3 Neut % (Auto) (38-83) % Lymph % (Auto) (25-47) % [place] % (Auto) (1-9) % Eos % (Auto) (0-6) % Baso % (Auto) (0-2) % Absolute Neuts (auto) (1.5-7.7) 10^3/ul Absolute Lymphs (auto) (1.0-4.8) 10^3/ul Absolute Monos (auto) (0-0.8) 10^3/ul Absolute Eos (auto) (0-0.6) 10^3/ul Absolute Basos (auto) (0-0.2) 10^3/ul Absolute Nucleated RBC 10^3/ul Nucleated RBC % INR (Anticoag Therapy) (0.89-1.11) APTT (26.0-36.3) seconds D-Dimer, Quantitative (Less Than 230) ng/mL Sodium (133-145) mmol/L Potassium (3.5-5.0) mmol/L Chloride (101-111) mmol/L Carbon Dioxide (22-32) mmol/L Anion Gap (2-11) mmol/L BUN (6-24) mg/dL Creatinine (0.67-1.17) mg/dL Est GFR ( Amer) (>60) Est GFR (Non-Af Amer) (>60) BUN/Creatinine Ratio (8-20) Glucose (70-100) mg/dL Lactic Acid 1.2 (0.5-2.0) mmol/L Calcium (8.6-10.3) mg/dL Magnesium (1.9-2.7) mg/dL Total Bilirubin (0.2-1.0) mg/dL AST (13-39) U/L ALT (7-52) U/L Alkaline Phosphatase (34-104) U/L Total Creatine Kinase (10-223) U/L CK-MB (CK-2) (0.6-6.3) ng/mL Troponin I (<0.04) ng/mL C-Reactive Protein (< 5.00) mg/L B-Natriuretic Peptide 412 H ( - 100) pg/mL Total Protein (6.4-8.9) g/dL Albumin (3.2-5.2) g/dL Globulin (2-4) g/dL Albumin/Globulin Ratio (1-3) Lipase (11.0-82.0) U/L TSH (0.34-5.60) mcIU/mL Urine Color Yellow Urine Appearance Clear Urine pH 5.0 (5-9) Ur Specific [place] 1.017 (1.010-1.030) Urine Protein 1+(30 mg/dl) H (Negative) Urine Ketones Negative (Negative) Urine Blood Negative (Negative) Urine Nitrate Negative (Negative) Urine Bilirubin Negative (Negative) Urine Urobilinogen Negative (Negative) Ur Leukocyte Esterase Negative (Negative) Urine WBC (Auto) Trace(0-5/hpf) (Absent) Urine RBC (Auto) Trace(0-2/hpf) (Absent) Ur Squamous Epith Cells Present H (Absent) Urine Bacteria Absent (Absent) Urine Glucose Negative (Negative) Microbiology and Other Data: Microbiology 02/12/17 14:44 Aerobic Blood Culture - Preliminary Blood Venous No Growth Day 4 Anaerobic Blood Culture - Preliminary No Growth Day 4 Blood Culture - Final 02/12/17 18:00 Gram Stain - Final Pleural Fluid Body Fluid Culture - Preliminary No Growth Day 3 02/13/17 08:11 Aerobic Blood Culture - Preliminary Blood Venous No Growth Day 3 Anaerobic Blood Culture - Preliminary No Growth Day 3 Blood Culture - Final 02/13/17 08:02 Aerobic Blood Culture - Preliminary Blood Venous No Growth Day 3 Anaerobic Blood Culture - Preliminary No Growth Day 3 Blood Culture - Final 02/12/17 20:13 Gram Stain - Final Sputum Sputum Culture - Final Normal Tita 02/12/17 15:30 Nasal Screen MRSA (PCR)(AMAYA) - Final Nasal Mrsa Negative 02/12/17 16:59 Legionella Urinary Antigen - Final Urine Negative Legionella Streptococcus pneumoniae Ag Screen - Final Negative S. pneumo Antigen Assess/Plan/Problems-Billing Assessment: - Patient Problems (1) Pleural effusion Current Visit: Yes Status: Acute Code(s): J90 - PLEURAL EFFUSION, NOT ELSEWHERE CLASSIFIED SNOMED Code(s): 40217204 Comment: Neg cytology, only 595 WBC's. Note CRP >400. C&S neg. Continue ceftriaxone and clindamycin. ID and pulmonology consults appreciated. Dornase injected in CT by HAKEEM Mitchell, plan is to give bid x [address] scan . (2) Diabetes Current Visit: Yes Status: Acute Code(s): E11.9 - TYPE 2 DIABETES MELLITUS WITHOUT COMPLICATIONS SNOMED Code(s): 01012263 Comment: Continue to hold metformin. FS max 165 last 6 checks on 02/17. Continue of Lispro coverage and Lantus 15 U daily. (3) HTN (hypertension) Current Visit: Yes Status: Acute Code(s): I10 - ESSENTIAL (PRIMARY) HYPERTENSION SNOMED Code(s): 30548739 Comment: Increase lisinopril to 20 mg daily, conside d/c clonidine 02/18. The latter could be sedating. (4) Morbid obesity Current Visit: Yes Status: Acute Code(s): E66.01 - MORBID (SEVERE) OBESITY DUE TO EXCESS CALORIES SNOMED Code(s): 886651684 Comment: BMI 48.7 (5) Chronic pain Current Visit: Yes Status: Acute Code(s): G89.29 - OTHER CHRONIC PAIN SNOMED Code(s): 99520184 Comment: Both patient and family expressed concern about over-use of opiates for his chronic pain. He seems less sedated 02/17. Continue oxycodone/APAP 1 q 4 hr PRN.
--- NOTE | 2017-02-17 13:52 | PN ---
Progress Note - Progress Note Date of Service: 02/17/17 SOAP: Subjective: CC: empyema HPI: 72 year old man with left chest empyema and chest tube placement now had lytics instilled. No fever, rash, or diarrhea. Breathing is better, ongoing cough. Objective: [] Vital Signs Temp 37.2 C 02/17/17 11:07 Pulse 67 02/17/17 13:21 Resp 16 02/17/17 13:21 BP 193/75 02/17/17 11:07 Pulse Ox 95 02/17/17 13:21 Intake & Output 02/16/17 02/17/17 02/17/17 18:59 06:59 18:59 Intake Total 1653 1951 240 Output Total 55 455 500 Balance 1598 1496 -260 Intake: IV Fluids 616 ABX - CLINDAMYCIN 55 NS 561 IVPB 1363 ABX - CEFTRIAXONE 52 NS 1311 Oral 290 1335 240 Output: Chest Tube #1 55 5 Urine 450 500 Other: Estimated Void Medium Large Estimated Stool Amount Large # Voids 2 1 Gen:awake, no distress HEENT:PERRL, MMM Heart:RRR no murmur Lungs:Decr BS at bases; left chest tube Abd:+BS NTND soft Skin: No rash Laboratory Results - last 24 hr 02/16/17 02/16/17 02/17/17 16:54 22:01 06:03 WBC 17.1 H RBC 4.13 Hgb 11.6 L Hct 35 L MCV 86 MCH 28 MCHC 33 RDW 15 Plt Count 397 MPV 7 L POC Glucose (mg/dL) 161 H 130 H 02/17/17 02/17/17 08:23 11:42 WBC RBC Hgb Hct MCV MCH MCHC RDW Plt Count MPV POC Glucose (mg/dL) 139 H 159 H Assessment: 1. Left chest empyema, likely polymicrobial including oral kisha. Loculations persist on most recent CT. Lytics per pulm and surgery. 2. morbid obesity 3. T2DM Plan: 1. Ceftriaxone 2 gm daily, clinda 600 mg IV Q8hrs; will plan on 4 weeks IV antibiotics after chest tube out; longer if residual loculation. 35 minutes face to face time >50% in counseling with patient and discussing [facility] antibiotic plans, all questions answered.
[2017-02-17] MEDS: Insulin GLARGINE(*) 1 UNITS UNIT SUBCUT SCH (16:33)
--- NOTE | 2017-02-17 17:40 | PN ---
Progress Note - Progress Note Date of Service: 02/17/17 - Pulm f/u Note: Pt seen and examined at bedside. Reports improvement in breathing. Active Medications Generic Name Dose Route Start Last Admin Trade Name Freq PRN Reason Stop Dose Admin Al Hydrox/Mg Hydrox/Simethicone 30 ml 02/13/17 12:07 02/16/17 04:57 Maalox Plus* PO 30 ml Q4H PRN Administration HEARTBURN Albuterol/Ipratropium 1 neb 02/12/17 14:47 Duoneb (Albuterol 2.5 Mg/Ipratropium 0.5 Mg) INH Q6H PRN sob/wheexing Albuterol/Ipratropium 1 neb 02/16/17 13:00 02/17/17 13:18 Duoneb (Albuterol 2.5 Mg/Ipratropium 0.5 Mg) INH 1 neb [id number] AWAKE SOHAN Administration Aspirin 325 mg 02/13/17 09:00 02/17/17 08:14 Aspirin Tab* PO 325 mg DAILY SOHAN Administration Atorvastatin Calcium 10 mg 02/13/17 09:00 02/17/17 08:14 Lipitor* PO 10 mg DAILY SOHAN Administration Clonidine HCl 0.1 mg 02/16/17 16:00 02/16/17 16:49 Nbxbptop-Crt-2 0.1 Mg Patch* TRANSDERM 1 patch Q7D SOHAN Administration Dextrose 12.5 gm 02/12/17 15:28 D50w Syringe 50 Ml* IV PUSH .FOR FS < 60 - SS PRN FS < 60 Heparin Sodium (Porcine) 5,000 units 02/12/17 22:00 02/17/17 14:06 Heparin Vial(*) SUBCUT 5,000 units Q8HR SOHAN Administration Heparin Sodium (Porcine) 0 ml 02/13/17 18:00 02/17/17 16:45 Heparin Flush Picc/Ml/Cvc(*) FLUSH 1 ml 0600,1800 SOHAN Administration Ceftriaxone Sodium 2 gm/ 100 mls @ 200 mls/hr 02/13/17 21:00 02/16/17 22:18 Sodium Chloride IVPB 200 mls/hr Q24H SOHAN Administration Clindamycin HCl/Dextrose 600 mg in 50 mls @ 100 mls/hr 02/13/17 17:00 16:32 Cleocin 600 Mg Ivpremix(*) Sdv IV 100 mls/hr Q8H SOHAN Administration Sodium Chloride 1,000 mls @ 40 mls/hr 02/16/17 15:10 02/17/17 06:22 Ns 0.9% 1000 Ml* IV 40 mls/hr PER RATE SOHAN Administration Dornase Samson 5 mg/ Sodium 50 mls @ 0 mls/hr 02/17/17 09:00 02/17/17 17:25 Chloride INTRAPLEUR 02/19/17 21:01 999 mls/hr BID SOHAN Administration As Directed Alteplase, Recombinant 10 mg/ 50 mls @ 0 mls/hr 02/17/17 09:00 02/17/17 17:25 Sodium Chloride INTRAPLEUR 02/19/17 21:01 999 mls/hr BID SOHAN Administration As Directed Insulin Glargine 15 units 02/16/17 16:00 02/17/17 16:33 Lantus(*) SUBCUT 15 units Q24H SOHAN Administration Insulin Human Lispro 0 units 02/16/17 15:22 02/17/17 16:44 Humalog* SUBCUT 2 unit ACHS SOHAN Administration Protocol Lisinopril 20 mg 02/18/17 09:00 Prinivil Tab* PO DAILY SOHAN Magnesium Oxide 800 mg 02/13/17 09:00 02/17/17 08:14 Magox 400 Tab* PO 800 mg DAILY SOHAN Administration Ondansetron HCl 4 mg 02/13/17 10:51 02/16/17 08:35 Zofran Inj* IV 4 mg Q2H PRN Administration NAUSEA Oxycodone/Acetaminophen 1 tab 02/16/17 15:19 02/17/17 14:07 Percocet 5/325 Tab* PO 1 tab Q4H PRN Administration PAIN Pramipexole Dihydrochloride 0.125 mg 02/12/17 21:00 02/17/17 08:14 Mirapex Tab* PO 0.125 mg BID SOHAN Administration Promethazine HCl 25 mg 02/14/17 11:20 02/14/17 11:41 Phenergan Inj(Restricted)* IM 25 mg Q6H PRN Administration NAUSEA/VOMITING Vital Signs Temp Pulse Resp BP Pulse Ox 98.9 F 67 18 193/75 95 02/17/17 11:07 02/17/17 13:21 02/17/17 16:07 02/17/17 11:07 02/17/17 13:21 O/E: Morbidly obese male in NAD, sitting up in recliner, at bedside HEENT: PERRLA, No JVD, MP-4 Lungs: Diminished air entry at bases, wheeze + b/l, slightly improved CVS: S1, S2+, regular Abd: Obese, BS+ Ext: Trace edema Neuro: No focal defecits Laboratory Results - last 24 hr 02/16/17 02/17/17 02/17/17 22:01 06:03 08:23 WBC 17.1 H RBC 4.13 Hgb 11.6 L Hct 35 L MCV 86 MCH 28 MCHC 33 RDW 15 Plt Count 397 MPV 7 L POC Glucose (mg/dL) 130 H 139 H 02/17/17 02/17/17 11:42 16:35 WBC RBC Hgb Hct MCV MCH MCHC RDW Plt Count MPV POC Glucose (mg/dL) [address] chest 02/14/17- Improvement in left effusion, no significant mediastinal shift , less atlectasis of left lung I/R: 72 y o morbidly obese m, former smoker with loculated lt effusion, leucocytosis, elevated CRP concerning for infectious etiology Pleural fluid cx negative, exudative effusion as per available criteria Cytology negative for malignancy, acute and chronic inflammation present On broad spectrum abx Rpt CT chest slight improvement in effusion still has loculated fluid Receiving tPA and darnase while awaiting definitive management Ordered 10mg tPA and 5 mg darnase to be administered into chest tube, chest tube clamped for 1 hr and open to drain to gravity VATS guided fibrinolysis if above fails D/W Dr Kelly , pt and his
--- NOTE | 2017-02-17 17:53 | PN ---
Progress Note - Progress Note Date of Service: 02/17/17 Note: Surgery Progress: 2nd dose of Dornase/Alteplase instilled via chest tube. Tolerated well. Will repeat BID 02/18.
[2017-02-18] MEDS: Albuterol/Ipratropium NEB.SOL* Albuterol 2.5 MG/Ipratropium 0.5 MG 3 ML INH SCH ×4 (01:37→20:00)
[2017-02-18] MEDS: Clindamycin 600 MG IVPREMIX(* 600 MG/50 ML SDV IV SCH ×3 (01:46→16:46)
[2017-02-18] MEDS: oxyCODONE/Acetamin 5/325 MG* TAB PO PRN ×4 (04:31→21:26)
[2017-02-18] MEDS: Heparin VIAL(*) 5000 UNITS/ML VIAL (FIVE THOUSAND) SUBCUT SCH ×3 (06:17→21:37)
[2017-02-18] MEDS: Insulin LISPRO* 1 UNITS UNIT SUBCUT SCH ×4 (08:10→21:36)
[2017-02-18] MEDS: Pramipexole TAB* 0.125 MG PO SCH ×2 (08:39→21:27)
[2017-02-18] MEDS: Aspirin TAB* 325 MG PO SCH (08:39)
[2017-02-18] MEDS: Magnesium Oxide TAB* 400 MG PO SCH (08:39)
[2017-02-18] MEDS: Lisinopril TAB* 10 MG PO SCH (08:39)
[2017-02-18] MEDS: Atorvastatin* 10 MG TAB PO SCH (08:40)
--- NOTE | 2017-02-18 10:21 | PN ---
Progress Note - Progress Note Date of Service: 02/18/17 SOAP: Subjective:loculated left pleural effusion,empyema less dyspneic,coughing more,back pain relieved with Oxycodone,tolerated fibrinolytics [] Objective:lungs:diminished bs bases,wheezes;Chest tube with serous drainage,new pleurevac,level at 120ml at present [] Assessment:L empyema [] Plan:Altaplase/Dornase instilled via Chest tube at 10am,clamped until noon and then repeat this afternoon plan discussed with patient and his son []
[2017-02-18] MEDS: DORNASE ALFA 1 mg/ml(NF) 5 MG in NS 0.9% 50 ML* 45 ML INTRAPLEUR SCH ×3 (10:27→21:12)
[2017-02-18] MEDS: Alteplase (CATHFLO)* 10 MG in NS 0.9% 50 ML* 40 ML INTRAPLEUR SCH ×3 (10:27→21:11)
[2017-02-18] MEDS ORDERED: Lisinopril TAB* 10 MG PO ONE (10:45)
[2017-02-18] MEDS: NS 0.9% 1000 ML* 1,000 ML IV SCH ×2 (11:18→21:30)
--- NOTE | 2017-02-18 12:24 | RAD ---
Indication: Follow-up LEFT pleural effusion. Comparison: February 14, 2017 CT. February 14, 2017 chest radiograph. Technique: Upright AP 1120 hours Report: LEFT peripheral chest tube in place with the cephalad margin of the level of the posterior segment of the fifth rib. Moderate dependent LEFT pleural effusion with interval decrease in size compared with the February 14, 2017 exam and partial resolution of LEFT lung atelectasis. The RIGHT lung and pleural space are grossly clear. Upper normal heart size. Unremarkable central pulmonary vasculature and mediastinal contours accounting for portable AP technique. IMPRESSION: Interval decrease in volume of LEFT pleural effusion with proportional resolution of atelectasis.
[2017-02-18] MEDS ORDERED: Insulin GLARGINE(*) 1 UNITS UNIT SUBCUT SCH (15:14)
--- NOTE | 2017-02-18 15:19 | PN ---
Progress Note - Progress Note Date of Service: 02/18/17 SOAP: Subjective: CC: empyema HPI: 72 year old man with left chest empyema and chest tube placement now had lytics instilled. No fever, rash, or diarrhea. Feels a little better, ongoing cough. Objective: [] Temp Pulse Resp BP Pulse Ox 37.0 C 72 18 153/57 94 02/18/17 11:08 02/18/17 11:08 02/18/17 12:39 02/18/17 11:08 02/18/17 11:08 Gen:awake, no distress HEENT:PERRL, MMM Heart:RRR no murmur Lungs:Decr BS at bases; left chest tube Abd:+BS NTND soft Skin: No rash Laboratory Results - last 24 hr 02/17/17 02/17/17 02/18/17 16:35 20:55 07:38 POC Glucose (mg/dL) 131 H 206 H 147 H 02/18/17 11:35 POC Glucose (mg/dL) 228 H Assessment: 1. Left chest empyema, likely polymicrobial including oral kisha. Loculations persist on most recent CT. Lytics per pulm and surgery. 2. morbid obesity 3. T2DM Plan: 1. Ceftriaxone 2 gm daily, clinda 600 mg IV Q8hrs; will plan on 4 weeks IV antibiotics after chest tube out; fu CXR pending. 35 minutes face to face time >50% in counseling with patient and son discussing antibiotic and discharge plans.
--- NOTE | 2017-02-18 15:37 | PN ---
Subjective Date of Service: 02/18/17 Interval History: C/O constipation. Also admits to ome yellow sputum. Objective Active Medications: Al Hydrox/Mg Hydrox/Simethicone (Maalox Plus*) 30 ml PO Q4H PRN PRN Reason: HEARTBURN Last Admin: 02/16/17 04:57 Dose: 30 ml Albuterol/Ipratropium (Duoneb (Albuterol 2.5 Mg/Ipratropium 0.5 Mg)) 1 neb INH Q6H PRN PRN Reason: sob/wheexing Albuterol/Ipratropium (Duoneb (Albuterol 2.5 Mg/Ipratropium 0.5 Mg)) 1 neb INH [id number] AWAKE [facility] Last Admin: 02/18/17 07:56 Dose: 1 neb Aspirin (Aspirin Tab*) 325 mg PO DAILY [facility] Last Admin: 02/18/17 08:39 Dose: 325 mg Atorvastatin Calcium (Lipitor*) 10 mg PO DAILY [facility] Last Admin: 02/18/17 08:40 Dose: 10 mg Clonidine HCl (Tceufmoo-Yro-7 0.1 Mg Patch*) 0.1 mg TRANSDERM Q7D [facility] Last Admin: 02/16/17 16:49 Dose: 1 patch Dextrose (D50w Syringe 50 Ml*) 12.5 gm IV PUSH .FOR FS < 60 - SS PRN PRN Reason: FS < 60 Heparin Sodium (Porcine) (Heparin Vial(*)) 5,000 units SUBCUT Q8HR [facility] Last Admin: 02/18/17 13:54 Dose: 5,000 units Heparin Sodium (Porcine) (Heparin Flush Picc/Ml/Cvc(*)) 0 ml FLUSH 0600,1800 [facility] Last Admin: 02/18/17 06:17 Dose: 1 ml Ceftriaxone Sodium 2 gm/ (Sodium Chloride) 100 mls @ 200 mls/hr IVPB Q24H [facility] Last Admin: 02/17/17 21:04 Dose: 200 mls/hr Clindamycin HCl/Dextrose (Cleocin 600 Mg Ivpremix(*) Sdv) 600 mg in 50 mls @ 100 mls/hr IV Q8H [facility] Last Admin: 02/18/17 08:40 Dose: 100 mls/hr Sodium Chloride (Ns 0.9% 1000 Ml*) 1,000 mls @ 40 mls/hr IV PER RATE [facility] Last Admin: 02/18/17 11:18 Dose: 40 mls/hr Dornase Samson 5 mg/ Sodium (Chloride) 50 mls @ 0 mls/hr INTRAPLEUR BID [facility] PRN Reason: As Directed Stop: 02/19/17 21:01 Last Admin: 02/18/17 10:27 Dose: 999 mls/hr Alteplase, Recombinant 10 mg/ (Sodium Chloride) 50 mls @ 0 mls/hr INTRAPLEUR BID [facility] PRN Reason: As Directed Stop: 02/19/17 21:01 Last Admin: 02/18/17 10:27 Dose: 999 mls/hr Insulin Glargine (Lantus(*)) 18 units SUBCUT Q24H [facility] Insulin Human Lispro (Humalog*) 0 units SUBCUT ACHS [facility] PRN Reason: Protocol Last Admin: 02/18/17 12:01 Dose: 6 unit Lisinopril (Prinivil Tab*) 20 mg PO DAILY [facility] Last Admin: 02/18/17 08:39 Dose: 20 mg Magnesium Oxide (Magox 400 Tab*) 800 mg PO DAILY [facility] Last Admin: 02/18/17 08:39 Dose: 800 mg Ondansetron HCl (Zofran Inj*) 4 mg IV Q2H PRN PRN Reason: NAUSEA Last Admin: 02/16/17 08:35 Dose: 4 mg Oxycodone/Acetaminophen (Percocet 5/325 Tab*) 1 tab PO Q4H PRN PRN Reason: PAIN Last Admin: 02/18/17 12:39 Dose: 1 tab Pramipexole Dihydrochloride (Mirapex Tab*) 0.125 mg PO BID [facility] Last Admin: 02/18/17 08:39 Dose: 0.125 mg Promethazine HCl (Phenergan Inj(Restricted)*) 25 mg IM Q6H PRN PRN Reason: NAUSEA/VOMITING Last Admin: 02/14/17 11:41 Dose: 25 mg Vital Signs 02/17/17 02/17/17 02/17/17 15:34 16:07 18:48 Temperature 98.2 F Pulse Rate 70 Respiratory 18 18 18 Rate Blood Pressure 142/64 (mmHg) O2 Sat by Pulse 93 Oximetry 02/17/17 02/17/17 02/17/17 19:16 19:20 19:56 Temperature 99.2 F Pulse Rate 76 76 Respiratory 18 16 18 Rate Blood Pressure 169/76 (mmHg) O2 Sat by Pulse 93 94 Oximetry 02/17/17 02/17/17 02/17/17 20:48 23:11 23:12 Temperature 97.9 F Pulse Rate 79 Respiratory 16 15 16 Rate Blood Pressure 154/75 (mmHg) O2 Sat by Pulse 93 Oximetry 02/18/17 02/18/17 02/18/17 01:11 01:36 03:32 Temperature 97.8 F Pulse Rate 79 72 Respiratory 14 16 16 Rate Blood Pressure 151/65 (mmHg) O2 Sat by Pulse 93 98 Oximetry 02/18/17 02/18/17 02/18/17 04:31 06:18 07:31 Temperature 98.1 F Pulse Rate 69 Respiratory 15 15 18 Rate Blood Pressure 132/81 (mmHg) O2 Sat by Pulse 94 Oximetry 02/18/17 02/18/17 02/18/17 08:00 08:38 10:38 Temperature Pulse Rate 90 Respiratory 18 18 18 Rate Blood Pressure (mmHg) O2 Sat by Pulse Oximetry 02/18/17 02/18/17 11:08 12:39 Temperature 98.6 F Pulse Rate 72 Respiratory 18 18 Rate Blood Pressure 153/57 (mmHg) O2 Sat by Pulse 94 Oximetry Oxygen Devices in Use Now: Nasal Cannula Appearance: Alert, in a chair. In good spirits. Looks comfortable. Neck: NL Appearance and Movements; NL JVP, No Thyroid Enlargement, Masses Respiratory: Symmetrical Chest Expansion and Respiratory Effort - Diminished BS L base. Cardiovascular: NL Sounds; No Murmurs; No JVD, RRR, No Edema, - Extremities: No Clubbing, Cyanosis, - - Tr edema BL Skin: No Rash or Ulcers, No Nodules or Sclerosis, - Neurological: Alert and Oriented x 3, NL Sensation Result Diagrams: 02/17/17 06:03 02/15/17 05:40 Additional Lab and Data: Lab Results 02/12/17 02/12/17 02/12/17 Range/Units 13:10 13:10 13:10 WBC 19.8 H (3.5-10.8) 10^3/ul RBC 4.35 (4.0-5.4) 10^6/ul Hgb 12.2 L (14.0-18.0) g/dl Hct 37 L (42-52) % MCV 85 (80-94) fL MCH 28 (27-31) pg MCHC 33 (31-36) g/dl RDW 15 (10.5-15) % Plt Count 531 H (150-450) 10^3/ul MPV 8 (7.4-10.4) um3 Neut % (Auto) 86.2 H (38-83) % Lymph % (Auto) 5.1 L (25-47) % [place] % (Auto) 7.3 (1-9) % Eos % (Auto) 0.3 (0-6) % Baso % (Auto) 1.1 (0-2) % Absolute Neuts (auto) 17.1 H (1.5-7.7) 10^3/ul Absolute Lymphs (auto) 1.0 (1.0-4.8) 10^3/ul Absolute Monos (auto) 1.4 H (0-0.8) 10^3/ul Absolute Eos (auto) 0.1 (0-0.6) 10^3/ul Absolute Basos (auto) 0.2 (0-0.2) 10^3/ul Absolute Nucleated RBC 0.01 10^3/ul Nucleated RBC % 0 INR (Anticoag Therapy) 1.19 H (0.89-1.11) APTT 26.8 (26.0-36.3) seconds D-Dimer, Quantitative > 1050 H (Less Than 230) ng/mL Sodium 132 L (133-145) mmol/L Potassium 4.5 (3.5-5.0) mmol/L Chloride 97 L (101-111) mmol/L Carbon Dioxide 25 (22-32) mmol/L Anion Gap 10 (2-11) mmol/L BUN 59 H (6-24) mg/dL Creatinine 1.86 H (0.67-1.17) mg/dL Est GFR ( Amer) 46.3 (>60) Est GFR (Non-Af Amer) 36.0 (>60) BUN/Creatinine Ratio 31.7 H (8-20) Glucose 163 H (70-100) mg/dL Lactic Acid (0.5-2.0) mmol/L Calcium 9.5 (8.6-10.3) mg/dL Magnesium 2.9 H (1.9-2.7) mg/dL Total Bilirubin 0.50 (0.2-1.0) mg/dL AST 20 (13-39) U/L ALT 26 (7-52) U/L Alkaline Phosphatase 93 (34-104) U/L Total Creatine Kinase 107 (10-223) U/L CK-MB (CK-2) 8.5 H (0.6-6.3) ng/mL Troponin I 0.34 H* (<0.04) ng/mL C-Reactive Protein 459.29 H (< 5.00) mg/L B-Natriuretic Peptide ( - 100) pg/mL Total Protein 7.6 (6.4-8.9) g/dL Albumin 3.3 (3.2-5.2) g/dL Globulin 4.3 H (2-4) g/dL Albumin/Globulin Ratio 0.8 L (1-3) Lipase < 10 L (11.0-82.0) U/L TSH 0.69 (0.34-5.60) mcIU/mL Urine Color Urine Appearance Urine pH (5-9) Ur Specific [place] (1.010-1.030) Urine Protein (Negative) Urine Ketones (Negative) Urine Blood (Negative) Urine Nitrate (Negative) Urine Bilirubin (Negative) Urine Urobilinogen (Negative) Ur Leukocyte Esterase (Negative) Urine WBC (Auto) (Absent) Urine RBC (Auto) (Absent) Ur Squamous Epith Cells (Absent) Urine Bacteria (Absent) Urine Glucose (Negative) 02/12/17 02/12/17 02/12/17 Range/Units 13:10 13:10 14:00 WBC (3.5-10.8) 10^3/ul RBC (4.0-5.4) 10^6/ul Hgb (14.0-18.0) g/dl Hct (42-52) % MCV (80-94) fL MCH (27-31) pg MCHC (31-36) g/dl RDW (10.5-15) % Plt Count (150-450) 10^3/ul MPV (7.4-10.4) um3 Neut % (Auto) (38-83) % Lymph % (Auto) (25-47) % [place] % (Auto) (1-9) % Eos % (Auto) (0-6) % Baso % (Auto) (0-2) % Absolute Neuts (auto) (1.5-7.7) 10^3/ul Absolute Lymphs (auto) (1.0-4.8) 10^3/ul Absolute Monos (auto) (0-0.8) 10^3/ul Absolute Eos (auto) (0-0.6) 10^3/ul Absolute Basos (auto) (0-0.2) 10^3/ul Absolute Nucleated RBC 10^3/ul Nucleated RBC % INR (Anticoag Therapy) (0.89-1.11) APTT (26.0-36.3) seconds D-Dimer, Quantitative (Less Than 230) ng/mL Sodium (133-145) mmol/L Potassium (3.5-5.0) mmol/L Chloride (101-111) mmol/L Carbon Dioxide (22-32) mmol/L Anion Gap (2-11) mmol/L BUN (6-24) mg/dL Creatinine (0.67-1.17) mg/dL Est GFR ( Amer) (>60) Est GFR (Non-Af Amer) (>60) BUN/Creatinine Ratio (8-20) Glucose (70-100) mg/dL Lactic Acid 1.2 (0.5-2.0) mmol/L Calcium (8.6-10.3) mg/dL Magnesium (1.9-2.7) mg/dL Total Bilirubin (0.2-1.0) mg/dL AST (13-39) U/L ALT (7-52) U/L Alkaline Phosphatase (34-104) U/L Total Creatine Kinase (10-223) U/L CK-MB (CK-2) (0.6-6.3) ng/mL Troponin I (<0.04) ng/mL C-Reactive Protein (< 5.00) mg/L B-Natriuretic Peptide 412 H ( - 100) pg/mL Total Protein (6.4-8.9) g/dL Albumin (3.2-5.2) g/dL Globulin (2-4) g/dL Albumin/Globulin Ratio (1-3) Lipase (11.0-82.0) U/L TSH (0.34-5.60) mcIU/mL Urine Color Yellow Urine Appearance Clear Urine pH 5.0 (5-9) Ur Specific [place] 1.017 (1.010-1.030) Urine Protein 1+(30 mg/dl) H (Negative) Urine Ketones Negative (Negative) Urine Blood Negative (Negative) Urine Nitrate Negative (Negative) Urine Bilirubin Negative (Negative) Urine Urobilinogen Negative (Negative) Ur Leukocyte Esterase Negative (Negative) Urine WBC (Auto) Trace(0-5/hpf) (Absent) Urine RBC (Auto) Trace(0-2/hpf) (Absent) Ur Squamous Epith Cells Present H (Absent) Urine Bacteria Absent (Absent) Urine Glucose Negative (Negative) Microbiology and Other Data: Microbiology 02/12/17 14:44 Aerobic Blood Culture - Preliminary Blood Venous No Growth Day 4 Anaerobic Blood Culture - Preliminary No Growth Day 4 Blood Culture - Final 02/12/17 18:00 Gram Stain - Final Pleural Fluid Body Fluid Culture - Preliminary No Growth Day 3 02/13/17 08:11 Aerobic Blood Culture - Preliminary Blood Venous No Growth Day 3 Anaerobic Blood Culture - Preliminary No Growth Day 3 Blood Culture - Final 02/13/17 08:02 Aerobic Blood Culture - Preliminary Blood Venous No Growth Day 3 Anaerobic Blood Culture - Preliminary No Growth Day 3 Blood Culture - Final 02/12/17 20:13 Gram Stain - Final Sputum Sputum Culture - Final Normal Tita 02/12/17 15:30 Nasal Screen MRSA (PCR)(AMAYA) - Final Nasal Mrsa Negative 02/12/17 16:59 Legionella Urinary Antigen - Final Urine Negative Legionella Streptococcus pneumoniae Ag Screen - Final Negative S. pneumo Antigen Assess/Plan/Problems-Billing Assessment: - Patient Problems (1) Pleural effusion Current Visit: Yes Status: Acute Code(s): J90 - PLEURAL EFFUSION, NOT ELSEWHERE CLASSIFIED SNOMED Code(s): 06908513 Comment: Neg cytology, only 595 WBC's. Note CRP >400. C&S neg. Continue ceftriaxone and clindamycin. ID and pulmonology consults appreciated. Dornase injected in CT by HAKEEM Mitchell, plan is to give bid x [address] scan . CXR 02/18 shows some decreasein L pleural effusion. (2) Diabetes Current Visit: Yes Status: Acute Code(s): E11.9 - TYPE 2 DIABETES MELLITUS WITHOUT COMPLICATIONS SNOMED Code(s): 51570018 Comment: Continue to hold metformin. FS max 165 last 6 checks on 02/17. Continue Lispro coverage and increase Lantus to 18 U daily 02/18 4 PM. (3) HTN (hypertension) Current Visit: Yes Status: Acute Code(s): I10 - ESSENTIAL (PRIMARY) HYPERTENSION SNOMED Code(s): 30807789 Comment: Continue lisinopril 20 mg daily, d/c clonidine 02/18. He seems more alert on lower dose clonidine. (4) Morbid obesity Current Visit: Yes Status: Acute Code(s): E66.01 - MORBID (SEVERE) OBESITY DUE TO EXCESS CALORIES SNOMED Code(s): 079725924 Comment: BMI 48.7 (5) Chronic pain Current Visit: Yes Status: Acute Code(s): G89.29 - OTHER CHRONIC PAIN SNOMED Code(s): 73265439 Comment: Both patient and family expressed concern about over-use of opiates for his chronic pain. He seems less sedated 02/17. Continue oxycodone/APAP 5 1 q 4 hr PRN.
--- NOTE | 2017-02-18 15:43 | PN ---
Progress Note - Progress Note Date of Service: 02/18/17 - Pulm f/u Note: Pt seen and examined at bedside. Pt reports feeling better today. SOB is improved. Active Medications Generic Name Dose Route Start Last Admin Trade Name Freq PRN Reason Stop Dose Admin Al Hydrox/Mg Hydrox/Simethicone 30 ml 02/13/17 12:07 02/16/17 04:57 Maalox Plus* PO 30 ml Q4H PRN Administration HEARTBURN Albuterol/Ipratropium 1 neb 02/12/17 14:47 Duoneb (Albuterol 2.5 Mg/Ipratropium 0.5 Mg) INH Q6H PRN sob/wheexing Albuterol/Ipratropium 1 neb 02/16/17 13:00 02/18/17 07:56 Duoneb (Albuterol 2.5 Mg/Ipratropium 0.5 Mg) INH 1 neb [id number] AWAKE SOHAN Administration Aspirin 325 mg 02/13/17 09:00 02/18/17 08:39 Aspirin Tab* PO 325 mg DAILY SOHAN Administration Atorvastatin Calcium 10 mg 02/13/17 09:00 02/18/17 08:40 Lipitor* PO 10 mg DAILY SOHAN Administration Clonidine HCl 0.1 mg 02/16/17 16:00 02/16/17 16:49 [id number] 0.1 Mg Patch* TRANSDERM 1 patch Q7D SOHAN Administration Dextrose 12.5 gm 02/12/17 15:28 D50w Syringe 50 Ml* IV PUSH .FOR FS < 60 - SS PRN FS < 60 Heparin Sodium (Porcine) 5,000 units 02/12/17 22:00 02/18/17 13:54 Heparin Vial(*) SUBCUT 5,000 units Q8HR SOHAN Administration Heparin Sodium (Porcine) 0 ml 02/13/17 18:00 02/18/17 06:17 Heparin Flush Picc/Ml/Cvc(*) FLUSH 1 ml 0600,1800 SOHAN Administration Ceftriaxone Sodium 2 gm/ 100 mls @ 200 mls/hr 02/13/17 21:00 02/17/17 21:04 Sodium Chloride IVPB 200 mls/hr Q24H [facility]AN Administration Clindamycin HCl/Dextrose 600 mg in 50 mls @ 100 mls/hr 02/13/17 17:00 08:40 Cleocin 600 Mg Ivpremix(*) Sdv IV 100 mls/hr Q8H [facility]OHAN Administration Sodium Chloride 1,000 mls @ 40 mls/hr 02/16/17 15:10 02/18/17 11:18 Ns 0.9% 1000 Ml* IV 40 mls/hr PER RATE SOHAN Administration Dornase Samson 5 mg/ Sodium 50 mls @ 0 mls/hr 02/17/17 09:00 02/18/17 10:27 Chloride INTRAPLEUR 02/19/17 21:01 999 mls/hr BID SOHAN Administration As Directed Alteplase, Recombinant 10 mg/ 50 mls @ 0 mls/hr 02/17/17 09:00 02/18/17 10:27 Sodium Chloride INTRAPLEUR 02/19/17 21:01 999 mls/hr BID SOHAN Administration As Directed Insulin Glargine 18 units 02/18/17 16:00 Lantus(*) SUBCUT Q24H [facility] Insulin Human Lispro 0 units 02/16/17 15:22 02/18/17 12:01 Humalog* SUBCUT 6 unit ACHS SOHAN Administration Protocol Lactulose 90 ml 02/18/17 15:31 Lactulose* PO 02/18/17 15:32 ONCE ONE Lisinopril 20 mg 02/18/17 09:00 02/18/17 08:39 Prinivil Tab* PO 20 mg DAILY [facility]AN Administration Magnesium Oxide 800 mg 02/13/17 09:00 02/18/17 08:39 Magox 400 Tab* PO 800 mg DAILY [facility] Administration Ondansetron HCl 4 mg 02/13/17 10:51 02/16/17 08:35 Zofran Inj* IV 4 mg Q2H PRN Administration NAUSEA Oxycodone/Acetaminophen 1 tab 02/16/17 15:19 02/18/17 12:39 Percocet 5/325 Tab* PO 1 tab Q4H PRN Administration PAIN Polyethylene Glycol/Electrolytes 17 gm 02/18/17 21:00 Miralax* PO 0800,2100 SOHAN Pramipexole Dihydrochloride 0.125 mg 02/12/17 21:00 02/18/17 08:39 Mirapex Tab* PO 0.125 mg BID S[facility]AN Administration Promethazine HCl 25 mg 02/14/17 11:20 02/14/17 11:41 Phenergan Inj(Restricted)* IM 25 mg Q6H PRN Administration NAUSEA/VOMITING Vital Signs Temp Pulse Resp BP Pulse Ox 98.6 F 72 18 153/57 94 02/18/17 11:08 02/18/17 11:08 02/18/17 12:39 02/18/17 11:08 02/18/17 11:08 O/E: Morbidly obese male in NAD, sitting up in recliner, at bedside, looks less anxious HEENT: PERRLA, No JVD, MP-4 Lungs: Diminished air entry at bases, no wheeze CVS: S1, S2+, regular Abd: Obese, BS+ Ext: Trace edema Neuro: No focal defecits Laboratory Results - last 24 hr 02/17/17 02/17/17 02/18/17 16:35 20:55 07:38 POC Glucose (mg/dL) 131 H 206 H 147 H 02/18/17 11:35 POC Glucose (mg/dL) [address] chest 02/14/17- Improvement in left effusion, no significant mediastinal shift , less atlectasis of left lung CXR 02/18/17: Interval improvement in left sided effusion I/R: 72 y o morbidly obese m, former smoker with loculated lt effusion, leucocytosis, elevated CRP concerning for infectious etiology Pleural fluid cx negative, exudative effusion as per available criteria Cytology negative for malignancy, acute and chronic inflammation present On broad spectrum abx Rpt CXR showed improvement in effusion Receiving tPA and darnase while awaiting definitive management, day#2 To have f/u CT chest tomorrow VATS guided fibrinolysis if above fails
[2017-02-18] MEDS: Insulin GLARGINE(*) 1 UNITS UNIT SUBCUT SCH (16:46)
[2017-02-18] MEDS: Ondansetron INJ* 2 MG/ML VIAL IV PRN (19:42)
[2017-02-18] MEDS: CMCS Melatonin (NF) 3 MG TAB PO PRN (21:27)
[2017-02-18] MEDS: Polyethylene Glycol 3350* 17 GM PACKET PO SCH (21:28)
--- NOTE | 2017-02-18 21:53 | PN ---
Progress Note - Progress Note Date of Service: 02/18/17 Note: Surgery Progress: (late entry; patient seen ~ 1830) 2nd dose of Dornase/Alteplase given via chest tube (4 doses total given). Will d /w Dr. Olson in a.m. re: continuation of lytics x 1 more day and question of repeat CT.
[2017-02-19] MEDS: Clindamycin 600 MG IVPREMIX(* 600 MG/50 ML SDV IV SCH ×3 (00:19→17:47)
[2017-02-19] MEDS: Albuterol/Ipratropium NEB.SOL* Albuterol 2.5 MG/Ipratropium 0.5 MG 3 ML INH SCH ×3 (00:40→13:34)
[2017-02-19] MEDS: oxyCODONE/Acetamin 5/325 MG* TAB PO PRN ×3 (01:20→09:52)
[2017-02-19] MEDS: Ondansetron INJ* 2 MG/ML VIAL IV PRN ×2 (03:14→09:46)
[2017-02-19] MEDS: Heparin VIAL(*) 5000 UNITS/ML VIAL (FIVE THOUSAND) SUBCUT SCH ×3 (05:31→21:54)
[2017-02-19 06:09] LABS: Comments Flag Yes; Hematocrit 35 % (42-52); Hemoglobin 11.3 g/dl (14.0-18.0); Mean Corpuscular HGB Conc 33 g/dl (31-36); Mean Corpuscular Hemoglobin 28 pg (27-31); Mean Corpuscular Volume 86 fL (80-94); Mean Platelet Volume 8 um3 (7.4-10.4); Red Blood Count 4.05 10^6/ul (4.0-5.4); Red Cell Distribution Width 15 % (10.5-15); White Blood Count 26.3 10^3/ul (3.5-10.8)
[2017-02-19 06:11] LABS: Add Diff/Slide Review? Slide Review Added
[2017-02-19 06:20] LABS: BUN/Creatinine Ratio 17.8 (8-20); C Reactive Protein 72.16 mg/L (< 5.00); Calcium 8.5 mg/dL (8.6-10.3); EGFR Non-African American 83.2 (>60); Potassium 4.3 mmol/L (3.5-5.0)
[2017-02-19] MEDS: Insulin LISPRO* 1 UNITS UNIT SUBCUT SCH ×4 (08:19→21:26)
--- NOTE | 2017-02-19 09:51 | RAD ---
INDICATION: Evaluate loculated LEFT pleural effusion. COMPARISON: February 14, 2017 CT. TECHNIQUE: Multidetector CT images were obtained from the lung apices to the upper abdomen. Evaluation of the viscera is limited without IV contrast. REPORT: Grossly unchanged position of the peripheral LEFT chest tube. Mild interval decrease in volume of the partially loculated LEFT posterior pleural measuring approximate 12 cm transverse by 4.3 cm AP by 12 cm cephalocaudal. The chest tube is positioned more anteriorly than the loculated pleural collection. Few small foci of LEFT pleural gas noted. Associated near complete atelectasis of the LEFT lower lobe. Only trace dependent RIGHT pleural effusion. 1 cm short axis unchanged RIGHT paratracheal lymph node and similar subcarinal lymph node. Negative for cardiomegaly. Negative for pericardial effusion. Normal diameter thoracic aorta with mild calcific plaque. Tip of RIGHT upper extremity PICC at level of superior vena cava RIGHT atrial junction. Unremarkable Limited images through the upper abdomen. Negative for suspicious focal osseous lesions. IMPRESSION: Grossly unchanged position of the peripheral LEFT chest tube. Mild interval decrease in volume of the partially loculated LEFT posterior pleural measuring approximate 12 cm transverse by 4.3 cm AP by 12 cm cephalocaudal. The chest tube is positioned more anteriorly than the loculated pleural collection.
[2017-02-19] MEDS: NS 0.9% 1000 ML* 1,000 ML IV SCH (12:53)
[2017-02-19] MEDS: Alteplase (CATHFLO)* 10 MG in NS 0.9% 50 ML* 40 ML INTRAPLEUR SCH ×2 (13:38→20:23)
[2017-02-19] MEDS: Polyethylene Glycol 3350* 17 GM PACKET PO SCH ×2 (13:38→20:23)
[2017-02-19] MEDS: Aspirin TAB* 325 MG PO SCH (13:38)
[2017-02-19] MEDS: DORNASE ALFA 1 mg/ml(NF) 5 MG in NS 0.9% 50 ML* 45 ML INTRAPLEUR SCH ×2 (13:39→20:23)
[2017-02-19] MEDS ORDERED: fentaNYL* 50 MCG/ML 2 ML VIAL (100 MCG VIAL) ONE ×2 (14:04→15:15)
[2017-02-19] MEDS: Pramipexole TAB* 0.125 MG PO SCH ×2 (15:21→20:21)
--- NOTE | 2017-02-19 17:01 | RAD ---
CPT II Codes: 6100F INDICATION: Loculated left-sided pleural effusion in the presence of a left-sided chest tube. COMPARISON: CT of the chest February 19, 2017 ANESTHESIA: 1% lidocaine injected locally. The patient received intravenous fentanyl. Cardiopulmonary status was monitored by Dr. Christianson and the IR nurse. PROCEDURE NOTE: The benefits and risks of procedure explained to the patient and the patient signed informed consent. Multiple images of the left hemithorax and posterior left lung base pleural collection were obtained. The heterogeneously echogenic collection in the pleural space was identified and a percutaneous tract was determined. A time out was performed before beginning the procedure. The patient was prepped and draped in the usual sterile fashion. The skin and tissue overlying the fluid collection were anesthetized with 1% lidocaine. Percutaneously, an 8 Malagasy pigtail drain was inserted into the collection under sonographic guidance according to the trocar technique. The drainage tube was secured to the skin and dressed with sterile gauze. The tube was attached to a three-way stopcock valves and drainage bag. The post procedure ultrasound demonstrates the drain in appropriate position and no evidence for hematoma. The patient tolerated procedure well without incident. IMPRESSION: Uncomplicated ultrasound-guided placement of a 8 Malagasy pigtail drainage catheter into the left posterior loculated pleural collection.
--- NOTE | 2017-02-19 17:08 | PN ---
Subjective Date of Service: 02/19/17 Interval History: Patient had N/V last night, slept poorly and is still tired at 5 PM. He also had a pigtail catheter inserted in pleural space this afternoon. Objective Active Medications: Al Hydrox/Mg Hydrox/Simethicone (Maalox Plus*) 30 ml PO Q4H PRN PRN Reason: HEARTBURN Last Admin: 02/16/17 04:57 Dose: 30 ml Albuterol/Ipratropium (Duoneb (Albuterol 2.5 Mg/Ipratropium 0.5 Mg)) 1 neb INH Q6H PRN PRN Reason: sob/wheexing Aspirin (Aspirin Tab*) 325 mg PO DAILY [facility] Last Admin: 02/19/17 13:38 Dose: Not Given Atorvastatin Calcium (Lipitor*) 10 mg PO DAILY [facility] Last Admin: 02/18/17 08:40 Dose: 10 mg Dextrose (D50w Syringe 50 Ml*) 12.5 gm IV PUSH .FOR FS < 60 - SS PRN PRN Reason: FS < 60 Heparin Sodium (Porcine) (Heparin Vial(*)) 5,000 units SUBCUT Q8HR [facility] Last Admin: 02/19/17 05:31 Dose: 5,000 units Heparin Sodium (Porcine) (Heparin Flush Picc/Ml/Cvc(*)) 0 ml FLUSH 0600,1800 [facility] Last Admin: 02/19/17 05:26 Dose: 2 ml Ceftriaxone Sodium 2 gm/ (Sodium Chloride) 100 mls @ 200 mls/hr IVPB Q24H [facility] Last Admin: 02/18/17 21:40 Dose: 200 mls/hr Clindamycin HCl/Dextrose (Cleocin 600 Mg Ivpremix(*) Sdv) 600 mg in 50 mls @ 100 mls/hr IV Q8H [facility] Last Admin: 02/19/17 09:50 Dose: 100 mls/hr Sodium Chloride (Ns 0.9% 1000 Ml*) 1,000 mls @ 40 mls/hr IV PER RATE [facility] Last Admin: 02/19/17 12:53 Dose: 40 mls/hr Dornase Samson 5 mg/ Sodium (Chloride) 50 mls @ 0 mls/hr INTRAPLEUR BID [facility] PRN Reason: As Directed Stop: 02/19/17 21:01 Last Admin: 02/19/17 13:39 Dose: Not Given Alteplase, Recombinant 10 mg/ (Sodium Chloride) 50 mls @ 0 mls/hr INTRAPLEUR BID [facility] PRN Reason: As Directed Stop: 02/19/17 21:01 Last Admin: 02/19/17 13:38 Dose: Not Given Insulin Glargine (Lantus(*)) 18 units SUBCUT Q24H [facility] Last Admin: 02/18/17 16:46 Dose: 18 units Insulin Human Lispro (Humalog*) 0 units SUBCUT ACHS [facility] PRN Reason: Protocol Last Admin: 02/19/17 12:50 Dose: 2 unit Lisinopril (Prinivil Tab*) 20 mg PO DAILY [facility] Last Admin: 02/18/17 08:39 Dose: 20 mg Magnesium Oxide (Magox 400 Tab*) 800 mg PO DAILY [facility] Last Admin: 02/18/17 08:39 Dose: 800 mg Melatonin (Melatonin (Nf)) 3 mg PO BEDTIME PRN PRN Reason: INSOMNIA Last Admin: 02/18/17 21:27 Dose: 3 mg Morphine Sulfate (Morphine Inj (Syringe)*) 4 mg IV Q2H PRN PRN Reason: PAIN Ondansetron HCl (Zofran Inj*) 4 mg IV Q2H PRN PRN Reason: NAUSEA Last Admin: 02/19/17 09:46 Dose: 4 mg Oxycodone/Acetaminophen (Percocet 5/325 Tab*) 1 tab PO Q4H PRN PRN Reason: PAIN Last Admin: 02/19/17 09:52 Dose: 1 tab Polyethylene Glycol/Electrolytes (Miralax*) 17 gm PO 0800,2100 [facility] Last Admin: 02/19/17 13:38 Dose: Not Given Pramipexole Dihydrochloride (Mirapex Tab*) 0.125 mg PO BID [facility] Last Admin: 02/19/17 15:21 Dose: Not Given Promethazine HCl (Phenergan Inj(Restricted)*) 25 mg IM Q6H PRN PRN Reason: NAUSEA/VOMITING Last Admin: 02/14/17 11:41 Dose: 25 mg Vital Signs 02/18/17 02/18/17 02/18/17 19:14 20:00 20:01 Temperature 98.9 F Pulse Rate 73 79 Respiratory 18 18 19 Rate Blood Pressure 189/80 (mmHg) O2 Sat by Pulse 91 96 Oximetry 02/18/17 02/18/17 02/18/17 21:26 23:26 23:37 Temperature 98.1 F Pulse Rate 73 Respiratory 20 14 16 Rate Blood Pressure 131/90 (mmHg) O2 Sat by Pulse 96 Oximetry 02/19/17 02/19/17 02/19/17 00:40 01:20 03:20 Temperature Pulse Rate 71 Respiratory 16 18 18 Rate Blood Pressure (mmHg) O2 Sat by Pulse 95 Oximetry 02/19/17 02/19/17 02/19/17 03:28 03:30 05:30 Temperature 99.2 F Pulse Rate 89 88 Respiratory 18 18 Rate Blood Pressure 92/42 111/57 (mmHg) O2 Sat by Pulse 94 93 Oximetry 02/19/17 02/19/17 02/19/17 07:30 08:20 08:23 Temperature 98.3 F Pulse Rate 79 Respiratory 16 20 16 Rate Blood Pressure 109/57 (mmHg) O2 Sat by Pulse 95 Oximetry 02/19/17 02/19/17 02/19/17 09:52 09:59 11:52 Temperature Pulse Rate Respiratory 16 16 16 Rate Blood Pressure (mmHg) O2 Sat by Pulse Oximetry 02/19/17 13:53 Temperature 98.4 F Pulse Rate 106 Respiratory 22 Rate Blood Pressure 127/61 (mmHg) O2 Sat by Pulse 98 Oximetry Oxygen Devices in Use Now: Nasal Cannula Appearance: Alert, supine in bed. Looks tired, otherwise comfortable. Respiratory: - - Lungs clear anteriorly Cardiovascular: NL Sounds; No Murmurs; No JVD, RRR, No Edema, - Extremities: No Edema, No Clubbing, Cyanosis, - Skin: No Rash or Ulcers, No Nodules or Sclerosis, - Neurological: Alert and Oriented x 3, NL Sensation Result Diagrams: 02/19/17 05:25 02/19/17 05:25 Additional Lab and Data: Lab Results 02/12/17 02/12/17 02/12/17 Range/Units 13:10 13:10 13:10 WBC 19.8 H (3.5-10.8) 10^3/ul RBC 4.35 (4.0-5.4) 10^6/ul Hgb 12.2 L (14.0-18.0) g/dl Hct 37 L (42-52) % MCV 85 (80-94) fL MCH 28 (27-31) pg MCHC 33 (31-36) g/dl RDW 15 (10.5-15) % Plt Count 531 H (150-450) 10^3/ul MPV 8 (7.4-10.4) um3 Neut % (Auto) 86.2 H (38-83) % Lymph % (Auto) 5.1 L (25-47) % [place] % (Auto) 7.3 (1-9) % Eos % (Auto) 0.3 (0-6) % Baso % (Auto) 1.1 (0-2) % Absolute Neuts (auto) 17.1 H (1.5-7.7) 10^3/ul Absolute Lymphs (auto) 1.0 (1.0-4.8) 10^3/ul Absolute Monos (auto) 1.4 H (0-0.8) 10^3/ul Absolute Eos (auto) 0.1 (0-0.6) 10^3/ul Absolute Basos (auto) 0.2 (0-0.2) 10^3/ul Absolute Nucleated RBC 0.01 10^3/ul Nucleated RBC % 0 INR (Anticoag Therapy) 1.19 H (0.89-1.11) APTT 26.8 (26.0-36.3) seconds D-Dimer, Quantitative > 1050 H (Less Than 230) ng/mL Sodium 132 L (133-145) mmol/L Potassium 4.5 (3.5-5.0) mmol/L Chloride 97 L (101-111) mmol/L Carbon Dioxide 25 (22-32) mmol/L Anion Gap 10 (2-11) mmol/L BUN 59 H (6-24) mg/dL Creatinine 1.86 H (0.67-1.17) mg/dL Est GFR ( Amer) 46.3 (>60) Est GFR (Non-Af Amer) 36.0 (>60) BUN/Creatinine Ratio 31.7 H (8-20) Glucose 163 H (70-100) mg/dL Lactic Acid (0.5-2.0) mmol/L Calcium 9.5 (8.6-10.3) mg/dL Magnesium 2.9 H (1.9-2.7) mg/dL Total Bilirubin 0.50 (0.2-1.0) mg/dL AST 20 (13-39) U/L ALT 26 (7-52) U/L Alkaline Phosphatase 93 (34-104) U/L Total Creatine Kinase 107 (10-223) U/L CK-MB (CK-2) 8.5 H (0.6-6.3) ng/mL Troponin I 0.34 H* (<0.04) ng/mL C-Reactive Protein 459.29 H (< 5.00) mg/L B-Natriuretic Peptide ( - 100) pg/mL Total Protein 7.6 (6.4-8.9) g/dL Albumin 3.3 (3.2-5.2) g/dL Globulin 4.3 H (2-4) g/dL Albumin/Globulin Ratio 0.8 L (1-3) Lipase < 10 L (11.0-82.0) U/L TSH 0.69 (0.34-5.60) mcIU/mL Urine Color Urine Appearance Urine pH (5-9) Ur Specific [place] (1.010-1.030) Urine Protein (Negative) Urine Ketones (Negative) Urine Blood (Negative) Urine Nitrate (Negative) Urine Bilirubin (Negative) Urine Urobilinogen (Negative) Ur Leukocyte Esterase (Negative) Urine WBC (Auto) (Absent) Urine RBC (Auto) (Absent) Ur Squamous Epith Cells (Absent) Urine Bacteria (Absent) Urine Glucose (Negative) 02/12/17 02/12/17 02/12/17 Range/Units 13:10 13:10 14:00 WBC (3.5-10.8) 10^3/ul RBC (4.0-5.4) 10^6/ul Hgb (14.0-18.0) g/dl Hct (42-52) % MCV (80-94) fL MCH (27-31) pg MCHC (31-36) g/dl RDW (10.5-15) % Plt Count (150-450) 10^3/ul MPV (7.4-10.4) um3 Neut % (Auto) (38-83) % Lymph % (Auto) (25-47) % [place] % (Auto) (1-9) % Eos % (Auto) (0-6) % Baso % (Auto) (0-2) % Absolute Neuts (auto) (1.5-7.7) 10^3/ul Absolute Lymphs (auto) (1.0-4.8) 10^3/ul Absolute Monos (auto) (0-0.8) 10^3/ul Absolute Eos (auto) (0-0.6) 10^3/ul Absolute Basos (auto) (0-0.2) 10^3/ul Absolute Nucleated RBC 10^3/ul Nucleated RBC % INR (Anticoag Therapy) (0.89-1.11) APTT (26.0-36.3) seconds D-Dimer, Quantitative (Less Than 230) ng/mL Sodium (133-145) mmol/L Potassium (3.5-5.0) mmol/L Chloride (101-111) mmol/L Carbon Dioxide (22-32) mmol/L Anion Gap (2-11) mmol/L BUN (6-24) mg/dL Creatinine (0.67-1.17) mg/dL Est GFR ( Amer) (>60) Est GFR (Non-Af Amer) (>60) BUN/Creatinine Ratio (8-20) Glucose (70-100) mg/dL Lactic Acid 1.2 (0.5-2.0) mmol/L Calcium (8.6-10.3) mg/dL Magnesium (1.9-2.7) mg/dL Total Bilirubin (0.2-1.0) mg/dL AST (13-39) U/L ALT (7-52) U/L Alkaline Phosphatase (34-104) U/L Total Creatine Kinase (10-223) U/L CK-MB (CK-2) (0.6-6.3) ng/mL Troponin I (<0.04) ng/mL C-Reactive Protein (< 5.00) mg/L B-Natriuretic Peptide 412 H ( - 100) pg/mL Total Protein (6.4-8.9) g/dL Albumin (3.2-5.2) g/dL Globulin (2-4) g/dL Albumin/Globulin Ratio (1-3) Lipase (11.0-82.0) U/L TSH (0.34-5.60) mcIU/mL Urine Color Yellow Urine Appearance Clear Urine pH 5.0 (5-9) Ur Specific [place] 1.017 (1.010-1.030) Urine Protein 1+(30 mg/dl) H (Negative) Urine Ketones Negative (Negative) Urine Blood Negative (Negative) Urine Nitrate Negative (Negative) Urine Bilirubin Negative (Negative) Urine Urobilinogen Negative (Negative) Ur Leukocyte Esterase Negative (Negative) Urine WBC (Auto) Trace(0-5/hpf) (Absent) Urine RBC (Auto) Trace(0-2/hpf) (Absent) Ur Squamous Epith Cells Present H (Absent) Urine Bacteria Absent (Absent) Urine Glucose Negative (Negative) Microbiology and Other Data: Microbiology 02/12/17 14:44 Aerobic Blood Culture - Preliminary Blood Venous No Growth Day 4 Anaerobic Blood Culture - Preliminary No Growth Day 4 Blood Culture - Final 02/12/17 18:00 Gram Stain - Final Pleural Fluid Body Fluid Culture - Preliminary No Growth Day 3 02/13/17 08:11 Aerobic Blood Culture - Preliminary Blood Venous No Growth Day 3 Anaerobic Blood Culture - Preliminary No Growth Day 3 Blood Culture - Final 02/13/17 08:02 Aerobic Blood Culture - Preliminary Blood Venous No Growth Day 3 Anaerobic Blood Culture - Preliminary No Growth Day 3 Blood Culture - Final 02/12/17 20:13 Gram Stain - Final Sputum Sputum Culture - Final Normal Tita 02/12/17 15:30 Nasal Screen MRSA (PCR)(AMAYA) - Final Nasal Mrsa Negative 02/12/17 16:59 Legionella Urinary Antigen - Final Urine Negative Legionella Streptococcus pneumoniae Ag Screen - Final Negative S. pneumo Antigen Assess/Plan/Problems-Billing Assessment: - Patient Problems (1) Pleural effusion Current Visit: Yes Status: Acute Code(s): J90 - PLEURAL EFFUSION, NOT ELSEWHERE CLASSIFIED SNOMED Code(s): 61175605 Comment: Neg cytology, only 595 WBC's. Note CRP >400. C&S neg. Continue ceftriaxone and clindamycin. ID and pulmonology consults appreciated. Dornase injected in CT by HAKEEM Mitchell, plan is to give bid x [address] scan [address] Dr. Olson to inject thrombolytic into pigtail catheter 02/19. (2) Diabetes Current Visit: Yes Status: Acute Code(s): E11.9 - TYPE 2 DIABETES MELLITUS WITHOUT COMPLICATIONS SNOMED Code(s): 99412937 Comment: Continue to hold metformin. FS max 165 last 6 checks on 02/17. Continue Lispro coverage and increased dose of Lantus 18 U daily started 02/18 4 PM. (3) HTN (hypertension) Current Visit: Yes Status: Acute Code(s): I10 - ESSENTIAL (PRIMARY) HYPERTENSION SNOMED Code(s): 88161679 Comment: Continue lisinopril 20 mg daily, d/c clonidine 02/18. He seems more alert on lower dose clonidine. BP 127/61 02/19 13:53. (4) Morbid obesity Current Visit: Yes Status: Acute Code(s): E66.01 - MORBID (SEVERE) OBESITY DUE TO EXCESS CALORIES SNOMED Code(s): 730358378 Comment: BMI 48.7 (5) Chronic pain Current Visit: Yes Status: Acute Code(s): G89.29 - OTHER CHRONIC PAIN SNOMED Code(s): 57221434 Comment: Both patient and family expressed concern about over-use of opiates for his chronic pain. He seems less sedated 02/17. Continue oxycodone/APAP 5/ 325 1 q 4 hr PRN.
[2017-02-19] MEDS: Morphine INJ* 4 MG/ML 1 ML SYRINGE IV PRN ×3 (17:12→23:38)
[2017-02-19] MEDS: Atorvastatin* 10 MG TAB PO SCH (17:15)
[2017-02-19] MEDS: Lisinopril TAB* 10 MG PO SCH (17:16)
[2017-02-19] MEDS: Magnesium Oxide TAB* 400 MG PO SCH (17:16)
[2017-02-19] MEDS: Insulin GLARGINE(*) 1 UNITS UNIT SUBCUT SCH (17:45)
--- NOTE | 2017-02-19 17:51 | RAD ---
INDICATION: Status post left-sided chest tube placement COMPARISON: Portable chest x-ray dated February 18, 2017 TECHNIQUE: PA and lateral views of the chest were obtained. FINDINGS: A right-sided central line terminates at the cavoatrial junction. On the AP view of the chest the large bore chest tube appears to terminate immediately lateral to the lateral left lower ribs. There has been interval placement of an 8-[place] catheter overlying the posterior lateral left pleural space. There is persistent density obscuring the left lower lung and left hemidiaphragm similar in appearance to the previous chest x-ray. The right lung is adequately aerated. There is no readily visible pneumothorax or mediastinal shift. IMPRESSION: 1. INTERVAL PLACEMENT OF A 8-[place] PLEURAL SPACE CHEST TUBE OVERLYING THE LEFT POSTERIOR LATERAL HEMITHORAX. 2. THE LARGE BORE CHEST TUBE APPEARS TO HAVE BEEN RETRACTED AND TERMINATES OUTSIDE THE THORACIC CAVITY. THESE FINDINGS, ESPECIALLY THE POSITION OF THE LARGE BORE CHEST TUBE WERE COMMUNICATED TO DR. BREWER OVER THE TELEPHONE AT 1747 HOURS ON FEBRUARY 19, 2017.
[2017-02-19] MEDS ORDERED: DORNASE ALFA 1 mg/ml(NF) 5 MG in NS 0.9% 50 ML* 45 ML INTRAPLEUR SCH (18:00)
[2017-02-19] MEDS ORDERED: Alteplase* 100 MG VIAL SCH (18:00)
--- NOTE | 2017-02-19 18:36 | PN ---
Progress Note - Progress Note Date of Service: 02/19/17 - Pulm f/u Note: Pt seen and examined at bedside. Reports slight improvement in breathing, no new complaints Active Medications Generic Name Dose Route Start Last Admin Trade Name Freq PRN Reason Stop Dose Admin Al Hydrox/Mg Hydrox/Simethicone 30 ml 02/13/17 12:07 02/16/17 04:57 Maalox Plus* PO 30 ml Q4H PRN Administration HEARTBURN Albuterol/Ipratropium 1 neb 02/12/17 14:47 Duoneb (Albuterol 2.5 Mg/Ipratropium 0.5 Mg) INH Q6H PRN sob/wheexing Aspirin 325 mg 02/13/17 09:00 02/19/17 13:38 Aspirin Tab* PO Not Given DAILY [facility] Atorvastatin Calcium 10 mg 02/13/17 09:00 02/19/17 17:15 Lipitor* PO Not Given DAILY [facility] Dextrose 12.5 gm 02/12/17 15:28 D50w Syringe 50 Ml* IV PUSH .FOR FS < 60 - SS PRN FS < 60 Heparin Sodium (Porcine) 5,000 units 02/12/17 22:00 02/19/17 17:32 Heparin Vial(*) SUBCUT Not Given Q8HR [facility] Heparin Sodium (Porcine) 0 ml 02/13/17 18:00 02/19/17 17:53 Heparin Flush Picc/Ml/Cvc(*) FLUSH Not Given 0600,1800 [facility] Ceftriaxone Sodium 2 gm/ 100 mls @ 200 mls/hr 02/13/17 21:00 02/18/17 21:40 Sodium Chloride IVPB 200 mls/hr Q24H [facility] Administration Clindamycin HCl/Dextrose 600 mg in 50 mls @ 100 mls/hr 02/13/17 17:00 17:47 Cleocin 600 Mg Ivpremix(*) Sdv IV 100 mls/hr Q8H [facility] Administration Sodium Chloride 1,000 mls @ 40 mls/hr 02/16/17 15:10 02/19/17 12:53 Ns 0.9% 1000 Ml* IV 40 mls/hr PER RATE [facility] Administration Dornase Samson 5 mg/ Sodium 50 mls @ 0 mls/hr 02/17/17 09:00 02/19/17 13:39 Chloride INTRAPLEUR 02/20/17 21:01 Not Given BID [facility] As Directed Alteplase, Recombinant 10 mg/ 50 mls @ 0 mls/hr 02/17/17 09:00 02/19/17 13:38 Sodium Chloride INTRAPLEUR 02/20/17 21:01 Not Given BID [facility] As Directed Insulin Glargine 18 units 02/18/17 16:00 02/19/17 17:45 Lantus(*) SUBCUT 18 units Q24H [facility] Administration Insulin Human Lispro 0 units 02/16/17 15:22 02/19/17 17:42 Humalog* SUBCUT Not Given ACHS [facility] Protocol Lisinopril 20 mg 02/18/17 09:00 02/19/17 17:16 Prinivil Tab* PO Not Given DAILY [facility] Magnesium Oxide 800 mg 02/13/17 09:00 02/19/17 17:16 Magox 400 Tab* PO Not Given DAILY [facility] Melatonin 3 mg 02/18/17 20:36 02/18/17 21:27 Melatonin (Nf) PO 3 mg BEDTIME PRN Administration INSOMNIA Morphine Sulfate 4 mg 02/19/17 13:27 02/19/17 17:12 Morphine Inj (Syringe)* IV 4 mg Q2H PRN Administration PAIN Ondansetron HCl 4 mg 02/13/17 10:51 02/19/17 09:46 Zofran Inj* IV 4 mg Q2H PRN Administration NAUSEA Oxycodone/Acetaminophen 1 tab 02/16/17 15:19 02/19/17 09:52 Percocet 5/325 Tab* PO 1 tab Q4H PRN Administration PAIN Polyethylene Glycol/Electrolytes 17 gm 02/18/17 21:00 02/19/17 13:38 Miralax* PO Not Given 0800,2100 [facility] Pramipexole Dihydrochloride 0.125 mg 02/12/17 21:00 02/19/17 15:21 Mirapex Tab* PO Not Given BID [facility] Promethazine HCl 25 mg 02/14/17 11:20 02/14/17 11:41 Phenergan Inj(Restricted)* IM 25 mg Q6H PRN Administration NAUSEA/VOMITING Vital Signs Temp Pulse Resp BP Pulse Ox 98.4 F 106 16 127/61 98 02/19/17 13:53 02/19/17 13:53 02/19/17 18:12 02/19/17 13:53 02/19/17 13:53 O/E: Morbidly obese male in NAD, sitting up in recliner, chest tube draining HEENT: PERRLA, No JVD, MP-4 Lungs: Diminished air entry at bases, no wheeze, no redness around insertion site CVS: S1, S2+, regular Abd: Obese, BS+ Ext: Trace edema Neuro: No focal defecits Laboratory Results - last 24 hr 02/18/17 02/19/17 02/19/17 21:03 05:25 05:25 WBC 26.3 H RBC 4.05 Hgb 11.3 L Hct 35 L MCV 86 MCH 28 MCHC 33 RDW 15 Plt Count 371 MPV 8 Neut % (Auto) 96.4 H Lymph % (Auto) 1.4 L [place] % (Auto) 1.4 Eos % (Auto) 0.6 Baso % (Auto) 0.2 Absolute Neuts (auto) 25.4 H Absolute Lymphs (auto) 0.4 L Absolute Monos (auto) 0.4 Absolute Eos (auto) 0.2 Absolute Basos (auto) 0.1 Absolute Nucleated RBC 0 Nucleated RBC % 0 Sodium 132 L Potassium 4.3 Chloride 103 Carbon Dioxide 25 Anion Gap 4 BUN 16 Creatinine 0.90 Est GFR ( Amer) 107.0 Est GFR (Non-Af Amer) 83.2 BUN/Creatinine Ratio 17.8 Glucose 140 H POC Glucose (mg/dL) 181 H Calcium 8.5 L C-Reactive Protein 72.16 H 02/19/17 02/19/17 07:42 11:22 WBC RBC Hgb Hct MCV MCH MCHC RDW Plt Count MPV Neut % (Auto) Lymph % (Auto) [place] % (Auto) Eos % (Auto) Baso % (Auto) Absolute Neuts (auto) Absolute Lymphs (auto) Absolute Monos (auto) Absolute Eos (auto) Absolute Basos (auto) Absolute Nucleated RBC Nucleated RBC % Sodium Potassium Chloride Carbon Dioxide Anion Gap BUN Creatinine Est GFR ( Amer) Est GFR (Non-Af Amer) BUN/Creatinine Ratio Glucose POC Glucose (mg/dL) 195 H 149 H Calcium C-Reactive Protein CT chest 02/14/17- Improvement in left effusion, no significant mediastinal shift , less atlectasis of left lung CXR 02/18/17: Interval improvement in left sided effusion CT chest 02/19, was personally reviewed- Improvement in loculated effusion, with posteriorly loculated small effusion I/R: 72 y o morbidly obese m, former smoker with loculated lt effusion, leucocytosis, elevated CRP concerning for infectious etiology Pleural fluid cx negative, exudative effusion as per available criteria Cytology negative for malignancy, acute and chronic inflammation present On broad spectrum abx Rpt CT chest showed improvement in effusion, posteriorly placed loculated effusion not being drained Received tPA and darnase
[2017-02-19] MEDS: CMCS Melatonin (NF) 3 MG TAB PO PRN (20:21)
[2017-02-20] MEDS: Clindamycin 600 MG IVPREMIX(* 600 MG/50 ML SDV IV SCH ×3 (01:04→16:46)
[2017-02-20] MEDS: oxyCODONE/Acetamin 5/325 MG* TAB PO PRN ×3 (02:05→22:12)
[2017-02-20] MEDS: Heparin VIAL(*) 5000 UNITS/ML VIAL (FIVE THOUSAND) SUBCUT SCH ×3 (06:03→21:42)
[2017-02-20] MEDS: NS 0.9% 1000 ML* 1,000 ML IV SCH (06:05)
[2017-02-20] MEDS: Morphine INJ* 4 MG/ML 1 ML SYRINGE IV PRN ×6 (06:09→19:48)
[2017-02-20] MEDS: Polyethylene Glycol 3350* 17 GM PACKET PO SCH ×2 (07:33→21:49)
[2017-02-20] MEDS: Alteplase (CATHFLO)* 10 MG in NS 0.9% 50 ML* 40 ML INTRAPLEUR SCH ×2 (07:51→19:10)
[2017-02-20] MEDS: DORNASE ALFA 1 mg/ml(NF) 5 MG in NS 0.9% 50 ML* 45 ML INTRAPLEUR SCH ×2 (07:51→19:11)
[2017-02-20] MEDS: Pramipexole TAB* 0.125 MG PO SCH ×2 (08:14→21:40)
[2017-02-20] MEDS: Magnesium Oxide TAB* 400 MG PO SCH (08:14)
[2017-02-20] MEDS: Atorvastatin* 10 MG TAB PO SCH (08:14)
[2017-02-20] MEDS: Lisinopril TAB* 10 MG PO SCH (08:14)
[2017-02-20] MEDS: Aspirin TAB* 325 MG PO SCH (08:14)
[2017-02-20] MEDS: Insulin LISPRO* 1 UNITS UNIT SUBCUT SCH ×4 (08:57→21:40)
--- NOTE | 2017-02-20 10:22 | PN ---
Progress Note - Progress Note Date of Service: 02/20/17 SOAP: Subjective:loculated Left pleural effusion feels a little better,less dyspneic [] Objective:lungs:diminished bs bases,few wheezes Vital Signs 02/20/17 02/20/17 02/20/17 03:39 04:05 06:09 Temperature 98.1 F Pulse Rate 65 Respiratory 16 18 16 Rate Blood Pressure 106/48 (mmHg) O2 Sat by Pulse 96 Oximetry 02/20/17 02/20/17 02/20/17 07:09 07:36 08:00 Temperature 98.5 F Pulse Rate 70 Respiratory 18 18 18 Rate Blood Pressure 137/56 (mmHg) O2 Sat by Pulse 93 Oximetry 02/20/17 02/20/17 02/20/17 08:12 09:12 10:11 Temperature Pulse Rate Respiratory 18 20 18 Rate Blood Pressure (mmHg) O2 Sat by Pulse Oximetry [] Assessment:Loculated left pleural effusion,less dyspnea,afebrile [] Plan: fibrinolytics instilled into percutaneous drain at 1000 this morning,will repeat this afternoon and 9/2 am Left chest tube removed,occlusive dressing placed []
[2017-02-20] MEDS ORDERED: Alteplase (CATHFLO)* 2 MG VIAL IV PRN (13:01)
[2017-02-20] MEDS: Insulin GLARGINE(*) 1 UNITS UNIT SUBCUT SCH (17:08)
--- NOTE | 2017-02-20 17:59 | PN ---
Subjective Date of Service: 02/20/17 Interval History: Using IV morphine regularly. Last BM yesterday. Appetite better today. No cough, SOB. Objective Active Medications: Al Hydrox/Mg Hydrox/Simethicone (Maalox Plus*) 30 ml PO Q4H PRN PRN Reason: HEARTBURN Last Admin: 02/16/17 04:57 Dose: 30 ml Albuterol/Ipratropium (Duoneb (Albuterol 2.5 Mg/Ipratropium 0.5 Mg)) 1 neb INH Q6H PRN PRN Reason: sob/wheexing Alteplase, Recombinant (Cathflo Activase*) 2 mg IV Q24H PRN PRN Reason: poor PICC flow Aspirin (Aspirin Tab*) 325 mg PO DAILY [facility] Last Admin: 02/20/17 08:14 Dose: 325 mg Atorvastatin Calcium (Lipitor*) 10 mg PO DAILY [facility] Last Admin: 02/20/17 08:14 Dose: 10 mg Dextrose (D50w Syringe 50 Ml*) 12.5 gm IV PUSH .FOR FS < 60 - SS PRN PRN Reason: FS < 60 Heparin Sodium (Porcine) (Heparin Vial(*)) 5,000 units SUBCUT Q8HR [facility] Last Admin: 02/20/17 13:52 Dose: 5,000 units Heparin Sodium (Porcine) (Heparin Flush Picc/Ml/Cvc(*)) 0 ml FLUSH 0600,1800 [facility] Last Admin: 02/20/17 17:08 Dose: 1 ml Ceftriaxone Sodium 2 gm/ (Sodium Chloride) 100 mls @ 200 mls/hr IVPB Q24H [facility] Last Admin: 02/19/17 21:19 Dose: 200 mls/hr Clindamycin HCl/Dextrose (Cleocin 600 Mg Ivpremix(*) Sdv) 600 mg in 50 mls @ 100 mls/hr IV Q8H [facility] Last Admin: 02/20/17 16:46 Dose: 100 mls/hr Sodium Chloride (Ns 0.9% 1000 Ml*) 1,000 mls @ 40 mls/hr IV PER RATE [facility] Last Admin: 02/20/17 06:05 Dose: 40 mls/hr Dornase Samson 5 mg/ Sodium (Chloride) 50 mls @ 0 mls/hr INTRAPLEUR BID [facility] PRN Reason: As Directed Stop: 02/21/17 09:01 Last Admin: 02/20/17 07:51 Dose: Not Given Alteplase, Recombinant 10 mg/ (Sodium Chloride) 50 mls @ 0 mls/hr INTRAPLEUR BID [facility] PRN Reason: As Directed Stop: 02/21/17 09:01 Last Admin: 02/20/17 07:51 Dose: Not Given Insulin Glargine (Lantus(*)) 18 units SUBCUT Q24H [facility] Last Admin: 02/20/17 17:08 Dose: 18 units Insulin Human Lispro (Humalog*) 0 units SUBCUT ACHS [facility] PRN Reason: Protocol Last Admin: 02/20/17 16:59 Dose: Not Given Lisinopril (Prinivil Tab*) 20 mg PO DAILY [facility] Last Admin: 02/20/17 08:14 Dose: 20 mg Magnesium Oxide (Magox 400 Tab*) 800 mg PO DAILY [facility] Last Admin: 02/20/17 08:14 Dose: 800 mg Melatonin (Melatonin (Nf)) 3 mg PO BEDTIME PRN PRN Reason: INSOMNIA Last Admin: 02/19/17 20:21 Dose: 3 mg Morphine Sulfate (Morphine Inj (Syringe)*) 4 mg IV Q2H PRN PRN Reason: PAIN Last Admin: 02/20/17 16:46 Dose: 4 mg Ondansetron HCl (Zofran Inj*) 4 mg IV Q2H PRN PRN Reason: NAUSEA Last Admin: 02/19/17 09:46 Dose: 4 mg Oxycodone/Acetaminophen (Percocet 5/325 Tab*) 1 tab PO Q4H PRN PRN Reason: PAIN Last Admin: 02/20/17 02:05 Dose: 1 tab Polyethylene Glycol/Electrolytes (Miralax*) 17 gm PO 0800,2100 [facility] Last Admin: 02/20/17 07:33 Dose: Not Given Pramipexole Dihydrochloride (Mirapex Tab*) 0.125 mg PO BID [facility] Last Admin: 02/20/17 08:14 Dose: 0.125 mg Promethazine HCl (Phenergan Inj(Restricted)*) 25 mg IM Q6H PRN PRN Reason: NAUSEA/VOMITING Last Admin: 02/14/17 11:41 Dose: 25 mg Vital Signs 02/19/17 02/19/17 02/19/17 18:12 19:30 19:33 Temperature Pulse Rate Respiratory 16 17 17 Rate Blood Pressure (mmHg) O2 Sat by Pulse Oximetry 02/19/17 02/19/17 02/19/17 19:55 20:20 21:20 Temperature 98.0 F Pulse Rate 72 Respiratory 18 17 16 Rate Blood Pressure 118/47 (mmHg) O2 Sat by Pulse 96 Oximetry 02/19/17 02/19/17 02/20/17 23:33 23:38 00:12 Temperature 98.5 F 98.5 F Pulse Rate 66 66 Respiratory 18 16 18 Rate Blood Pressure 155/69 155/69 (mmHg) O2 Sat by Pulse 97 97 Oximetry 02/20/17 02/20/17 02/20/17 00:38 02:05 03:39 Temperature 98.1 F Pulse Rate 65 Respiratory 17 17 16 Rate Blood Pressure 106/48 (mmHg) O2 Sat by Pulse 96 Oximetry 02/20/17 02/20/17 02/20/17 04:05 06:09 07:09 Temperature Pulse Rate Respiratory 18 16 18 Rate Blood Pressure (mmHg) O2 Sat by Pulse Oximetry 02/20/17 02/20/17 02/20/17 07:36 08:00 08:12 Temperature 98.5 F Pulse Rate 70 Respiratory 18 18 18 Rate Blood Pressure 137/56 (mmHg) O2 Sat by Pulse 93 Oximetry 02/20/17 02/20/17 02/20/17 09:12 10:11 11:11 Temperature Pulse Rate Respiratory 20 18 18 Rate Blood Pressure (mmHg) O2 Sat by Pulse Oximetry 02/20/17 02/20/17 02/20/17 11:39 14:17 14:35 Temperature 97.0 F 99.0 F Pulse Rate 73 70 Respiratory 18 18 18 Rate Blood Pressure 135/61 138/57 (mmHg) O2 Sat by Pulse 93 93 Oximetry 02/20/17 16:46 Temperature Pulse Rate Respiratory 16 Rate Blood Pressure (mmHg) O2 Sat by Pulse Oximetry Oxygen Devices in Use Now: Nasal Cannula Appearance: Alert, in a chair. In good spirits. Looks comfortable. Eyes: No Scleral Icterus Neck: NL Appearance and Movements; NL JVP, No Thyroid Enlargement, Masses Respiratory: Symmetrical Chest Expansion and Respiratory Effort, Clear to Auscultation, Clear to Percussion Cardiovascular: NL Sounds; No Murmurs; No JVD, RRR, No Edema, - Extremities: No Edema, No Clubbing, Cyanosis, - Skin: No Rash or Ulcers, No Nodules or Sclerosis Neurological: Alert and Oriented x 3, NL Sensation Result Diagrams: 02/19/17 05:25 02/19/17 05:25 Additional Lab and Data: Lab Results 02/12/17 02/12/17 02/12/17 Range/Units 13:10 13:10 13:10 WBC 19.8 H (3.5-10.8) 10^3/ul RBC 4.35 (4.0-5.4) 10^6/ul Hgb 12.2 L (14.0-18.0) g/dl Hct 37 L (42-52) % MCV 85 (80-94) fL MCH 28 (27-31) pg MCHC 33 (31-36) g/dl RDW 15 (10.5-15) % Plt Count 531 H (150-450) 10^3/ul MPV 8 (7.4-10.4) um3 Neut % (Auto) 86.2 H (38-83) % Lymph % (Auto) 5.1 L (25-47) % [place] % (Auto) 7.3 (1-9) % Eos % (Auto) 0.3 (0-6) % Baso % (Auto) 1.1 (0-2) % Absolute Neuts (auto) 17.1 H (1.5-7.7) 10^3/ul Absolute Lymphs (auto) 1.0 (1.0-4.8) 10^3/ul Absolute Monos (auto) 1.4 H (0-0.8) 10^3/ul Absolute Eos (auto) 0.1 (0-0.6) 10^3/ul Absolute Basos (auto) 0.2 (0-0.2) 10^3/ul Absolute Nucleated RBC 0.01 10^3/ul Nucleated RBC % 0 INR (Anticoag Therapy) 1.19 H (0.89-1.11) APTT 26.8 (26.0-36.3) seconds D-Dimer, Quantitative > 1050 H (Less Than 230) ng/mL Sodium 132 L (133-145) mmol/L Potassium 4.5 (3.5-5.0) mmol/L Chloride 97 L (101-111) mmol/L Carbon Dioxide 25 (22-32) mmol/L Anion Gap 10 (2-11) mmol/L BUN 59 H (6-24) mg/dL Creatinine 1.86 H (0.67-1.17) mg/dL Est GFR ( Amer) 46.3 (>60) Est GFR (Non-Af Amer) 36.0 (>60) BUN/Creatinine Ratio 31.7 H (8-20) Glucose 163 H (70-100) mg/dL Lactic Acid (0.5-2.0) mmol/L Calcium 9.5 (8.6-10.3) mg/dL Magnesium 2.9 H (1.9-2.7) mg/dL Total Bilirubin 0.50 (0.2-1.0) mg/dL AST 20 (13-39) U/L ALT 26 (7-52) U/L Alkaline Phosphatase 93 (34-104) U/L Total Creatine Kinase 107 (10-223) U/L CK-MB (CK-2) 8.5 H (0.6-6.3) ng/mL Troponin I 0.34 H* (<0.04) ng/mL C-Reactive Protein 459.29 H (< 5.00) mg/L B-Natriuretic Peptide ( - 100) pg/mL Total Protein 7.6 (6.4-8.9) g/dL Albumin 3.3 (3.2-5.2) g/dL Globulin 4.3 H (2-4) g/dL Albumin/Globulin Ratio 0.8 L (1-3) Lipase < 10 L (11.0-82.0) U/L TSH 0.69 (0.34-5.60) mcIU/mL Urine Color Urine Appearance Urine pH (5-9) Ur Specific [place] (1.010-1.030) Urine Protein (Negative) Urine Ketones (Negative) Urine Blood (Negative) Urine Nitrate (Negative) Urine Bilirubin (Negative) Urine Urobilinogen (Negative) Ur Leukocyte Esterase (Negative) Urine WBC (Auto) (Absent) Urine RBC (Auto) (Absent) Ur Squamous Epith Cells (Absent) Urine Bacteria (Absent) Urine Glucose (Negative) 02/12/17 02/12/17 02/12/17 Range/Units 13:10 13:10 14:00 WBC (3.5-10.8) 10^3/ul RBC (4.0-5.4) 10^6/ul Hgb (14.0-18.0) g/dl Hct (42-52) % MCV (80-94) fL MCH (27-31) pg MCHC (31-36) g/dl RDW (10.5-15) % Plt Count (150-450) 10^3/ul MPV (7.4-10.4) um3 Neut % (Auto) (38-83) % Lymph % (Auto) (25-47) % [place] % (Auto) (1-9) % Eos % (Auto) (0-6) % Baso % (Auto) (0-2) % Absolute Neuts (auto) (1.5-7.7) 10^3/ul Absolute Lymphs (auto) (1.0-4.8) 10^3/ul Absolute Monos (auto) (0-0.8) 10^3/ul Absolute Eos (auto) (0-0.6) 10^3/ul Absolute Basos (auto) (0-0.2) 10^3/ul Absolute Nucleated RBC 10^3/ul Nucleated RBC % INR (Anticoag Therapy) (0.89-1.11) APTT (26.0-36.3) seconds D-Dimer, Quantitative (Less Than 230) ng/mL Sodium (133-145) mmol/L Potassium (3.5-5.0) mmol/L Chloride (101-111) mmol/L Carbon Dioxide (22-32) mmol/L Anion Gap (2-11) mmol/L BUN (6-24) mg/dL Creatinine (0.67-1.17) mg/dL Est GFR ( Amer) (>60) Est GFR (Non-Af Amer) (>60) BUN/Creatinine Ratio (8-20) Glucose (70-100) mg/dL Lactic Acid 1.2 (0.5-2.0) mmol/L Calcium (8.6-10.3) mg/dL Magnesium (1.9-2.7) mg/dL Total Bilirubin (0.2-1.0) mg/dL AST (13-39) U/L ALT (7-52) U/L Alkaline Phosphatase (34-104) U/L Total Creatine Kinase (10-223) U/L CK-MB (CK-2) (0.6-6.3) ng/mL Troponin I (<0.04) ng/mL C-Reactive Protein (< 5.00) mg/L B-Natriuretic Peptide 412 H ( - 100) pg/mL Total Protein (6.4-8.9) g/dL Albumin (3.2-5.2) g/dL Globulin (2-4) g/dL Albumin/Globulin Ratio (1-3) Lipase (11.0-82.0) U/L TSH (0.34-5.60) mcIU/mL Urine Color Yellow Urine Appearance Clear Urine pH 5.0 (5-9) Ur Specific [place] 1.017 (1.010-1.030) Urine Protein 1+(30 mg/dl) H (Negative) Urine Ketones Negative (Negative) Urine Blood Negative (Negative) Urine Nitrate Negative (Negative) Urine Bilirubin Negative (Negative) Urine Urobilinogen Negative (Negative) Ur Leukocyte Esterase Negative (Negative) Urine WBC (Auto) Trace(0-5/hpf) (Absent) Urine RBC (Auto) Trace(0-2/hpf) (Absent) Ur Squamous Epith Cells Present H (Absent) Urine Bacteria Absent (Absent) Urine Glucose Negative (Negative) Microbiology and Other Data: Microbiology 02/12/17 14:44 Aerobic Blood Culture - Preliminary Blood Venous No Growth Day 4 Anaerobic Blood Culture - Preliminary No Growth Day 4 Blood Culture - Final 02/12/17 18:00 Gram Stain - Final Pleural Fluid Body Fluid Culture - Preliminary No Growth Day 3 02/13/17 08:11 Aerobic Blood Culture - Preliminary Blood Venous No Growth Day 3 Anaerobic Blood Culture - Preliminary No Growth Day 3 Blood Culture - Final 02/13/17 08:02 Aerobic Blood Culture - Preliminary Blood Venous No Growth Day 3 Anaerobic Blood Culture - Preliminary No Growth Day 3 Blood Culture - Final 02/12/17 20:13 Gram Stain - Final Sputum Sputum Culture - Final Normal Tita 02/12/17 15:30 Nasal Screen MRSA (PCR)(AMAYA) - Final Nasal Mrsa Negative 02/12/17 16:59 Legionella Urinary Antigen - Final Urine Negative Legionella Streptococcus pneumoniae Ag Screen - Final Negative S. pneumo Antigen Assess/Plan/Problems-Billing Assessment: - Patient Problems (1) Pleural effusion Current Visit: Yes Status: Acute Code(s): J90 - PLEURAL EFFUSION, NOT ELSEWHERE CLASSIFIED SNOMED Code(s): 52061085 Comment: Neg cytology, only 595 WBC's. Note CRP >400. C&S neg. Continue ceftriaxone and clindamycin. ID and pulmonology consults appreciated. 4 doses Dornase injected in CT by HAKEEM Mitchell, plan is to give bid x [address] scan 02/19. Dr. Olson to inject last dose of thrombolytic into pigtail catheter in PM 02/21. Chest tube remove AM 02/20. (2) Diabetes Current Visit: Yes Status: Acute Code(s): E11.9 - TYPE 2 DIABETES MELLITUS WITHOUT COMPLICATIONS SNOMED Code(s): 01245335 Comment: Continue to hold metformin. FS max 152 last 6 checks on 02/20. Continue Lispro coverage and increased dose of Lantus 18 U daily started 02/18 4 PM. (3) HTN (hypertension) Current Visit: Yes Status: Acute Code(s): I10 - ESSENTIAL (PRIMARY) HYPERTENSION SNOMED Code(s): 68437300 Comment: Continue lisinopril 20 mg daily, d/c clonidine 02/18. He seems more alert on lower dose clonidine. BP 127/61 02/19 13:53. (4) Morbid obesity Current Visit: Yes Status: Acute Code(s): E66.01 - MORBID (SEVERE) OBESITY DUE TO EXCESS CALORIES SNOMED Code(s): 222111361 Comment: BMI 48.7 (5) Chronic pain Current Visit: Yes Status: Acute Code(s): G89.29 - OTHER CHRONIC PAIN SNOMED Code(s): 04223113 Comment: Both patient and family expressed concern about over-use of opiates for his chronic pain. He seems less sedated 02/17. Continue oxycodone/APAP 5/ 325 1 q 4 hr PRN. Continue PEG 17 gm bid--pt advised to not refuse it.
--- NOTE | 2017-02-20 18:12 | PN ---
Progress Note - Progress Note Date of Service: 02/20/17 Note: Surgery Progress: 2nd dose of Alteplase/Dornase given via percutaneous drain. Neglible drainage in bag prior to installation. Patient feels better in terms of breathing.
[2017-02-21] MEDS: CMCS Melatonin (NF) 3 MG TAB PO PRN ×2 (00:10→21:01)
[2017-02-21] MEDS: Clindamycin 600 MG IVPREMIX(* 600 MG/50 ML SDV IV SCH ×3 (01:01→17:21)
[2017-02-21] MEDS: Morphine INJ* 4 MG/ML 1 ML SYRINGE IV PRN ×5 (03:28→23:29)
[2017-02-21] MEDS: oxyCODONE/Acetamin 5/325 MG* TAB PO PRN ×5 (05:00→23:29)
[2017-02-21] MEDS: Heparin VIAL(*) 5000 UNITS/ML VIAL (FIVE THOUSAND) SUBCUT SCH ×3 (05:51→21:03)
[2017-02-21] MEDS: NS 0.9% 1000 ML* 1,000 ML IV SCH (07:51)
[2017-02-21] MEDS: DORNASE ALFA 1 mg/ml(NF) 5 MG in NS 0.9% 50 ML* 45 ML INTRAPLEUR SCH (08:21)
[2017-02-21] MEDS: Alteplase (CATHFLO)* 10 MG in NS 0.9% 50 ML* 40 ML INTRAPLEUR SCH (08:21)
[2017-02-21] MEDS: Insulin LISPRO* 1 UNITS UNIT SUBCUT SCH ×4 (08:30→21:01)
[2017-02-21] MEDS: Atorvastatin* 10 MG TAB PO SCH (08:33)
[2017-02-21] MEDS: Magnesium Oxide TAB* 400 MG PO SCH (08:33)
[2017-02-21] MEDS: Pramipexole TAB* 0.125 MG PO SCH ×2 (08:33→21:01)
[2017-02-21] MEDS: Lisinopril TAB* 10 MG PO SCH (08:33)
[2017-02-21] MEDS: Aspirin TAB* 325 MG PO SCH (08:33)
[2017-02-21] MEDS: Polyethylene Glycol 3350* 17 GM PACKET PO SCH ×2 (08:37→20:50)
--- NOTE | 2017-02-21 12:21 | RAD ---
INDICATION: Left pleural effusion, follow-up. COMPARISON: Comparison is made with a prior CT of the chest from February 19, 2017. TECHNIQUE: A CT scan of the chest was performed without intravenous contrast. Contiguous axial sections were obtained from the lung apices through the lung bases. Images were reconstructed in the coronal and sagittal planes. FINDINGS: There is mild to moderate paraseptal emphysematous change. There is a small partially loculated left pleural effusion present posteriorly toward the lung base. There is a small amount of air within the pleural effusion. There is a Heimlich-type chest tube present which is located posteriorly. There has been interval removal of a larger bore chest tube. There is a small adjacent left basilar infiltrate possibly representing atelectasis which is also decreased in size. There is a mildly prominent 1.0 cm right peritracheal and subcarinal lymph nodes which are unchanged. The heart is within normal limits in size. No pericardial effusion is present. The thoracic aorta is normal in caliber. There is a PICC catheter present on the right side appears to extend to the junction of the innominate veins. There are calcifications partially visualized on images of the upper abdomen which appear to be within the gallbladder neck region. The gallbladder is nondistended. There are couple small hypodense hepatic lesions which are unchanged and too small to characterize on this noncontrast study. There is a moderate dorsal scoliosis convex toward the right side. No significant focal osseous abnormality is seen. IMPRESSION: 1. SMALL PARTIALLY LOCULATED LEFT PLEURAL EFFUSION DECREASED IN SIZE. SMALL ADJACENT LEFT LOWER LOBE INFILTRATE ALSO DECREASED. 2. PROBABLE CHOLELITHIASIS.
--- NOTE | 2017-02-21 17:04 | PN ---
Subjective Date of Service: 02/21/17 Interval History: Mr. Vasquez feels good today. Pigtail has been removed. A repeat CT chest showed improved aeration and decreased fluid. He has been up walking and says he felt strong doing so. He is agreeable to going to a SNF upon discharge. He reports that his breathing is comfortable. Denies cough, SOB, orthopnea, chest pain, but does note some pain around the prior chest tube site. Afebrile. Family History: Unchanged from Admission Social History: Unchanged from Admission Past Medical History: Unchanged from Admission Objective Active Medications: Al Hydrox/Mg Hydrox/Simethicone (Maalox Plus*) 30 ml PO Q4H PRN PRN Reason: HEARTBURN Last Admin: 02/16/17 04:57 Dose: 30 ml Albuterol/Ipratropium (Duoneb (Albuterol 2.5 Mg/Ipratropium 0.5 Mg)) 1 neb INH Q6H PRN PRN Reason: sob/wheexing Alteplase, Recombinant (Cathflo Activase*) 2 mg IV Q24H PRN PRN Reason: poor PICC flow Aspirin (Aspirin Tab*) 325 mg PO DAILY [facility] Last Admin: 02/21/17 08:33 Dose: 325 mg Atorvastatin Calcium (Lipitor*) 10 mg PO DAILY [facility] Last Admin: 02/21/17 08:33 Dose: 10 mg Dextrose (D50w Syringe 50 Ml*) 12.5 gm IV PUSH .FOR FS < 60 - SS PRN PRN Reason: FS < 60 Heparin Sodium (Porcine) (Heparin Vial(*)) 5,000 units SUBCUT Q8HR [facility] Last Admin: 02/21/17 13:42 Dose: 5,000 units Heparin Sodium (Porcine) (Heparin Flush Picc/Ml/Cvc(*)) 0 ml FLUSH 0600,1800 [facility] Last Admin: 02/21/17 05:47 Dose: 1 ml Ceftriaxone Sodium 2 gm/ (Sodium Chloride) 100 mls @ 200 mls/hr IVPB Q24H [facility] Last Admin: 02/20/17 21:45 Dose: 200 mls/hr Clindamycin HCl/Dextrose (Cleocin 600 Mg Ivpremix(*) Sdv) 600 mg in 50 mls @ 100 mls/hr IV Q8H [facility] Last Admin: 02/21/17 08:34 Dose: 100 mls/hr Sodium Chloride (Ns 0.9% 1000 Ml*) 1,000 mls @ 40 mls/hr IV PER RATE [facility] Last Admin: 02/21/17 07:51 Dose: 40 mls/hr Insulin Glargine (Lantus(*)) 18 units SUBCUT Q24H [facility] Last Admin: 02/20/17 17:08 Dose: 18 units Insulin Human Lispro (Humalog*) 0 units SUBCUT ACHS [facility] PRN Reason: Protocol Last Admin: 02/21/17 12:18 Dose: Not Given Lisinopril (Prinivil Tab*) 20 mg PO DAILY [facility] Last Admin: 02/21/17 08:33 Dose: 20 mg Magnesium Oxide (Magox 400 Tab*) 800 mg PO DAILY [facility] Last Admin: 02/21/17 08:33 Dose: 800 mg Melatonin (Melatonin (Nf)) 3 mg PO BEDTIME PRN PRN Reason: INSOMNIA Last Admin: 02/21/17 00:10 Dose: 3 mg Morphine Sulfate (Morphine Inj (Syringe)*) 4 mg IV Q2H PRN PRN Reason: PAIN Last Admin: 02/21/17 11:22 Dose: 4 mg Ondansetron HCl (Zofran Inj*) 4 mg IV Q2H PRN PRN Reason: NAUSEA Last Admin: 02/19/17 09:46 Dose: 4 mg Oxycodone/Acetaminophen (Percocet 5/325 Tab*) 1 tab PO Q4H PRN PRN Reason: PAIN Last Admin: 02/21/17 13:41 Dose: 1 tab Polyethylene Glycol/Electrolytes (Miralax*) 17 gm PO 0800,2100 [facility] Last Admin: 02/21/17 08:37 Dose: 17 gm Pramipexole Dihydrochloride (Mirapex Tab*) 0.125 mg PO BID [facility] Last Admin: 02/21/17 08:33 Dose: 0.125 mg Promethazine HCl (Phenergan Inj(Restricted)*) 25 mg IM Q6H PRN PRN Reason: NAUSEA/VOMITING Last Admin: 02/14/17 11:41 Dose: 25 mg Vital Signs 02/20/17 02/20/17 02/20/17 17:46 19:48 20:29 Temperature Pulse Rate Respiratory 18 18 18 Rate Blood Pressure (mmHg) O2 Sat by Pulse Oximetry 02/20/17 02/20/17 02/20/17 20:34 20:39 20:48 Temperature 99.7 F Pulse Rate 72 Respiratory 16 16 18 Rate Blood Pressure 141/61 (mmHg) O2 Sat by Pulse 92 Oximetry 02/20/17 02/21/17 02/21/17 22:12 00:17 03:28 Temperature 98.1 F Pulse Rate 66 Respiratory 18 18 16 Rate Blood Pressure 138/60 (mmHg) O2 Sat by Pulse 94 Oximetry 02/21/17 02/21/17 02/21/17 03:34 04:28 05:00 Temperature 98.5 F Pulse Rate 68 Respiratory 16 16 18 Rate Blood Pressure 145/66 (mmHg) O2 Sat by Pulse 92 Oximetry 02/21/17 02/21/17 02/21/17 07:00 07:26 07:41 Temperature 97.9 F Pulse Rate 63 Respiratory 22 16 20 Rate Blood Pressure 131/63 (mmHg) O2 Sat by Pulse 94 Oximetry 02/21/17 02/21/17 02/21/17 08:00 08:28 09:18 Temperature Pulse Rate Respiratory 20 20 20 Rate Blood Pressure (mmHg) O2 Sat by Pulse Oximetry 02/21/17 02/21/17 02/21/17 11:18 11:20 11:22 Temperature 98.3 F Pulse Rate 71 Respiratory 18 16 20 Rate Blood Pressure 149/64 (mmHg) O2 Sat by Pulse 95 Oximetry 02/21/17 02/21/17 02/21/17 12:20 13:41 15:41 Temperature Pulse Rate Respiratory 18 18 21 Rate Blood Pressure (mmHg) O2 Sat by Pulse Oximetry 02/21/17 15:51 Temperature 98.2 F Pulse Rate 73 Respiratory 20 Rate Blood Pressure 143/63 (mmHg) O2 Sat by Pulse 94 Oximetry Oxygen Devices in Use Now: None Appearance: alert, obese, no distress Eyes: No Scleral Icterus, PERRLA Ears/Nose/Mouth/Throat: NL Teeth, Lips, Gums, Clear Oropharnyx Neck: NL Appearance and Movements; NL JVP, Trachea Midline, No Thyroid Enlargement, Masses Respiratory: Symmetrical Chest Expansion and Respiratory Effort, - - decreased breath sounds right lung base, dull to percussion Cardiovascular: NL Sounds; No Murmurs; No JVD, RRR, No Edema Abdominal: NL Sounds; No Tenderness; No Distention, No Hepatosplenomegaly Lymphatic: No Cervical Adenopathy Extremities: No Edema Skin: No Rash or Ulcers Neurological: Alert and Oriented x 3 Result Diagrams: 02/19/17 05:25 02/19/17 05:25 Additional Lab and Data: Lab Results 02/12/17 02/12/17 02/12/17 Range/Units 13:10 13:10 13:10 WBC 19.8 H (3.5-10.8) 10^3/ul RBC 4.35 (4.0-5.4) 10^6/ul Hgb 12.2 L (14.0-18.0) g/dl Hct 37 L (42-52) % MCV 85 (80-94) fL MCH 28 (27-31) pg MCHC 33 (31-36) g/dl RDW 15 (10.5-15) % Plt Count 531 H (150-450) 10^3/ul MPV 8 (7.4-10.4) um3 Neut % (Auto) 86.2 H (38-83) % Lymph % (Auto) 5.1 L (25-47) % [place] % (Auto) 7.3 (1-9) % Eos % (Auto) 0.3 (0-6) % Baso % (Auto) 1.1 (0-2) % Absolute Neuts (auto) 17.1 H (1.5-7.7) 10^3/ul Absolute Lymphs (auto) 1.0 (1.0-4.8) 10^3/ul Absolute Monos (auto) 1.4 H (0-0.8) 10^3/ul Absolute Eos (auto) 0.1 (0-0.6) 10^3/ul Absolute Basos (auto) 0.2 (0-0.2) 10^3/ul Absolute Nucleated RBC 0.01 10^3/ul Nucleated RBC % 0 INR (Anticoag Therapy) 1.19 H (0.89-1.11) APTT 26.8 (26.0-36.3) seconds D-Dimer, Quantitative > 1050 H (Less Than 230) ng/mL Sodium 132 L (133-145) mmol/L Potassium 4.5 (3.5-5.0) mmol/L Chloride 97 L (101-111) mmol/L Carbon Dioxide 25 (22-32) mmol/L Anion Gap 10 (2-11) mmol/L BUN 59 H (6-24) mg/dL Creatinine 1.86 H (0.67-1.17) mg/dL Est GFR ( Amer) 46.3 (>60) Est GFR (Non-Af Amer) 36.0 (>60) BUN/Creatinine Ratio 31.7 H (8-20) Glucose 163 H (70-100) mg/dL Lactic Acid (0.5-2.0) mmol/L Calcium 9.5 (8.6-10.3) mg/dL Magnesium 2.9 H (1.9-2.7) mg/dL Total Bilirubin 0.50 (0.2-1.0) mg/dL AST 20 (13-39) U/L ALT 26 (7-52) U/L Alkaline Phosphatase 93 (34-104) U/L Total Creatine Kinase 107 (10-223) U/L CK-MB (CK-2) 8.5 H (0.6-6.3) ng/mL Troponin I 0.34 H* (<0.04) ng/mL C-Reactive Protein 459.29 H (< 5.00) mg/L B-Natriuretic Peptide ( - 100) pg/mL Total Protein 7.6 (6.4-8.9) g/dL Albumin 3.3 (3.2-5.2) g/dL Globulin 4.3 H (2-4) g/dL Albumin/Globulin Ratio 0.8 L (1-3) Lipase < 10 L (11.0-82.0) U/L TSH 0.69 (0.34-5.60) mcIU/mL Urine Color Urine Appearance Urine pH (5-9) Ur Specific [place] (1.010-1.030) Urine Protein (Negative) Urine Ketones (Negative) Urine Blood (Negative) Urine Nitrate (Negative) Urine Bilirubin (Negative) Urine Urobilinogen (Negative) Ur Leukocyte Esterase (Negative) Urine WBC (Auto) (Absent) Urine RBC (Auto) (Absent) Ur Squamous Epith Cells (Absent) Urine Bacteria (Absent) Urine Glucose (Negative) 02/12/17 02/12/17 02/12/17 Range/Units 13:10 13:10 14:00 WBC (3.5-10.8) 10^3/ul RBC (4.0-5.4) 10^6/ul Hgb (14.0-18.0) g/dl Hct (42-52) % MCV (80-94) fL MCH (27-31) pg MCHC (31-36) g/dl RDW (10.5-15) % Plt Count (150-450) 10^3/ul MPV (7.4-10.4) um3 Neut % (Auto) (38-83) % Lymph % (Auto) (25-47) % [place] % (Auto) (1-9) % Eos % (Auto) (0-6) % Baso % (Auto) (0-2) % Absolute Neuts (auto) (1.5-7.7) 10^3/ul Absolute Lymphs (auto) (1.0-4.8) 10^3/ul Absolute Monos (auto) (0-0.8) 10^3/ul Absolute Eos (auto) (0-0.6) 10^3/ul Absolute Basos (auto) (0-0.2) 10^3/ul Absolute Nucleated RBC 10^3/ul Nucleated RBC % INR (Anticoag Therapy) (0.89-1.11) APTT (26.0-36.3) seconds D-Dimer, Quantitative (Less Than 230) ng/mL Sodium (133-145) mmol/L Potassium (3.5-5.0) mmol/L Chloride (101-111) mmol/L Carbon Dioxide (22-32) mmol/L Anion Gap (2-11) mmol/L BUN (6-24) mg/dL Creatinine (0.67-1.17) mg/dL Est GFR ( Amer) (>60) Est GFR (Non-Af Amer) (>60) BUN/Creatinine Ratio (8-20) Glucose (70-100) mg/dL Lactic Acid 1.2 (0.5-2.0) mmol/L Calcium (8.6-10.3) mg/dL Magnesium (1.9-2.7) mg/dL Total Bilirubin (0.2-1.0) mg/dL AST (13-39) U/L ALT (7-52) U/L Alkaline Phosphatase (34-104) U/L Total Creatine Kinase (10-223) U/L CK-MB (CK-2) (0.6-6.3) ng/mL Troponin I (<0.04) ng/mL C-Reactive Protein (< 5.00) mg/L B-Natriuretic Peptide 412 H ( - 100) pg/mL Total Protein (6.4-8.9) g/dL Albumin (3.2-5.2) g/dL Globulin (2-4) g/dL Albumin/Globulin Ratio (1-3) Lipase (11.0-82.0) U/L TSH (0.34-5.60) mcIU/mL Urine Color Yellow Urine Appearance Clear Urine pH 5.0 (5-9) Ur Specific [place] 1.017 (1.010-1.030) Urine Protein 1+(30 mg/dl) H (Negative) Urine Ketones Negative (Negative) Urine Blood Negative (Negative) Urine Nitrate Negative (Negative) Urine Bilirubin Negative (Negative) Urine Urobilinogen Negative (Negative) Ur Leukocyte Esterase Negative (Negative) Urine WBC (Auto) Trace(0-5/hpf) (Absent) Urine RBC (Auto) Trace(0-2/hpf) (Absent) Ur Squamous Epith Cells Present H (Absent) Urine Bacteria Absent (Absent) Urine Glucose Negative (Negative) Microbiology and Other Data: Microbiology 02/12/17 14:44 Aerobic Blood Culture - Preliminary Blood Venous No Growth Day 4 Anaerobic Blood Culture - Preliminary No Growth Day 4 Blood Culture - Final 02/12/17 18:00 Gram Stain - Final Pleural Fluid Body Fluid Culture - Preliminary No Growth Day 3 02/13/17 08:11 Aerobic Blood Culture - Preliminary Blood Venous No Growth Day 3 Anaerobic Blood Culture - Preliminary No Growth Day 3 Blood Culture - Final 02/13/17 08:02 Aerobic Blood Culture - Preliminary Blood Venous No Growth Day 3 Anaerobic Blood Culture - Preliminary No Growth Day 3 Blood Culture - Final 02/12/17 20:13 Gram Stain - Final Sputum Sputum Culture - Final Normal [place] 02/12/17 15:30 Nasal Screen MRSA (PCR)(AMAYA) - Final Nasal Mrsa Negative 02/12/17 16:59 Legionella Urinary Antigen - Final Urine Negative Legionella Streptococcus pneumoniae Ag Screen - Final Negative S. pneumo Antigen Assess/Plan/Problems-Billing Assessment: 1. Empyema vs. Parapneumonic effusion. Cultures remain negative (unclear whether antibiotics were begun prior to fluid collection, which may explain the negative cultures), but he has been afebrile on clindamycin and ceftriaxone. Cytology was negative x 1, but given the low sensitivity of pleural fluid cytology, this is not entirely excluded. Repeat CT today shows improvement in lung aeration with reduced gluid. Pigtail removed , no oxygen requirement. 2. Chronic Pain Syndrome. his family express concern over narcotic abuse. Will discuss this with him. 3. Morbid Obesity. functional status and respiratory mechanics will benefit from weight loss 4. DMII BG at goal on current regimen.
[2017-02-21] MEDS: Insulin GLARGINE(*) 1 UNITS UNIT SUBCUT SCH (17:18)
[2017-02-22] MEDS: Clindamycin 600 MG IVPREMIX(* 600 MG/50 ML SDV IV SCH ×3 (01:18→17:31)
[2017-02-22] MEDS: Morphine INJ* 4 MG/ML 1 ML SYRINGE IV PRN ×2 (01:50→07:34)
[2017-02-22] MEDS: Heparin VIAL(*) 5000 UNITS/ML VIAL (FIVE THOUSAND) SUBCUT SCH ×3 (05:14→21:41)
[2017-02-22] MEDS: oxyCODONE/Acetamin 5/325 MG* TAB PO PRN ×5 (05:14→23:33)
[2017-02-22] MEDS: NS 0.9% 1000 ML* 1,000 ML IV SCH (05:41)
[2017-02-22 05:43] LABS: Hematocrit 33 % (42-52); Hemoglobin 10.5 g/dl (14.0-18.0); Mean Corpuscular HGB Conc 32 g/dl (31-36); Mean Corpuscular Hemoglobin 27 pg (27-31); Mean Corpuscular Volume 85 fL (80-94); Mean Platelet Volume 8 um3 (7.4-10.4); Red Blood Count 3.89 10^6/ul (4.0-5.4); Red Cell Distribution Width 15 % (10.5-15); White Blood Count 11.1 10^3/ul (3.5-10.8)
[2017-02-22] MEDS: Insulin LISPRO* 1 UNITS UNIT SUBCUT SCH ×4 (08:30→21:38)
[2017-02-22] MEDS: Polyethylene Glycol 3350* 17 GM PACKET PO SCH ×2 (08:32→21:41)
[2017-02-22] MEDS: Aspirin TAB* 325 MG PO SCH (08:35)
[2017-02-22] MEDS: Magnesium Oxide TAB* 400 MG PO SCH (08:35)
[2017-02-22] MEDS: Atorvastatin* 10 MG TAB PO SCH (08:35)
[2017-02-22] MEDS: Lisinopril TAB* 10 MG PO SCH (08:35)
[2017-02-22] MEDS: Pramipexole TAB* 0.125 MG PO SCH ×2 (08:35→21:35)
--- NOTE | 2017-02-22 13:46 | PN ---
Subjective Date of Service: 02/22/17 Interval History: Sitting up in chair, no complaints. Walked around the unit and felt well. Denies shortness of breath, orthopnea, but does complain of ongoing "aches and pains" all over. He cannot localize them to one place. Family History: Unchanged from Admission Social History: Unchanged from Admission Past Medical History: Unchanged from Admission Objective Active Medications: Al Hydrox/Mg Hydrox/Simethicone (Maalox Plus*) 30 ml PO Q4H PRN PRN Reason: HEARTBURN Last Admin: 02/16/17 04:57 Dose: 30 ml Albuterol/Ipratropium (Duoneb (Albuterol 2.5 Mg/Ipratropium 0.5 Mg)) 1 neb INH Q6H PRN PRN Reason: sob/wheexing Alteplase, Recombinant (Cathflo Activase*) 2 mg IV Q24H PRN PRN Reason: poor PICC flow Aspirin (Aspirin Tab*) 325 mg PO DAILY [facility] Last Admin: 02/22/17 08:35 Dose: 325 mg Atorvastatin Calcium (Lipitor*) 10 mg PO DAILY [facility] Last Admin: 02/22/17 08:35 Dose: 10 mg Dextrose (D50w Syringe 50 Ml*) 12.5 gm IV PUSH .FOR FS < 60 - SS PRN PRN Reason: FS < 60 Heparin Sodium (Porcine) (Heparin Vial(*)) 5,000 units SUBCUT Q8HR [facility] Last Admin: 02/22/17 05:14 Dose: 5,000 units Heparin Sodium (Porcine) (Heparin Flush Picc/Ml/Cvc(*)) 0 ml FLUSH 0600,1800 [facility] Last Admin: 02/22/17 05:15 Dose: 5 ml Ceftriaxone Sodium 2 gm/ (Sodium Chloride) 100 mls @ 200 mls/hr IVPB Q24H [facility] Last Admin: 02/21/17 21:03 Dose: 200 mls/hr Clindamycin HCl/Dextrose (Cleocin 600 Mg Ivpremix(*) Sdv) 600 mg in 50 mls @ 100 mls/hr IV Q8H [facility] Last Admin: 02/22/17 08:36 Dose: 100 mls/hr Sodium Chloride (Ns 0.9% 1000 Ml*) 1,000 mls @ 40 mls/hr IV PER RATE [facility] Last Admin: 02/22/17 05:41 Dose: 40 mls/hr Insulin Glargine (Lantus(*)) 18 units SUBCUT Q24H [facility] Last Admin: 02/21/17 17:18 Dose: 18 units Insulin Human Lispro (Humalog*) 0 units SUBCUT ACHS [facility] PRN Reason: Protocol Last Admin: 02/22/17 12:37 Dose: 2 unit Lisinopril (Prinivil Tab*) 20 mg PO DAILY [facility] Last Admin: 02/22/17 08:35 Dose: 20 mg Magnesium Oxide (Magox 400 Tab*) 800 mg PO DAILY [facility] Last Admin: 02/22/17 08:35 Dose: 800 mg Melatonin (Melatonin (Nf)) 3 mg PO BEDTIME PRN PRN Reason: INSOMNIA Last Admin: 02/21/17 21:01 Dose: 3 mg Morphine Sulfate (Ms Contin(*)) 15 mg PO Q12H [facility] Ondansetron HCl (Zofran Inj*) 4 mg IV Q2H PRN PRN Reason: NAUSEA Last Admin: 02/19/17 09:46 Dose: 4 mg Oxycodone/Acetaminophen (Percocet 5/325 Tab*) 1 tab PO Q4H PRN PRN Reason: PAIN Last Admin: 02/22/17 10:05 Dose: 1 tab Oxycodone/Acetaminophen (Percocet 5/325 Tab*) 2 tab PO Q4H PRN PRN Reason: PAIN Polyethylene Glycol/Electrolytes (Miralax*) 17 gm PO 0800,2100 [facility] Last Admin: 02/22/17 08:32 Dose: 17 gm Pramipexole Dihydrochloride (Mirapex Tab*) 0.125 mg PO BID [facility] Last Admin: 02/22/17 08:35 Dose: 0.125 mg Promethazine HCl (Phenergan Inj(Restricted)*) 25 mg IM Q6H PRN PRN Reason: NAUSEA/VOMITING Last Admin: 02/14/17 11:41 Dose: 25 mg Vital Signs 02/21/17 02/21/17 02/21/17 13:41 15:41 15:51 Temperature 98.2 F Pulse Rate 73 Respiratory 18 21 20 Rate Blood Pressure 143/63 (mmHg) O2 Sat by Pulse 94 Oximetry 02/21/17 02/21/17 02/21/17 18:25 19:18 19:30 Temperature 98.9 F Pulse Rate 77 Respiratory 18 20 21 Rate Blood Pressure 144/66 (mmHg) O2 Sat by Pulse 96 Oximetry 02/21/17 02/21/17 02/21/17 19:31 20:25 20:31 Temperature Pulse Rate Respiratory 18 18 18 Rate Blood Pressure (mmHg) O2 Sat by Pulse Oximetry 02/21/17 02/21/17 02/22/17 23:29 23:36 00:29 Temperature 98.1 F Pulse Rate 67 Respiratory 18 18 18 Rate Blood Pressure 139/60 (mmHg) O2 Sat by Pulse 92 Oximetry 02/22/17 02/22/17 02/22/17 01:29 01:50 02:50 Temperature Pulse Rate Respiratory 18 16 16 Rate Blood Pressure (mmHg) O2 Sat by Pulse Oximetry 02/22/17 02/22/17 02/22/17 03:35 05:14 07:14 Temperature 98.1 F Pulse Rate 66 Respiratory 16 16 20 Rate Blood Pressure 131/60 (mmHg) O2 Sat by Pulse 96 Oximetry 02/22/17 02/22/17 02/22/17 07:32 07:34 08:00 Temperature 98.0 F Pulse Rate 65 Respiratory 16 20 20 Rate Blood Pressure 182/77 (mmHg) O2 Sat by Pulse 94 Oximetry 02/22/17 02/22/17 02/22/17 08:28 08:30 10:05 Temperature Pulse Rate 67 Respiratory 20 20 Rate Blood Pressure 140/65 (mmHg) O2 Sat by Pulse Oximetry 02/22/17 02/22/17 11:38 12:05 Temperature 98.5 F Pulse Rate 72 Respiratory 16 18 Rate Blood Pressure 147/65 (mmHg) O2 Sat by Pulse 94 Oximetry Oxygen Devices in Use Now: None Appearance: obese, sitting up in chair Eyes: No Scleral Icterus, PERRLA Ears/Nose/Mouth/Throat: NL Teeth, Lips, Gums, Clear Oropharnyx Neck: NL Appearance and Movements; NL JVP Respiratory: Symmetrical Chest Expansion and Respiratory Effort - dull to percussion over left base Cardiovascular: NL Sounds; No Murmurs; No JVD, RRR Abdominal: NL Sounds; No Tenderness; No Distention, No Hepatosplenomegaly Lymphatic: No Cervical Adenopathy Extremities: No Clubbing, Cyanosis Skin: No Rash or Ulcers Neurological: Alert and Oriented x 3 Result Diagrams: 02/22/17 05:20 02/19/17 05:25 Additional Lab and Data: Lab Results 02/12/17 02/12/17 02/12/17 Range/Units 13:10 13:10 13:10 WBC 19.8 H (3.5-10.8) 10^3/ul RBC 4.35 (4.0-5.4) 10^6/ul Hgb 12.2 L (14.0-18.0) g/dl Hct 37 L (42-52) % MCV 85 (80-94) fL MCH 28 (27-31) pg MCHC 33 (31-36) g/dl RDW 15 (10.5-15) % Plt Count 531 H (150-450) 10^3/ul MPV 8 (7.4-10.4) um3 Neut % (Auto) 86.2 H (38-83) % Lymph % (Auto) 5.1 L (25-47) % [place] % (Auto) 7.3 (1-9) % Eos % (Auto) 0.3 (0-6) % Baso % (Auto) 1.1 (0-2) % Absolute Neuts (auto) 17.1 H (1.5-7.7) 10^3/ul Absolute Lymphs (auto) 1.0 (1.0-4.8) 10^3/ul Absolute Monos (auto) 1.4 H (0-0.8) 10^3/ul Absolute Eos (auto) 0.1 (0-0.6) 10^3/ul Absolute Basos (auto) 0.2 (0-0.2) 10^3/ul Absolute Nucleated RBC 0.01 10^3/ul Nucleated RBC % 0 INR (Anticoag Therapy) 1.19 H (0.89-1.11) APTT 26.8 (26.0-36.3) seconds D-Dimer, Quantitative > 1050 H (Less Than 230) ng/mL Sodium 132 L (133-145) mmol/L Potassium 4.5 (3.5-5.0) mmol/L Chloride 97 L (101-111) mmol/L Carbon Dioxide 25 (22-32) mmol/L Anion Gap 10 (2-11) mmol/L BUN 59 H (6-24) mg/dL Creatinine 1.86 H (0.67-1.17) mg/dL Est GFR ( Amer) 46.3 (>60) Est GFR (Non-Af Amer) 36.0 (>60) BUN/Creatinine Ratio 31.7 H (8-20) Glucose 163 H (70-100) mg/dL Lactic Acid (0.5-2.0) mmol/L Calcium 9.5 (8.6-10.3) mg/dL Magnesium 2.9 H (1.9-2.7) mg/dL Total Bilirubin 0.50 (0.2-1.0) mg/dL AST 20 (13-39) U/L ALT 26 (7-52) U/L Alkaline Phosphatase 93 (34-104) U/L Total Creatine Kinase 107 (10-223) U/L CK-MB (CK-2) 8.5 H (0.6-6.3) ng/mL Troponin I 0.34 H* (<0.04) ng/mL C-Reactive Protein 459.29 H (< 5.00) mg/L B-Natriuretic Peptide ( - 100) pg/mL Total Protein 7.6 (6.4-8.9) g/dL Albumin 3.3 (3.2-5.2) g/dL Globulin 4.3 H (2-4) g/dL Albumin/Globulin Ratio 0.8 L (1-3) Lipase < 10 L (11.0-82.0) U/L TSH 0.69 (0.34-5.60) mcIU/mL Urine Color Urine Appearance Urine pH (5-9) Ur Specific [place] (1.010-1.030) Urine Protein (Negative) Urine Ketones (Negative) Urine Blood (Negative) Urine Nitrate (Negative) Urine Bilirubin (Negative) Urine Urobilinogen (Negative) Ur Leukocyte Esterase (Negative) Urine WBC (Auto) (Absent) Urine RBC (Auto) (Absent) Ur Squamous Epith Cells (Absent) Urine Bacteria (Absent) Urine Glucose (Negative) 02/12/17 02/12/17 02/12/17 Range/Units 13:10 13:10 14:00 WBC (3.5-10.8) 10^3/ul RBC (4.0-5.4) 10^6/ul Hgb (14.0-18.0) g/dl Hct (42-52) % MCV (80-94) fL MCH (27-31) pg MCHC (31-36) g/dl RDW (10.5-15) % Plt Count (150-450) 10^3/ul MPV (7.4-10.4) um3 Neut % (Auto) (38-83) % Lymph % (Auto) (25-47) % [place] % (Auto) (1-9) % Eos % (Auto) (0-6) % Baso % (Auto) (0-2) % Absolute Neuts (auto) (1.5-7.7) 10^3/ul Absolute Lymphs (auto) (1.0-4.8) 10^3/ul Absolute Monos (auto) (0-0.8) 10^3/ul Absolute Eos (auto) (0-0.6) 10^3/ul Absolute Basos (auto) (0-0.2) 10^3/ul Absolute Nucleated RBC 10^3/ul Nucleated RBC % INR (Anticoag Therapy) (0.89-1.11) APTT (26.0-36.3) seconds D-Dimer, Quantitative (Less Than 230) ng/mL Sodium (133-145) mmol/L Potassium (3.5-5.0) mmol/L Chloride (101-111) mmol/L Carbon Dioxide (22-32) mmol/L Anion Gap (2-11) mmol/L BUN (6-24) mg/dL Creatinine (0.67-1.17) mg/dL Est GFR ( Amer) (>60) Est GFR (Non-Af Amer) (>60) BUN/Creatinine Ratio (8-20) Glucose (70-100) mg/dL Lactic Acid 1.2 (0.5-2.0) mmol/L Calcium (8.6-10.3) mg/dL Magnesium (1.9-2.7) mg/dL Total Bilirubin (0.2-1.0) mg/dL AST (13-39) U/L ALT (7-52) U/L Alkaline Phosphatase (34-104) U/L Total Creatine Kinase (10-223) U/L CK-MB (CK-2) (0.6-6.3) ng/mL Troponin I (<0.04) ng/mL C-Reactive Protein (< 5.00) mg/L B-Natriuretic Peptide 412 H ( - 100) pg/mL Total Protein (6.4-8.9) g/dL Albumin (3.2-5.2) g/dL Globulin (2-4) g/dL Albumin/Globulin Ratio (1-3) Lipase (11.0-82.0) U/L TSH (0.34-5.60) mcIU/mL Urine Color Yellow Urine Appearance Clear Urine pH 5.0 (5-9) Ur Specific [place] 1.017 (1.010-1.030) Urine Protein 1+(30 mg/dl) H (Negative) Urine Ketones Negative (Negative) Urine Blood Negative (Negative) Urine Nitrate Negative (Negative) Urine Bilirubin Negative (Negative) Urine Urobilinogen Negative (Negative) Ur Leukocyte Esterase Negative (Negative) Urine WBC (Auto) Trace(0-5/hpf) (Absent) Urine RBC (Auto) Trace(0-2/hpf) (Absent) Ur Squamous Epith Cells Present H (Absent) Urine Bacteria Absent (Absent) Urine Glucose Negative (Negative) Microbiology and Other Data: Microbiology 02/12/17 14:44 Aerobic Blood Culture - Preliminary Blood Venous No Growth Day 4 Anaerobic Blood Culture - Preliminary No Growth Day 4 Blood Culture - Final 02/12/17 18:00 Gram Stain - Final Pleural Fluid Body Fluid Culture - Preliminary No Growth Day 3 02/13/17 08:11 Aerobic Blood Culture - Preliminary Blood Venous No Growth Day 3 Anaerobic Blood Culture - Preliminary No Growth Day 3 Blood Culture - Final 02/13/17 08:02 Aerobic Blood Culture - Preliminary Blood Venous No Growth Day 3 Anaerobic Blood Culture - Preliminary No Growth Day 3 Blood Culture - Final 02/12/17 20:13 Gram Stain - Final Sputum Sputum Culture - Final Normal Tita 02/12/17 15:30 Nasal Screen MRSA (PCR)(AMAYA) - Final Nasal Mrsa Negative 02/12/17 16:59 Legionella Urinary Antigen - Final Urine Negative Legionella Streptococcus pneumoniae Ag Screen - Final Negative S. pneumo Antigen Assess/Plan/Problems-Billing Assessment: 1. Empyema vs. Parapneumonic effusion. Cultures remain negative (unclear whether antibiotics were begun prior to fluid collection, which may explain the negative cultures), but he has been afebrile on clindamycin and ceftriaxone. Cytology was negative x 1, but given the low sensitivity of pleural fluid cytology, this is not entirely excluded. Repeat CT yesterday showed improvement in lung aeration with reduced fluid. Pigtail removed, no oxygen requirement. 2. Chronic Pain Syndrome. his family express concern over narcotic abuse. Plan to discontinue IV morphine today and resume long-acting po morphine (which he takes at home). 3. Morbid Obesity. functional status and respiratory mechanics will benefit from weight loss 4. DMII BG at goal on current regimen.
[2017-02-22] MEDS: Insulin GLARGINE(*) 1 UNITS UNIT SUBCUT SCH (17:28)
[2017-02-22] MEDS: CMCS Melatonin (NF) 3 MG TAB PO PRN (21:35)
[2017-02-22] MEDS: Morphine TAB Extended Release (*) 15 MG TAB.ER PO SCH (21:35)
[2017-02-23] MEDS: Clindamycin 600 MG IVPREMIX(* 600 MG/50 ML SDV IV SCH ×3 (00:57→18:08)
[2017-02-23] MEDS: oxyCODONE/Acetamin 5/325 MG* TAB PO PRN ×5 (03:37→20:27)
[2017-02-23] MEDS: Heparin VIAL(*) 5000 UNITS/ML VIAL (FIVE THOUSAND) SUBCUT SCH ×3 (05:32→21:56)
[2017-02-23] MEDS: NS 0.9% 1000 ML* 1,000 ML IV SCH (05:35)
[2017-02-23] MEDS: Polyethylene Glycol 3350* 17 GM PACKET PO SCH ×2 (07:47→20:27)
[2017-02-23] MEDS: Insulin LISPRO* 1 UNITS UNIT SUBCUT SCH ×4 (07:52→20:26)
[2017-02-23] MEDS: Atorvastatin* 10 MG TAB PO SCH (09:06)
[2017-02-23] MEDS: Pramipexole TAB* 0.125 MG PO SCH ×2 (09:06→20:27)
[2017-02-23] MEDS: Morphine TAB Extended Release (*) 15 MG TAB.ER PO SCH ×2 (09:06→21:56)
[2017-02-23] MEDS: Lisinopril TAB* 10 MG PO SCH (09:06)
[2017-02-23] MEDS: Aspirin TAB* 325 MG PO SCH (09:06)
[2017-02-23] MEDS: Magnesium Oxide TAB* 400 MG PO SCH (09:06)
--- NOTE | 2017-02-23 15:09 | PN ---
Subjective Date of Service: 02/23/17 Interval History: No events, feels good. Feels his pain is better controlled after resuming long- acting morphine and taking away the short-acting. He denies shortness of breath , chest pain, or orthopnea. The pain at the site of the chest tube is improved ; his only pain is in his low back. He walked the hallways today without event. Family History: Unchanged from Admission Social History: Unchanged from Admission Past Medical History: Unchanged from Admission Objective Active Medications: Al Hydrox/Mg Hydrox/Simethicone (Maalox Plus*) 30 ml PO Q4H PRN PRN Reason: HEARTBURN Last Admin: 02/16/17 04:57 Dose: 30 ml Albuterol/Ipratropium (Duoneb (Albuterol 2.5 Mg/Ipratropium 0.5 Mg)) 1 neb INH Q6H PRN PRN Reason: sob/wheexing Alteplase, Recombinant (Cathflo Activase*) 2 mg IV Q24H PRN PRN Reason: poor PICC flow Aspirin (Aspirin Tab*) 325 mg PO DAILY [facility] Last Admin: 02/23/17 09:06 Dose: 325 mg Atorvastatin Calcium (Lipitor*) 10 mg PO DAILY [facility] Last Admin: 02/23/17 09:06 Dose: 10 mg Dextrose (D50w Syringe 50 Ml*) 12.5 gm IV PUSH .FOR FS < 60 - SS PRN PRN Reason: FS < 60 Heparin Sodium (Porcine) (Heparin Vial(*)) 5,000 units SUBCUT Q8HR [facility] Last Admin: 02/23/17 05:32 Dose: 5,000 units Heparin Sodium (Porcine) (Heparin Flush Picc/Ml/Cvc(*)) 0 ml FLUSH 0600,1800 [facility] Last Admin: 02/23/17 05:34 Dose: 1 ml Ceftriaxone Sodium 2 gm/ (Sodium Chloride) 100 mls @ 200 mls/hr IVPB Q24H [facility] Last Admin: 02/22/17 21:37 Dose: 200 mls/hr Clindamycin HCl/Dextrose (Cleocin 600 Mg Ivpremix(*) Sdv) 600 mg in 50 mls @ 100 mls/hr IV Q8H [facility] Last Admin: 02/23/17 09:05 Dose: 100 mls/hr Sodium Chloride (Ns 0.9% 1000 Ml*) 1,000 mls @ 40 mls/hr IV PER RATE [facility] Last Admin: 02/23/17 05:35 Dose: 40 mls/hr Insulin Glargine (Lantus(*)) 18 units SUBCUT Q24H [facility] Last Admin: 02/22/17 17:28 Dose: 18 units Insulin Human Lispro (Humalog*) 0 units SUBCUT ACHS [facility] PRN Reason: Protocol Last Admin: 02/23/17 11:57 Dose: Not Given Lisinopril (Prinivil Tab*) 20 mg PO DAILY [facility] Last Admin: 02/23/17 09:06 Dose: 20 mg Magnesium Oxide (Magox 400 Tab*) 800 mg PO DAILY [facility] Last Admin: 02/23/17 09:06 Dose: 800 mg Melatonin (Melatonin (Nf)) 3 mg PO BEDTIME PRN PRN Reason: INSOMNIA Last Admin: 02/22/17 21:35 Dose: 3 mg Morphine Sulfate (Ms Contin(*)) 15 mg PO Q12H [facility] Last Admin: 02/23/17 09:06 Dose: 15 mg Ondansetron HCl (Zofran Inj*) 4 mg IV Q2H PRN PRN Reason: NAUSEA Last Admin: 02/19/17 09:46 Dose: 4 mg Oxycodone/Acetaminophen (Percocet 5/325 Tab*) 1 tab PO Q4H PRN PRN Reason: PAIN Last Admin: 02/22/17 10:05 Dose: 1 tab Oxycodone/Acetaminophen (Percocet 5/325 Tab*) 2 tab PO Q4H PRN PRN Reason: PAIN Last Admin: 02/23/17 11:53 Dose: 2 tab Polyethylene Glycol/Electrolytes (Miralax*) 17 gm PO 0800,2100 [facility] Last Admin: 02/23/17 07:47 Dose: 17 gm Pramipexole Dihydrochloride (Mirapex Tab*) 0.125 mg PO BID [facility] Last Admin: 02/23/17 09:06 Dose: 0.125 mg Promethazine HCl (Phenergan Inj(Restricted)*) 25 mg IM Q6H PRN PRN Reason: NAUSEA/VOMITING Last Admin: 02/14/17 11:41 Dose: 25 mg Vital Signs 02/22/17 02/22/17 02/22/17 15:48 16:20 19:15 Temperature 98.2 F Pulse Rate 74 Respiratory 16 18 18 Rate Blood Pressure 139/70 (mmHg) O2 Sat by Pulse 90 Oximetry 02/22/17 02/22/17 02/22/17 19:17 20:34 21:17 Temperature 98.6 F Pulse Rate 75 Respiratory 18 18 18 Rate Blood Pressure 140/67 (mmHg) O2 Sat by Pulse 93 Oximetry 02/22/17 02/22/17 02/22/17 21:35 23:22 23:33 Temperature 97.8 F Pulse Rate 67 Respiratory 18 16 18 Rate Blood Pressure 141/58 (mmHg) O2 Sat by Pulse 94 Oximetry 02/22/17 02/23/17 02/23/17 23:35 01:33 03:32 Temperature 97.8 F Pulse Rate 64 Respiratory 18 18 18 Rate Blood Pressure 131/54 (mmHg) O2 Sat by Pulse 92 Oximetry 02/23/17 02/23/17 02/23/17 03:37 05:37 07:45 Temperature 98.1 F Pulse Rate 62 Respiratory 18 18 18 Rate Blood Pressure 135/60 (mmHg) O2 Sat by Pulse 97 Oximetry 02/23/17 02/23/17 02/23/17 07:47 09:06 11:53 Temperature Pulse Rate Respiratory 16 16 16 Rate Blood Pressure (mmHg) O2 Sat by Pulse Oximetry Oxygen Devices in Use Now: None Appearance: alert, well appearing, obese Eyes: No Scleral Icterus, PERRLA Ears/Nose/Mouth/Throat: NL Teeth, Lips, Gums, Clear Oropharnyx Neck: NL Appearance and Movements; NL JVP, Trachea Midline Respiratory: Symmetrical Chest Expansion and Respiratory Effort, Clear to Auscultation Cardiovascular: NL Sounds; No Murmurs; No JVD, RRR Abdominal: NL Sounds; No Tenderness; No Distention, No Hepatosplenomegaly Lymphatic: No Cervical Adenopathy, No Axillary Adenopathy Extremities: No Edema Skin: No Rash or Ulcers, - - incision left mid-axillary line clean, no drainage Result Diagrams: 02/22/17 05:20 02/19/17 05:25 Additional Lab and Data: Lab Results 02/12/17 02/12/17 02/12/17 Range/Units 13:10 13:10 13:10 WBC 19.8 H (3.5-10.8) 10^3/ul RBC 4.35 (4.0-5.4) 10^6/ul Hgb 12.2 L (14.0-18.0) g/dl Hct 37 L (42-52) % MCV 85 (80-94) fL MCH 28 (27-31) pg MCHC 33 (31-36) g/dl RDW 15 (10.5-15) % Plt Count 531 H (150-450) 10^3/ul MPV 8 (7.4-10.4) um3 Neut % (Auto) 86.2 H (38-83) % Lymph % (Auto) 5.1 L (25-47) % Coal % (Auto) 7.3 (1-9) % Eos % (Auto) 0.3 (0-6) % Baso % (Auto) 1.1 (0-2) % Absolute Neuts (auto) 17.1 H (1.5-7.7) 10^3/ul Absolute Lymphs (auto) 1.0 (1.0-4.8) 10^3/ul Absolute Monos (auto) 1.4 H (0-0.8) 10^3/ul Absolute Eos (auto) 0.1 (0-0.6) 10^3/ul Absolute Basos (auto) 0.2 (0-0.2) 10^3/ul Absolute Nucleated RBC 0.01 10^3/ul Nucleated RBC % 0 INR (Anticoag Therapy) 1.19 H (0.89-1.11) APTT 26.8 (26.0-36.3) seconds D-Dimer, Quantitative > 1050 H (Less Than 230) ng/mL Sodium 132 L (133-145) mmol/L Potassium 4.5 (3.5-5.0) mmol/L Chloride 97 L (101-111) mmol/L Carbon Dioxide 25 (22-32) mmol/L Anion Gap 10 (2-11) mmol/L BUN 59 H (6-24) mg/dL Creatinine 1.86 H (0.67-1.17) mg/dL Est GFR ( Amer) 46.3 (>60) Est GFR (Non-Af Amer) 36.0 (>60) BUN/Creatinine Ratio 31.7 H (8-20) Glucose 163 H (70-100) mg/dL Lactic Acid (0.5-2.0) mmol/L Calcium 9.5 (8.6-10.3) mg/dL Magnesium 2.9 H (1.9-2.7) mg/dL Total Bilirubin 0.50 (0.2-1.0) mg/dL AST 20 (13-39) U/L ALT 26 (7-52) U/L Alkaline Phosphatase 93 (34-104) U/L Total Creatine Kinase 107 (10-223) U/L CK-MB (CK-2) 8.5 H (0.6-6.3) ng/mL Troponin I 0.34 H* (<0.04) ng/mL C-Reactive Protein 459.29 H (< 5.00) mg/L B-Natriuretic Peptide ( - 100) pg/mL Total Protein 7.6 (6.4-8.9) g/dL Albumin 3.3 (3.2-5.2) g/dL Globulin 4.3 H (2-4) g/dL Albumin/Globulin Ratio 0.8 L (1-3) Lipase < 10 L (11.0-82.0) U/L TSH 0.69 (0.34-5.60) mcIU/mL Urine Color Urine Appearance Urine pH (5-9) Ur Specific [place] (1.010-1.030) Urine Protein (Negative) Urine Ketones (Negative) Urine Blood (Negative) Urine Nitrate (Negative) Urine Bilirubin (Negative) Urine Urobilinogen (Negative) Ur Leukocyte Esterase (Negative) Urine WBC (Auto) (Absent) Urine RBC (Auto) (Absent) Ur Squamous Epith Cells (Absent) Urine Bacteria (Absent) Urine Glucose (Negative) 02/12/17 02/12/17 02/12/17 Range/Units 13:10 13:10 14:00 WBC (3.5-10.8) 10^3/ul RBC (4.0-5.4) 10^6/ul Hgb (14.0-18.0) g/dl Hct (42-52) % MCV (80-94) fL MCH (27-31) pg MCHC (31-36) g/dl RDW (10.5-15) % Plt Count (150-450) 10^3/ul MPV (7.4-10.4) um3 Neut % (Auto) (38-83) % Lymph % (Auto) (25-47) % Coal % (Auto) (1-9) % Eos % (Auto) (0-6) % Baso % (Auto) (0-2) % Absolute Neuts (auto) (1.5-7.7) 10^3/ul Absolute Lymphs (auto) (1.0-4.8) 10^3/ul Absolute Monos (auto) (0-0.8) 10^3/ul Absolute Eos (auto) (0-0.6) 10^3/ul Absolute Basos (auto) (0-0.2) 10^3/ul Absolute Nucleated RBC 10^3/ul Nucleated RBC % INR (Anticoag Therapy) (0.89-1.11) APTT (26.0-36.3) seconds D-Dimer, Quantitative (Less Than 230) ng/mL Sodium (133-145) mmol/L Potassium (3.5-5.0) mmol/L Chloride (101-111) mmol/L Carbon Dioxide (22-32) mmol/L Anion Gap (2-11) mmol/L BUN (6-24) mg/dL Creatinine (0.67-1.17) mg/dL Est GFR ( Amer) (>60) Est GFR (Non-Af Amer) (>60) BUN/Creatinine Ratio (8-20) Glucose (70-100) mg/dL Lactic Acid 1.2 (0.5-2.0) mmol/L Calcium (8.6-10.3) mg/dL Magnesium (1.9-2.7) mg/dL Total Bilirubin (0.2-1.0) mg/dL AST (13-39) U/L ALT (7-52) U/L Alkaline Phosphatase (34-104) U/L Total Creatine Kinase (10-223) U/L CK-MB (CK-2) (0.6-6.3) ng/mL Troponin I (<0.04) ng/mL C-Reactive Protein (< 5.00) mg/L B-Natriuretic Peptide 412 H ( - 100) pg/mL Total Protein (6.4-8.9) g/dL Albumin (3.2-5.2) g/dL Globulin (2-4) g/dL Albumin/Globulin Ratio (1-3) Lipase (11.0-82.0) U/L TSH (0.34-5.60) mcIU/mL Urine Color Yellow Urine Appearance Clear Urine pH 5.0 (5-9) Ur Specific [place] 1.017 (1.010-1.030) Urine Protein 1+(30 mg/dl) H (Negative) Urine Ketones Negative (Negative) Urine Blood Negative (Negative) Urine Nitrate Negative (Negative) Urine Bilirubin Negative (Negative) Urine Urobilinogen Negative (Negative) Ur Leukocyte Esterase Negative (Negative) Urine WBC (Auto) Trace(0-5/hpf) (Absent) Urine RBC (Auto) Trace(0-2/hpf) (Absent) Ur Squamous Epith Cells Present H (Absent) Urine Bacteria Absent (Absent) Urine Glucose Negative (Negative) Microbiology and Other Data: Microbiology 02/12/17 14:44 Aerobic Blood Culture - Preliminary Blood Venous No Growth Day 4 Anaerobic Blood Culture - Preliminary No Growth Day 4 Blood Culture - Final 02/12/17 18:00 Gram Stain - Final Pleural Fluid Body Fluid Culture - Preliminary No Growth Day 3 02/13/17 08:11 Aerobic Blood Culture - Preliminary Blood Venous No Growth Day 3 Anaerobic Blood Culture - Preliminary No Growth Day 3 Blood Culture - Final 02/13/17 08:02 Aerobic Blood Culture - Preliminary Blood Venous No Growth Day 3 Anaerobic Blood Culture - Preliminary No Growth Day 3 Blood Culture - Final 02/12/17 20:13 Gram Stain - Final Sputum Sputum Culture - Final Normal Ttia 02/12/17 15:30 Nasal Screen MRSA (PCR)(AMAYA) - Final Nasal Mrsa Negative 02/12/17 16:59 Legionella Urinary Antigen - Final Urine Negative Legionella Streptococcus pneumoniae Ag Screen - Final Negative S. pneumo Antigen Assess/Plan/Problems-Billing Assessment: 1. Left-sided Empyema vs. Parapneumonic effusion. Resolving based on most recent imaging. No oxygen requirement. Cultures remain negative (unclear whether antibiotics were begun prior to fluid collection, which may explain the negative cultures), but he has been afebrile on clindamycin and ceftriaxone. Cytology was negative x 1. Repeat CT showed improvement in lung aeration with reduced fluid. 2. Chronic Pain Syndrome. Long-acting po morphine (which he takes at home) was resumed yesterday. Tomorrow we will plan to reduce the dose of PRN percocet. 3. Morbid Obesity. functional status and respiratory mechanics will benefit from weight loss 4. DMII BG at goal on current regimen. 5. Dysthymic Disorder. Would choose wellbutrin for him given the side effect profile (no weight gain) if he is agreeable; I will discuss starting this with him. 6. Dispo. Plan for [facility] tomorrow for short term rehab.
[2017-02-23] MEDS: Insulin GLARGINE(*) 1 UNITS UNIT SUBCUT SCH (18:05)
[2017-02-23] MEDS: Clotrimazole 1% CREAM* 45 GM TOPICAL SCH (20:26)
[2017-02-23] MEDS: CMCS Melatonin (NF) 3 MG TAB PO PRN (21:30)
[2017-02-24] MEDS: oxyCODONE/Acetamin 5/325 MG* TAB PO PRN ×5 (00:59→20:24)
[2017-02-24] MEDS: Clindamycin 600 MG IVPREMIX(* 600 MG/50 ML SDV IV SCH ×3 (01:00→16:40)
[2017-02-24] MEDS: Heparin VIAL(*) 5000 UNITS/ML VIAL (FIVE THOUSAND) SUBCUT SCH ×3 (06:15→21:43)
[2017-02-24] MEDS: Insulin LISPRO* 1 UNITS UNIT SUBCUT SCH ×4 (09:05→21:44)
[2017-02-24] MEDS: Polyethylene Glycol 3350* 17 GM PACKET PO SCH ×2 (09:13→20:21)
[2017-02-24] MEDS: Clotrimazole 1% CREAM* 45 GM TOPICAL SCH ×2 (09:14→20:20)
[2017-02-24] MEDS: Pramipexole TAB* 0.125 MG PO SCH ×2 (09:14→20:20)
[2017-02-24] MEDS: Magnesium Oxide TAB* 400 MG PO SCH (09:14)
[2017-02-24] MEDS: Atorvastatin* 10 MG TAB PO SCH (09:14)
[2017-02-24] MEDS: Aspirin TAB* 325 MG PO SCH (09:14)
[2017-02-24] MEDS: Lisinopril TAB* 10 MG PO SCH (09:14)
[2017-02-24] MEDS: Morphine TAB Extended Release (*) 15 MG TAB.ER PO SCH ×2 (09:15→21:43)
--- NOTE | 2017-02-24 16:09 | PN ---
Subjective Date of Service: 02/24/17 Interval History: Mr. Vasquez feels good today. No overnight events. Sitting up in the chair this morning. No shortness of breath, cough, orthopnea. No pain at incision site. Family History: Unchanged from Admission Social History: Unchanged from Admission Past Medical History: Unchanged from Admission Objective Active Medications: Al Hydrox/Mg Hydrox/Simethicone (Maalox Plus*) 30 ml PO Q4H PRN PRN Reason: HEARTBURN Last Admin: 02/16/17 04:57 Dose: 30 ml Albuterol/Ipratropium (Duoneb (Albuterol 2.5 Mg/Ipratropium 0.5 Mg)) 1 neb INH Q6H PRN PRN Reason: sob/wheexing Alteplase, Recombinant (Cathflo Activase*) 2 mg IV Q24H PRN PRN Reason: poor PICC flow Aspirin (Aspirin Tab*) 325 mg PO DAILY [facility] Last Admin: 02/24/17 09:14 Dose: 325 mg Atorvastatin Calcium (Lipitor*) 10 mg PO DAILY [facility] Last Admin: 02/24/17 09:14 Dose: 10 mg Clotrimazole (Clotrimazole 1%*) 1 applic TOPICAL BID [facility] Last Admin: 02/24/17 09:14 Dose: 1 applic Dextrose (D50w Syringe 50 Ml*) 12.5 gm IV PUSH .FOR FS < 60 - SS PRN PRN Reason: FS < 60 Heparin Sodium (Porcine) (Heparin Vial(*)) 5,000 units SUBCUT Q8HR [facility] Last Admin: 02/24/17 13:56 Dose: 5,000 units Heparin Sodium (Porcine) (Heparin Flush Picc/Ml/Cvc(*)) 0 ml FLUSH 0600,1800 [facility] Last Admin: 02/24/17 06:15 Dose: 1 ml Ceftriaxone Sodium 2 gm/ (Sodium Chloride) 100 mls @ 200 mls/hr IVPB Q24H [facility] Last Admin: 02/23/17 20:25 Dose: 200 mls/hr Clindamycin HCl/Dextrose (Cleocin 600 Mg Ivpremix(*) Sdv) 600 mg in 50 mls @ 100 mls/hr IV Q8H [facility] Last Admin: 02/24/17 09:13 Dose: 100 mls/hr Insulin Glargine (Lantus(*)) 18 units SUBCUT Q24H [facility] Last Admin: 02/23/17 18:05 Dose: 18 units Insulin Human Lispro (Humalog*) 0 units SUBCUT ACHS [facility] PRN Reason: Protocol Last Admin: 02/24/17 13:40 Dose: Not Given Lisinopril (Prinivil Tab*) 20 mg PO DAILY [facility] Last Admin: 02/24/17 09:14 Dose: 20 mg Magnesium Oxide (Magox 400 Tab*) 800 mg PO DAILY [facility] Last Admin: 02/24/17 09:14 Dose: 800 mg Melatonin (Melatonin (Nf)) 3 mg PO BEDTIME PRN PRN Reason: INSOMNIA Last Admin: 02/23/17 21:30 Dose: 3 mg Morphine Sulfate (Ms Contin(*)) 15 mg PO Q12H [facility] Last Admin: 02/24/17 09:15 Dose: 15 mg Oxycodone/Acetaminophen (Percocet 5/325 Tab*) 2 tab PO Q4H PRN PRN Reason: PAIN Last Admin: 02/24/17 14:00 Dose: 2 tab Polyethylene Glycol/Electrolytes (Miralax*) 17 gm PO 0800,2100 [facility] Last Admin: 02/24/17 09:13 Dose: 17 gm Pramipexole Dihydrochloride (Mirapex Tab*) 0.125 mg PO BID [facility] Last Admin: 02/24/17 09:14 Dose: 0.125 mg Promethazine HCl (Phenergan Inj(Restricted)*) 25 mg IM Q6H PRN PRN Reason: NAUSEA/VOMITING Last Admin: 02/14/17 11:41 Dose: 25 mg Trazodone HCl (Desyrel Tab*) 50 mg PO BEDTIME [facility] Vital Signs 02/23/17 02/23/17 02/23/17 16:40 18:40 19:50 Temperature 98.8 F Pulse Rate 68 Respiratory 16 16 20 Rate Blood Pressure 130/58 (mmHg) O2 Sat by Pulse 98 Oximetry 02/23/17 02/23/17 02/23/17 20:26 20:27 21:56 Temperature Pulse Rate Respiratory 16 15 15 Rate Blood Pressure (mmHg) O2 Sat by Pulse Oximetry 02/23/17 02/23/17 02/24/17 22:13 23:56 00:59 Temperature 97.8 F Pulse Rate 59 Respiratory 15 18 18 Rate Blood Pressure 140/72 (mmHg) O2 Sat by Pulse 95 Oximetry 02/24/17 02/24/17 02/24/17 02:59 03:32 04:58 Temperature 97.7 F Pulse Rate 59 Respiratory 15 16 15 Rate Blood Pressure 127/56 (mmHg) O2 Sat by Pulse 97 Oximetry 02/24/17 02/24/17 02/24/17 07:20 07:58 09:13 Temperature 97.7 F Pulse Rate 62 Respiratory 17 18 16 Rate Blood Pressure 173/74 (mmHg) O2 Sat by Pulse 92 Oximetry 02/24/17 02/24/17 02/24/17 09:15 11:13 11:20 Temperature 98.4 F Pulse Rate 68 Respiratory 16 16 17 Rate Blood Pressure 159/67 (mmHg) O2 Sat by Pulse 92 Oximetry 02/24/17 14:00 Temperature Pulse Rate Respiratory 16 Rate Blood Pressure (mmHg) O2 Sat by Pulse Oximetry Oxygen Devices in Use Now: None Appearance: alert, obese, depressed affect Eyes: No Scleral Icterus, PERRLA Ears/Nose/Mouth/Throat: NL Teeth, Lips, Gums, Clear Oropharnyx Neck: NL Appearance and Movements; NL JVP, Trachea Midline Respiratory: Symmetrical Chest Expansion and Respiratory Effort, - - incision mid-axillary line clean, not draining. Cardiovascular: NL Sounds; No Murmurs; No JVD, RRR Abdominal: NL Sounds; No Tenderness; No Distention, No Hepatosplenomegaly Skin: - - few erythematous patches left mid axillary line Neurological: Alert and Oriented x 3, NL Sensation Result Diagrams: 02/22/17 05:20 02/19/17 05:25 Additional Lab and Data: Lab Results 02/12/17 02/12/17 02/12/17 Range/Units 13:10 13:10 13:10 WBC 19.8 H (3.5-10.8) 10^3/ul RBC 4.35 (4.0-5.4) 10^6/ul Hgb 12.2 L (14.0-18.0) g/dl Hct 37 L (42-52) % MCV 85 (80-94) fL MCH 28 (27-31) pg MCHC 33 (31-36) g/dl RDW 15 (10.5-15) % Plt Count 531 H (150-450) 10^3/ul MPV 8 (7.4-10.4) um3 Neut % (Auto) 86.2 H (38-83) % Lymph % (Auto) 5.1 L (25-47) % [place] % (Auto) 7.3 (1-9) % Eos % (Auto) 0.3 (0-6) % Baso % (Auto) 1.1 (0-2) % Absolute Neuts (auto) 17.1 H (1.5-7.7) 10^3/ul Absolute Lymphs (auto) 1.0 (1.0-4.8) 10^3/ul Absolute Monos (auto) 1.4 H (0-0.8) 10^3/ul Absolute Eos (auto) 0.1 (0-0.6) 10^3/ul Absolute Basos (auto) 0.2 (0-0.2) 10^3/ul Absolute Nucleated RBC 0.01 10^3/ul Nucleated RBC % 0 INR (Anticoag Therapy) 1.19 H (0.89-1.11) APTT 26.8 (26.0-36.3) seconds D-Dimer, Quantitative > 1050 H (Less Than 230) ng/mL Sodium 132 L (133-145) mmol/L Potassium 4.5 (3.5-5.0) mmol/L Chloride 97 L (101-111) mmol/L Carbon Dioxide 25 (22-32) mmol/L Anion Gap 10 (2-11) mmol/L BUN 59 H (6-24) mg/dL Creatinine 1.86 H (0.67-1.17) mg/dL Est GFR ( Amer) 46.3 (>60) Est GFR (Non-Af Amer) 36.0 (>60) BUN/Creatinine Ratio 31.7 H (8-20) Glucose 163 H (70-100) mg/dL Lactic Acid (0.5-2.0) mmol/L Calcium 9.5 (8.6-10.3) mg/dL Magnesium 2.9 H (1.9-2.7) mg/dL Total Bilirubin 0.50 (0.2-1.0) mg/dL AST 20 (13-39) U/L ALT 26 (7-52) U/L Alkaline Phosphatase 93 (34-104) U/L Total Creatine Kinase 107 (10-223) U/L CK-MB (CK-2) 8.5 H (0.6-6.3) ng/mL Troponin I 0.34 H* (<0.04) ng/mL C-Reactive Protein 459.29 H (< 5.00) mg/L B-Natriuretic Peptide ( - 100) pg/mL Total Protein 7.6 (6.4-8.9) g/dL Albumin 3.3 (3.2-5.2) g/dL Globulin 4.3 H (2-4) g/dL Albumin/Globulin Ratio 0.8 L (1-3) Lipase < 10 L (11.0-82.0) U/L TSH 0.69 (0.34-5.60) mcIU/mL Urine Color Urine Appearance Urine pH (5-9) Ur Specific [place] (1.010-1.030) Urine Protein (Negative) Urine Ketones (Negative) Urine Blood (Negative) Urine Nitrate (Negative) Urine Bilirubin (Negative) Urine Urobilinogen (Negative) Ur Leukocyte Esterase (Negative) Urine WBC (Auto) (Absent) Urine RBC (Auto) (Absent) Ur Squamous Epith Cells (Absent) Urine Bacteria (Absent) Urine Glucose (Negative) 02/12/17 02/12/17 02/12/17 Range/Units 13:10 13:10 14:00 WBC (3.5-10.8) 10^3/ul RBC (4.0-5.4) 10^6/ul Hgb (14.0-18.0) g/dl Hct (42-52) % MCV (80-94) fL MCH (27-31) pg MCHC (31-36) g/dl RDW (10.5-15) % Plt Count (150-450) 10^3/ul MPV (7.4-10.4) um3 Neut % (Auto) (38-83) % Lymph % (Auto) (25-47) % [place] % (Auto) (1-9) % Eos % (Auto) (0-6) % Baso % (Auto) (0-2) % Absolute Neuts (auto) (1.5-7.7) 10^3/ul Absolute Lymphs (auto) (1.0-4.8) 10^3/ul Absolute Monos (auto) (0-0.8) 10^3/ul Absolute Eos (auto) (0-0.6) 10^3/ul Absolute Basos (auto) (0-0.2) 10^3/ul Absolute Nucleated RBC 10^3/ul Nucleated RBC % INR (Anticoag Therapy) (0.89-1.11) APTT (26.0-36.3) seconds D-Dimer, Quantitative (Less Than 230) ng/mL Sodium (133-145) mmol/L Potassium (3.5-5.0) mmol/L Chloride (101-111) mmol/L Carbon Dioxide (22-32) mmol/L Anion Gap (2-11) mmol/L BUN (6-24) mg/dL Creatinine (0.67-1.17) mg/dL Est GFR ( Amer) (>60) Est GFR (Non-Af Amer) (>60) BUN/Creatinine Ratio (8-20) Glucose (70-100) mg/dL Lactic Acid 1.2 (0.5-2.0) mmol/L Calcium (8.6-10.3) mg/dL Magnesium (1.9-2.7) mg/dL Total Bilirubin (0.2-1.0) mg/dL AST (13-39) U/L ALT (7-52) U/L Alkaline Phosphatase (34-104) U/L Total Creatine Kinase (10-223) U/L CK-MB (CK-2) (0.6-6.3) ng/mL Troponin I (<0.04) ng/mL C-Reactive Protein (< 5.00) mg/L B-Natriuretic Peptide 412 H ( - 100) pg/mL Total Protein (6.4-8.9) g/dL Albumin (3.2-5.2) g/dL Globulin (2-4) g/dL Albumin/Globulin Ratio (1-3) Lipase (11.0-82.0) U/L TSH (0.34-5.60) mcIU/mL Urine Color Yellow Urine Appearance Clear Urine pH 5.0 (5-9) Ur Specific [place] 1.017 (1.010-1.030) Urine Protein 1+(30 mg/dl) H (Negative) Urine Ketones Negative (Negative) Urine Blood Negative (Negative) Urine Nitrate Negative (Negative) Urine Bilirubin Negative (Negative) Urine Urobilinogen Negative (Negative) Ur Leukocyte Esterase Negative (Negative) Urine WBC (Auto) Trace(0-5/hpf) (Absent) Urine RBC (Auto) Trace(0-2/hpf) (Absent) Ur Squamous Epith Cells Present H (Absent) Urine Bacteria Absent (Absent) Urine Glucose Negative (Negative) Microbiology and Other Data: Microbiology 02/12/17 14:44 Aerobic Blood Culture - Preliminary Blood Venous No Growth Day 4 Anaerobic Blood Culture - Preliminary No Growth Day 4 Blood Culture - Final 02/12/17 18:00 Gram Stain - Final Pleural Fluid Body Fluid Culture - Preliminary No Growth Day 3 02/13/17 08:11 Aerobic Blood Culture - Preliminary Blood Venous No Growth Day 3 Anaerobic Blood Culture - Preliminary No Growth Day 3 Blood Culture - Final 02/13/17 08:02 Aerobic Blood Culture - Preliminary Blood Venous No Growth Day 3 Anaerobic Blood Culture - Preliminary No Growth Day 3 Blood Culture - Final 02/12/17 20:13 Gram Stain - Final Sputum Sputum Culture - Final Normal Tita 02/12/17 15:30 Nasal Screen MRSA (PCR)(AMAYA) - Final Nasal Mrsa Negative 02/12/17 16:59 Legionella Urinary Antigen - Final Urine Negative Legionella Streptococcus pneumoniae Ag Screen - Final Negative S. pneumo Antigen Assess/Plan/Problems-Billing Assessment: 1. Left-sided Empyema vs. Parapneumonic effusion. Resolving based on most recent imaging. No oxygen requirement. Cultures remain negative (unclear whether antibiotics were begun prior to fluid collection, which may explain the negative cultures), but he has been afebrile on clindamycin and ceftriaxone. Cytology was negative x 1. Repeat CT showed improvement in lung aeration with reduced fluid. 2. Tinea corporis continue clotrimazole cream. 3. Chronic Pain Syndrome. Long-acting po morphine (which he takes at home) was resumed yesterday. Tomorrow we will plan to reduce the dose of PRN percocet. 4. Morbid Obesity. functional status and respiratory mechanics will benefit from weight loss 5. DMII BG at goal on current regimen. 6. Dysthymic Disorder. Given his insomnia as well, will try trazodone. 6. Dispo. Plan for [facility] tomorrow for short term rehab; no bed was available today.
[2017-02-24] MEDS: Insulin GLARGINE(*) 1 UNITS UNIT SUBCUT SCH (16:39)
--- NOTE | 2017-02-24 16:48 | PN ---
Progress Note - Progress Note Date of Service: 02/24/17 - Pulm f/u Note: Pt seen and examined at bedside. Pt reports feeling better today. Denies any pain in chest. Active Medications Generic Name Dose Route Start Last Admin Trade Name Freq PRN Reason Stop Dose Admin Al Hydrox/Mg Hydrox/Simethicone 30 ml 02/13/17 12:07 02/16/17 04:57 Maalox Plus* PO 30 ml Q4H PRN Administration HEARTBURN Albuterol/Ipratropium 1 neb 02/12/17 14:47 Duoneb (Albuterol 2.5 Mg/Ipratropium 0.5 Mg) INH Q6H PRN sob/wheexing Alteplase, Recombinant 2 mg 02/20/17 13:01 Cathflo Activase* IV Q24H PRN poor PICC flow Aspirin 325 mg 02/13/17 09:00 02/24/17 09:14 Aspirin Tab* PO 325 mg DAILY SOHAN Administration Atorvastatin Calcium 10 mg 02/13/17 09:00 02/24/17 09:14 Lipitor* PO 10 mg DAILY SOHAN Administration Clotrimazole 1 applic 02/23/17 21:00 02/24/17 09:14 Clotrimazole 1%* TOPICAL 1 applic BID SOHAN Administration Dextrose 12.5 gm 02/12/17 15:28 D50w Syringe 50 Ml* IV PUSH .FOR FS < 60 - SS PRN FS < 60 Heparin Sodium (Porcine) 5,000 units 02/12/17 22:00 02/24/17 13:56 Heparin Vial(*) SUBCUT 5,000 units Q8HR SOHAN Administration Heparin Sodium (Porcine) 0 ml 02/13/17 18:00 02/24/17 06:15 Heparin Flush Picc/Ml/Cvc(*) FLUSH 1 ml 0600,1800 SOHAN Administration Ceftriaxone Sodium 2 gm/ 100 mls @ 200 mls/hr 02/13/17 21:00 02/23/17 20:25 Sodium Chloride IVPB 200 mls/hr Q24H SOHAN Administration Clindamycin HCl/Dextrose 600 mg in 50 mls @ 100 mls/hr 02/13/17 17:00 16:40 Cleocin 600 Mg Ivpremix(*) Sdv IV 100 mls/hr Q8H SOHAN Administration Insulin Glargine 18 units 02/18/17 16:00 02/24/17 16:39 Lantus(*) SUBCUT 18 units Q24H SOHAN Administration Insulin Human Lispro 0 units 02/16/17 15:22 02/24/17 13:40 Humalog* SUBCUT Not Given ACHS [facility] Protocol Lisinopril 20 mg 02/18/17 09:00 02/24/17 09:14 Prinivil Tab* PO 20 mg DAILY SOHAN Administration Magnesium Oxide 800 mg 02/13/17 09:00 02/24/17 09:14 Magox 400 Tab* PO 800 mg DAILY SOHAN Administration Melatonin 3 mg 02/18/17 20:36 02/23/17 21:30 Melatonin (Nf) PO 3 mg BEDTIME PRN Administration INSOMNIA Morphine Sulfate 15 mg 02/22/17 22:00 02/24/17 09:15 Ms Contin(*) PO 15 mg Q12H SOHAN Administration Oxycodone/Acetaminophen 2 tab 02/22/17 10:43 02/24/17 14:00 Percocet 5/325 Tab* PO 2 tab Q4H PRN Administration PAIN Polyethylene Glycol/Electrolytes 17 gm 02/18/17 21:00 02/24/17 09:13 Miralax* PO 17 gm 0800,2100 SOHAN Administration Pramipexole Dihydrochloride 0.125 mg 02/12/17 21:00 02/24/17 09:14 Mirapex Tab* PO 0.125 mg BID SOHAN Administration Promethazine HCl 25 mg 02/14/17 11:20 02/14/17 11:41 Phenergan Inj(Restricted)* IM 25 mg Q6H PRN Administration NAUSEA/VOMITING Trazodone HCl 50 mg 02/24/17 21:00 Desyrel Tab* PO BEDTIME [facility] Vital Signs Temp Pulse Resp BP Pulse Ox 98.4 F 68 16 159/67 92 02/24/17 11:20 02/24/17 11:20 02/24/17 14:00 02/24/17 11:20 02/24/17 11:20 Gen: Morbidly obese male in NAD, sitting up in recliner in NAD HEENT: PERRLA, No JVD, MP-4 Lungs: Diminished air entry at bases, no wheeze, no redness around insertion site CVS: S1, S2+, regular Abd: Obese, BS+ Ext: Trace edema Neuro: No focal defecits Laboratory Results - last 24 hr 02/23/17 02/23/17 02/24/17 16:42 19:53 07:48 POC Glucose (mg/dL) 129 H 195 H 130 H 02/24/17 12:39 POC Glucose (mg/dL) [address] chest 02/14/17- Improvement in left effusion, no significant mediastinal shift , less atlectasis of left lung CXR 02/18/17: Interval improvement in left sided effusion CT chest 02/19, was personally reviewed- Improvement in loculated effusion, with posteriorly loculated small effusion I/R: 72 y o morbidly obese m, former smoker with loculated lt effusion, leucocytosis, elevated CRP concerning for infectious etiology Pleural fluid cx negative, exudative effusion as per available criteria Cytology negative for malignancy, acute and chronic inflammation present On broad spectrum abx Had chest tube and pig tail, leucocytosis improving Rpt CT chest showed improvement in effusion Waiting d/c to rehab
[2017-02-24] MEDS ORDERED: traZODone TAB* 50 MG TAB PO SCH (21:00)
[2017-02-25] MEDS: oxyCODONE/Acetamin 5/325 MG* TAB PO PRN ×2 (01:10→05:04)
[2017-02-25] MEDS: Clindamycin 600 MG IVPREMIX(* 600 MG/50 ML SDV IV SCH ×2 (01:11→08:43)
[2017-02-25] MEDS: Heparin VIAL(*) 5000 UNITS/ML VIAL (FIVE THOUSAND) SUBCUT SCH ×2 (05:35→13:59)
[2017-02-25] MEDS: Insulin LISPRO* 1 UNITS UNIT SUBCUT SCH ×2 (07:35→12:36)
[2017-02-25] MEDS: Lisinopril TAB* 10 MG PO SCH (08:42)
[2017-02-25] MEDS: Magnesium Oxide TAB* 400 MG PO SCH (08:42)
[2017-02-25] MEDS: Aspirin TAB* 325 MG PO SCH (08:42)
[2017-02-25] MEDS: Polyethylene Glycol 3350* 17 GM PACKET PO SCH (08:42)
[2017-02-25] MEDS: Clotrimazole 1% CREAM* 45 GM TOPICAL SCH (08:43)
[2017-02-25] MEDS: Atorvastatin* 10 MG TAB PO SCH (08:43)
[2017-02-25] MEDS: Pramipexole TAB* 0.125 MG PO SCH (09:05)
[2017-02-25] MEDS: Morphine TAB Extended Release (*) 15 MG TAB.ER PO SCH (10:18)
[2017-02-25] MEDS ORDERED: Alteplase (CATHFLO)* 2 MG VIAL IV ONE (11:00)
[2017-02-25] MEDS ORDERED: oxyCODONE/Acetamin 5/325 MG* TAB PO PRN ×2 (11:33→12:21)
[2017-02-25 11:45] VITALS: BP 155/77
[2017-02-25] MEDS ORDERED: Hydrocortisone 1% CREAM* 30 GM TUBE TOPICAL SCH (12:00)
[2017-02-25] MEDS ORDERED: cefTRIAXone VIAL(*) 1,000 MG in NS 0.9% 50 ML* 50 ML IVPB ONE (13:12)
[2017-02-25] MEDS ORDERED: Clindamycin CAP* 150 MG PO SCH (14:00)
--- NOTE | 2017-02-25 14:03 | DS ---
Admission date: 02/12/17 Discharge date : 02/25/17 Primary diagnosis: Complex Parapneumonic Effusion Secondary diagnoses: Sepsis Obesity MISAEL Narcotic Dependence Chronic Pain Syndrome Tobacco Abuse DM2 PMH: DM2, HTN, Obesity, DM2, chronic pain, gerd CC: Dr. Perdomo, Dr. Chris, Dr. Crocker Discharge Follow Up: Please arrange follow up with Dr. Chris within 2 week, Dr. Crocker within 4 weeks, and Dr. Quiles within 4 weeks. Please check CBC, CMP, and CRP weekly and fax the results to Dr. Chris's office at [facility] Infectious Diseases. Physical Exam 02/25: General: Alert, well appearing, walking with a walker without dyspnea or tachypnea HEENT: moist mucosa, EOMI Neck: No jvp, no lymphadenopathy Chest: RRR, no murmurs, 0.5" incision left mid-axillary line without drainage, few erythematous patches surrounding it. Lungs clear bilaterally, no rhonchi Abdomen: obese, nontender, nondistended Ext: no edema, no clubbing, RUE picc line in place Hospital Course by Problem: 1. Loculated Parapneumonic Effusion, left-sided He was admitted to the ICU initially. A chest tube was placed and he was initiated on broad spectrum antibiotics. Fluid was exudative by Light's criteria. A TTE was unremarkable. Cultures of the pleural fluid were ultimately negative. Cytology of the fluid was also negative. Legionella antigen was negative. Pulmonary, ID, and surgery were consulted. While the pleural fluid sample had only 595 WBC/mcl, parapneumonic effusion was still thought to be the most likely source given his recent symptoms of productive cough, the acuity of onset, and his sepsis presentation. ID recommended ceftriaxone and clindamycin x 30 days after the pigtail was pulled. His last day of antibiotics will be March 22. He has a long history of tobacco abuse, so he will likely need repeat imaging after antibiotics are completed to rule out undetected malignancy. 2. Acute Hypoxic Respiratory Failure He was found to be hypoxic at admission and was sent to the ICU. He did not require any mechanical ventilation and oxygen was weaned to room air. 3. Sepsis, related to #1. Blood cultures remained negative, pleural fluid cultures remained negative as above, and remainder of infectious work up was negative. 4. Narcotic Dependence. His family reported that he had taken extra percocet prior to admission, and he admitted to decreasing efficacy of his pain medications lately. He expressed desire to reduce his dose long-term. We transitioned him back to his long- acting morphine here, and will plan to continue to reduce percocet PRN. 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 This is requested of [facility]. 5. DM2. He was well controlled on lantus/lispro in the hospital. He had not been on insulin prior to admission, but has been at goal on this regimen. 6. HTN. continue Lisinopril 7. Tinea Corporis Please continue clotrimazole cream to plaques on left chest until resolved Disposition: To [facility] 02/25/17 for short term rehabilitation.
== END 2017-02-25 14:30 | DRG 720 ==
LOC: ED 12:53 → ICU 14:16 → SSU 02-15 14:20
PROVIDERS: ADMIT Internal Medicine; ATTEND Internal Medicine
PROC: 0W9B00Z Drainage of Left Pleural Cavity with Drainage Device, Open Approach (ICD-10-PCS; principal; 2017-02-12)
PROC: 5A09357 Assistance with Respiratory Ventilation, Less than 24 Consecutive Hours, Continuous Positive Airway Pressure (ICD-10-PCS; 2017-02-12)
PROC: 02HV33Z Insertion of Infusion Device into Superior Vena Cava, Percutaneous Approach (ICD-10-PCS; 2017-02-13)
PROC: 3E0L3GC Introduction of Other Therapeutic Substance into Pleural Cavity, Percutaneous Approach (ICD-10-PCS; 2017-02-17)
PROC: 0WHB33Z Insertion of Infusion Device into Left Pleural Cavity, Percutaneous Approach (ICD-10-PCS; 2017-02-20)
PROC: 0WPBX0Z Removal of Drainage Device from Left Pleural Cavity, External Approach (ICD-10-PCS; 2017-02-20)
PROC: 0WPBX3Z Removal of Infusion Device from Left Pleural Cavity, External Approach (ICD-10-PCS; 2017-02-21)
DX: A41.9 Sepsis, unspecified organism (principal); J96.01 Acute respiratory failure with hypoxia; J86.9 Pyothorax without fistula; J90 Pleural effusion, not elsewhere classified; J18.9 Pneumonia, unspecified organism; N17.9 Acute kidney failure, unspecified; E11.36 Type 2 diabetes mellitus with diabetic cataract; F11.20 Opioid dependence, uncomplicated; Z68.41 Body mass index [BMI] 40.0-44.9, adult; Z88.2 Allergy status to sulfonamides; G47.33 Obstructive sleep apnea (adult) (pediatric); M17.0 Bilateral primary osteoarthritis of knee; F32.9 Major depressive disorder, single episode, unspecified; Z72.89 Other problems related to lifestyle; R40.2412 Glasgow coma scale score 13-15, at arrival to emergency department; K21.9 Gastro-esophageal reflux disease without esophagitis; E78.5 Hyperlipidemia, unspecified; Z80.0 Family history of malignant neoplasm of digestive organs; E66.01 Morbid (severe) obesity due to excess calories; Z87.891 Personal history of nicotine dependence; F34.1 Dysthymic disorder; B35.4 Tinea corporis; G89.4 Chronic pain syndrome
CPT/HCPCS: 36415; 49406; 71010; 71020; 71250; 71275; 80048; 80053; 81003; 81015; 82550; 82553; 83605; 83690; 83735; 83880; 84157; 84443; 84484; 85025; 85027; 85379; 85610; 85730; 86140; 87040; 87070; 87205; 87641; 87899; 88112; 89051; 93005; 93306; 94640; 94660; 94760; A9270-GY; C1751; C8929; J0456; J0696; J1644; J2001; J2060; J2270; J2405; J2997; J3010; J7639; Q9967